=== PATIENT | male | born 1940 | race Caucasian/White ===

== ENCOUNTER → 2020-10-07 14:02 | Outpatient (BNVA) | payer MEDICARE, SELFPAY | PROVIDERS: PCP Internal Medicine Endocrinology, Diabetes & Metabolism; Visit Provider Hospitalist | DX: J44.9 Chronic obstructive pulmonary disease, unspecified (principal); G47.33 Obstructive sleep apnea (adult) (pediatric); R06.00 Dyspnea, unspecified; Z99.89 Dependence on other enabling machines and devices | CPT/HCPCS: 99212 ==

== ENCOUNTER 2021-04-07 12:25 | Outpatient (REF) | payer MEDICARE, SELFPAY ==
--- NOTE | ~2021-04-07 | XR_ITS ---
EXAMINATION: XR CHEST CLINICAL INFORMATION: Dyspnea unspecified. COMPARISON: Chest radiograph 02/19/2020, 09/29/2019. TECHNIQUE: 2 views of the chest were obtained. FINDINGS: Right supraclavicular and right cervical vascular clips are again noted and may correspond to cervical lymph node dissection. Cardiomediastinal silhouette is normal in appearance. No effusions or pneumothoraces are identified. Vague density suspicious for left base calcified pleural plaques is present and unchanged compared with 09/29/2019. A normal pattern of pulmonary vasculature is identified. No focal pulmonary consolidation is noted. Partial visualization is made of deformity of the left humeral head is not fully included within the image [id number]. XR/XR chest 2V IMPRESSION: 1. No acute cardiopulmonary abnormalities identified. No evidence of active pulmonary edema or pneumonia. 2. 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 3. Multiple vascular clips within the right supraclavicular and right cervical region. 4. Partially visualized deformity of the left humeral head which may represent a combination of arthropathic changes and posttraumatic deformity.
--- NOTE | 2021-04-07 17:47 | PFT_ITS ---
Forced vital capacity, FEV1, [id number] and MVV are all markedly decreased. FEV1/FVC ratio is normal. After bronchodilator therapy, there is a slight improvement in FEV1, [id number]. Total lung capacity moderately decreased. Residual volume normal. Diffusion capacity moderately decreased. CONCLUSION: Moderately severe restrictive pulmonary disorder. Also presence of mild obstructive airway disorder with good response to bronchodilator therapy. This indicates that the patient probably does have a component of bronchial asthma. Clinical correlation recommended. Xiomara Smith MD MSB/MODL / [id number]
== END 2021-04-07 12:26 | disposition home or self-care (01) ==
LOC: HO.RESP 12:25
PROVIDERS: Visit Provider Hospitalist
DX: R60.0 Localized edema (principal); J44.9 Chronic obstructive pulmonary disease, unspecified
CPT/HCPCS: 71046; 94060; 94727; 94729; 99212

== ENCOUNTER → 2021-10-13 13:09 | Outpatient (BNVA) | payer MEDICARE, SELFPAY | PROVIDERS: PCP Internal Medicine Endocrinology, Diabetes & Metabolism; Visit Provider Hospitalist | DX: J44.9 Chronic obstructive pulmonary disease, unspecified (principal); J61 Pneumoconiosis due to asbestos and other mineral fibers; R06.02 Shortness of breath; G47.33 Obstructive sleep apnea (adult) (pediatric); Z99.89 Dependence on other enabling machines and devices | CPT/HCPCS: 99212 ==

== ENCOUNTER 2021-10-19 14:19 | Outpatient (REF) | payer MEDICARE, SELFPAY ==
--- NOTE | ~2021-10-19 | CT_ITS ---
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 COMPARISON: Chest x-ray 04/07/2021 TECHNIQUE: Multidetector volumetric CT imaging of the chest was done. Axial MIP volume rendering provided. Sagittal and coronal reformatted images were obtained. This CT examination was performed using dose optimization techniques as appropriate, variously including the following: *Automated exposure control *Adjustment of mA and/or kV according to patient size (this includes techniques or standardized protocols for targeted exams where dose is matched to indication/reason for exam; i.e. extremities or head) *Use of iterative reconstruction technique DLP: 537 mGy-cm FINDINGS: ELECTRONIC GLUER: Well-inflated lungs LUNGS: The lungs are well-expanded without acute pneumonic process. There is an ill-defined 7 mm ground-glass opacity, right upper lobe axial image 80/4. There is plate-like atelectasis right lower lobe. No pulmonary nodule or mass seen. MEDIASTINUM: There are surgical magnus seen in the right neck from previous intervention. Central trachea and the bronchi widely patent. Heart size and the great vessels are normal caliber. There are no coronary artery calcification. No pericardial effusion. No abnormal size mediastinal or hilar lymph nodes seen. Thyroid lobes are not clearly visualized. PLEURA: There are punctate bilateral posterior pleural calcifications but no pleural thickening or effusion. AXILLA: There are no abnormal axillary lymph nodes. The chest wall is unremarkable. UPPER ABDOMEN: Visualized liver, spleen and pancreas appear unremarkable. OSSEOUS STRUCTURES: There is no lytic or sclerotic process seen. There is mild ventral spondylosis of dorsal spine. CT/CT chest wo con IMPRESSION: 1. Mild bilateral thin plaque-like pleural calcifications but no pleural effusion or thickening seen. 2. Nonspecific ground-glass opacity, right upper lobe. Plate-like atelectasis right lower lobe. No mass, consolidation or pulmonary nodules seen. 3. No abnormal mediastinal or axillary lymphadenopathy seen. Fleischner guidelines were followed.
== END 2021-10-19 14:20 | disposition home or self-care (01) ==
LOC: HO.CT 14:19
PROVIDERS: PCP Internal Medicine Endocrinology, Diabetes & Metabolism; Visit Provider Hospitalist
DX: J44.9 Chronic obstructive pulmonary disease, unspecified (principal); J61 Pneumoconiosis due to asbestos and other mineral fibers
CPT/HCPCS: 71250

== ENCOUNTER → 2021-12-09 13:48 | Outpatient (BNVA) | payer MEDICARE, SELFPAY | PROVIDERS: PCP Internal Medicine Endocrinology, Diabetes & Metabolism; Visit Provider Hospitalist | DX: J44.9 Chronic obstructive pulmonary disease, unspecified (principal); J61 Pneumoconiosis due to asbestos and other mineral fibers; J92.0 Pleural plaque with presence of asbestos; G47.33 Obstructive sleep apnea (adult) (pediatric); R91.8 Other nonspecific abnormal finding of lung field; Z79.899 Other long term (current) drug therapy; Z99.81 Dependence on supplemental oxygen; Z99.89 Dependence on other enabling machines and devices | CPT/HCPCS: 99212 ==

== ENCOUNTER → 2022-06-12 13:27 | Outpatient (BNVA) | payer OTHER, SELFPAY | PROVIDERS: PCP Internal Medicine Endocrinology, Diabetes & Metabolism; Visit Provider Hospitalist | DX: J44.9 Chronic obstructive pulmonary disease, unspecified (principal); G47.33 Obstructive sleep apnea (adult) (pediatric); R06.02 Shortness of breath; J61 Pneumoconiosis due to asbestos and other mineral fibers; J92.0 Pleural plaque with presence of asbestos; R91.8 Other nonspecific abnormal finding of lung field; Z99.89 Dependence on other enabling machines and devices | CPT/HCPCS: 99212 ==

== ENCOUNTER 2022-10-23 06:25 | Outpatient (REF) | payer MEDICARE, SELFPAY ==
--- NOTE | ~2022-10-23 | CT_ITS ---
EXAMINATION: CT CHEST WITHOUT CONTRAST CLINICAL INFORMATION: Solitary pulmonary nodule. COMPARISON: 10/19/2021 TECHNIQUE: Multidetector volumetric CT imaging of the chest was done. Axial MIP volume rendering provided. Sagittal and coronal reformatted images were obtained. This CT examination was performed using dose optimization techniques as appropriate, variously including the following: *Automated exposure control *Adjustment of mA and/or kV according to patient size (this includes techniques or standardized protocols for targeted exams where dose is matched to indication/reason for exam; i.e. extremities or head) *Use of iterative reconstruction technique DLP: 406 mGy-cm FINDINGS: LUNGS: The previously seen ill-defined ground-glass opacity in the right upper lobe is larger. By my measurements, this previously measured about 7-8 mm and, on the current study, this measures 13 mm. In addition, there appears to be more of a solid component associated with this than seen on the prior exam. The density now extends to the pleural surface and is associated with some mild pleural thickening. No other worrisome masses, infiltrates or nodules are seen. MEDIASTINUM: No mediastinal or hilar lymphadenopathy. Surgical clips are noted in the right neck. CORONARY ARTERY CALCIFICATION: Present. PLEURA: Again seen are bilateral calcified pleural plaques, left greater than right. No pleural effusions. AXILLA: There is a 3.1 x 2.6 x 3.2 cm soft tissue mass present in the left axilla, previously this was smaller and measured 2.4 x 1.9 x 2.8 cm. UPPER ABDOMEN: Unremarkable. OSSEOUS STRUCTURES: Degenerative changes are present in the spine. CT/CT chest wo IV con IMPRESSION: 1. Increasing size of the right upper lobe ground-glass opacity with increased solid component. 2. Enlarging left axillary mass. 3. PET/CT may be useful for further evaluation. Fleischner guidelines were followed.
== END 2022-10-23 06:26 | disposition home or self-care (01) ==
LOC: HO.CT 06:25
PROVIDERS: PCP Internal Medicine Endocrinology, Diabetes & Metabolism; Visit Provider Hospitalist
DX: R91.1 Solitary pulmonary nodule (principal)
CPT/HCPCS: 71250

== ENCOUNTER → 2022-12-05 12:34 | Outpatient (BNVA) | payer MEDICARE, SELFPAY | PROVIDERS: PCP Internal Medicine Endocrinology, Diabetes & Metabolism; Visit Provider Hospitalist | DX: J44.9 Chronic obstructive pulmonary disease, unspecified (principal); J92.0 Pleural plaque with presence of asbestos; J61 Pneumoconiosis due to asbestos and other mineral fibers; R91.8 Other nonspecific abnormal finding of lung field; R91.1 Solitary pulmonary nodule; G47.33 Obstructive sleep apnea (adult) (pediatric); R06.02 Shortness of breath; Z99.89 Dependence on other enabling machines and devices | CPT/HCPCS: 99212 ==

== ENCOUNTER 2022-12-07 08:23 | Outpatient (REF) | payer MEDICARE, SELFPAY ==
--- NOTE | 2022-12-07 10:14 | PFT_ITS ---
DIAGNOSIS: Dyspnea. SPIROMETRY: FEV1 to FVC of 72% with an FEV1 of 1.41 L, which is 53% predicted and FVC of 1.94 L, which is 51% predicted. No significant response to bronchodilator is noted. The FEF 25/75 has decreased down to 49% predicted and maximum voluntary ventilation 44% predicted. LUNG VOLUMES: Total lung capacity 72% predicted with an expiratory residual volume of 22% predicted. DIFFUSION CAPACITY: DLCO 50% predicted, but it does correct to 85% predicted when correcting for the alveolar volume. COMPARISON: PFTs from 2020. INTERPRETATION: No definitive obstructive ventilatory defect. The patient does have evidence of small airway disease, which could be secondary to his body habitus, although asthma also in the differential. There was also a significant decrease in the maximum voluntary ventilation secondary to likely deconditioning. Lung volumes do demonstrate a restricted ventilatory defect consistent with mild respiratory lung disease, partly due to his body habitus and his decrease in the expiratory residual volume. The patent also has a moderate diffusion impairment and does correct to normal and correcting for the alveolar volume. Clinical correlation warranted. MD NADJA Reardon/MODL / [id number]
== END 2022-12-07 08:24 | disposition home or self-care (01) ==
LOC: HO.RESP 08:23
PROVIDERS: PCP Internal Medicine Endocrinology, Diabetes & Metabolism; Visit Provider Hospitalist
DX: R91.1 Solitary pulmonary nodule (principal)
CPT/HCPCS: 94060; 94727; 94729

== ENCOUNTER → 2022-12-22 10:30 | Outpatient (BNVA) | payer MEDICARE, SELFPAY | PROVIDERS: PCP Internal Medicine Endocrinology, Diabetes & Metabolism; Visit Provider Surgery | DX: R91.1 Solitary pulmonary nodule (principal) | CPT/HCPCS: 99202 ==

== ENCOUNTER 2023-01-09 07:06 | Outpatient (REF) | payer MEDICARE, SELFPAY ==
--- NOTE | ~2023-01-09 | CT_ITS ---
EXAMINATION: CT CHEST WITHOUT CONTRAST CLINICAL INFORMATION: Pulmonary nodule COMPARISON: Previous chest CT most recent September 2022 TECHNIQUE: Multidetector volumetric CT imaging of the chest was done. Axial MIP volume rendering provided. Sagittal and coronal reformatted images were obtained. This CT examination was performed using dose optimization techniques as appropriate, variously including the following: *Automated exposure control *Adjustment of mA and/or kV according to patient size (this includes techniques or standardized protocols for targeted exams where dose is matched to indication/reason for exam; i.e. extremities or head) *Use of iterative reconstruction technique DLP: 426 mGy-cm FINDINGS: BUSINESS LEADER: LUNGS: Heterogeneous or semisolid right upper lobe nodule. This is not appreciably changed from most recent exam September 2022 and increased from older chest CT September 2021. This measures 1.3 x 0.9 cm in transverse and AP dimension axial image series 7. Denser solid component measures 0.6 x 0.3 cm in transverse and AP dimension axial image 2:15 series 7 and is unchanged from most recent exam. This extends to the pleural surface and there is mild adjacent pleural thickening. This is unchanged. There is faint increased groundglass attenuation in the right upper lobe measuring 1.8 cm axial image 147 series 9. There are small peribronchial nodules or increase in peribronchial attenuation. There is a 2 cm cyst in the left lower lobe. There is subsegmental atelectasis in the posterior medial left lower lobe adjacent to the spine and descending thoracic aorta. The lungs are otherwise clear. MEDIASTINUM: Surgical clips in the right lower neck. The mediastinum is normal. CORONARY ARTERY CALCIFICATION: Mild PLEURA: Scattered areas of bilateral mild pleural thickening and pleural calcification. No mass or pleural effusion. AXILLA: No lymphadenopathy. UPPER ABDOMEN: Unremarkable. OSSEOUS STRUCTURES: Degenerative changes of the spine. CT/CT chest wo IV con IMPRESSION: Stable heterogeneous right upper lobe nodule most recent exam September 2022. This is increased from older exam September [address] follow-up recommended. Fleischner guidelines were followed.
== END 2023-01-09 07:07 | disposition home or self-care (01) ==
LOC: HO.CT 07:06
PROVIDERS: PCP Internal Medicine Endocrinology, Diabetes & Metabolism; Visit Provider Surgery
DX: R91.1 Solitary pulmonary nodule (principal)
CPT/HCPCS: 71250

== ENCOUNTER → 2023-02-08 09:27 | Outpatient (BNV) | payer MEDICARE, SELFPAY | PROVIDERS: PCP Internal Medicine Endocrinology, Diabetes & Metabolism; Visit Provider Internal Medicine Medical Oncology | DX: C34.91 Malignant neoplasm of unspecified part of right bronchus or lung (principal) | CPT/HCPCS: 99204; 99213 ==

== ENCOUNTER 2023-02-13 12:20 | Outpatient (REF) | payer MEDICARE, SELFPAY ==
--- NOTE | ~2023-02-13 | US_ITS ---
EXAMINATION: Ultrasound extremity nonvascular CLINICAL INFORMATION: Patient presents for left axillary lymph node biopsy COMPARISON: Previous chest CT most recent 01/09/2023 TECHNIQUE: Ultrasound of the left axilla was performed. FINDINGS: No solid soft tissue mass or lymph node is appreciated. There is a cystic area in the left axilla adjacent to the bone. This measures 4 x 2 x 2.3 cm. When compared with previous chest CT scans, this likely represents a ganglion or cyst related to left shoulder arthritis. No ultrasound-guided biopsy was performed. US/US extremity nonvascular IMPRESSION: No lymphadenopathy or solid mass. 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
== END 2023-02-13 12:21 | disposition home or self-care (01) ==
LOC: HO.US 12:20
PROVIDERS: PCP Internal Medicine Endocrinology, Diabetes & Metabolism; Visit Provider Hospitalist
DX: R22.32 Localized swelling, mass and lump, left upper limb (principal)
CPT/HCPCS: 76882

== ENCOUNTER 2023-03-08 12:53 | Outpatient (REF) | payer MEDICARE, SELFPAY ==
--- NOTE | ~2023-03-08 | XR_ITS ---
EXAMINATION: XR CHEST CLINICAL INFORMATION: Bronchitis. COMPARISON: CT chest 01/09/2023 and chest radiograph 04/07/2021. TECHNIQUE: 2 views of the chest were obtained. FINDINGS: Compared to the prior chest radiograph as well as the prior CT scan, there is increased volume loss in the right lung with shift of the mediastinum to the right and increased opacity at the right lung apex. A right pleural effusion appears to be present as well. XR/XR chest 2V IMPRESSION: Increasing volume loss in the right lung with shift of the mediastinum to the right and increased opacity at the right lung apex. Findings could represent right upper lobe collapse. A contrast-enhanced CT scan could be performed for further evaluation.
== END 2023-03-08 12:54 | disposition home or self-care (01) ==
LOC: HO.XRAY 12:53
PROVIDERS: PCP Internal Medicine Endocrinology, Diabetes & Metabolism; Visit Provider Hospitalist
DX: R91.1 Solitary pulmonary nodule (principal); J44.9 Chronic obstructive pulmonary disease, unspecified; R06.02 Shortness of breath; G47.33 Obstructive sleep apnea (adult) (pediatric); Z99.89 Dependence on other enabling machines and devices
CPT/HCPCS: 71046; 99212

== ENCOUNTER 2023-03-08 12:53 | Outpatient (AMB) | payer MEDICARE, SELFPAY ==
--- NOTE | 2023-03-08 13:03 | MHC.OFFVIS ---
Intake Vital Signs 03/08/23 13:04 Height 5 ft 9 in Weight 283 lb 5 oz BMI 41.8 Pulse 82 Pulse Source Pulse Oximeter Pulse Oximetry (%) 96 Oxygen Delivery Method Room Air Comment 5 Liters Oxygen(Inogen) Intake Visit Reasons: copd [employer] Project [employer] Required: No Allergies acetaminophen [Percocet] Allergy (Severe, Verified 03/08/23 13:05) Difficulty Swallowing oxycodone [Percocet] Allergy (Severe, Verified 03/08/23 13:05) Difficulty Swallowing HPI HPI Comments History of Present Illness Details The patient is a 82-year-old gentleman known asthma COPD overlap syndrome in addition to chronic cough and DUANE on CPAP. Overall he is doing better on the budesonide and albuterol. He hasn't had to use yet Peter all on a regular basis. However, now that he has been using he started having significant shakes and tremors. There pretty moderate severity. Usually when they happen his knee down because he he is concerned is going to fall. His symptoms may last for several hours. He is wondering if he can do something about it. He has a lot of albuterol left over. We talked about switching over to Xopenex or given him a lower dose concentration albuterol. In the meantime he can try doing less time on the nebulizer with the albuterol to do a half a treatment and see if this is enough to be beneficial without as many side effects. He has been coughing. The cough is a lot better. Nonproductive in nature. We talked about doing an x-ray. He will do it during the next time. Otherwise he has had some lower extremity edema. 10/07/2020 the patient is here for pulmonary follow-up visit. The patient describes significant shortness of breath. He feels that he is getting more winded with any activity. He does continue taking his nebulized therapy with improvement of his symptoms. However, the Xopenex even makes him have tremors and therefore he does not use it as often as he should. He should be using the budesonide regularly. Patient continues using the CPAP therapy. The CPAP therapy continues to be affecting beneficial. He does use it for more than 4 hours a night. He states that he has not been getting supplies for some reason from his [employer] company. I will send a prescription over so he can continue getting supplies. He has had very good adherence to therapy. In addition to that he also needs to get supplies for his nebulizer equipment. At some point he declined to get any supplies and then he has not gotten any supplies since then. Will send another prescription for him to get supplies again from his DME company. During the visit the patient did go for 6 minutes walk test the patient unfortunately decreased down to 88% on room air. Patient qualify for oxygen. He was very short of breath with a Tasha score of 8/10. He was placed on 2 L in his respiratory status did improve. He was able to ambulate further in his maintain a pulse ox of 94% on 2 L with activity which is reassuring. Will set him up with oxygen through his current [employer] company [employer]. 04/07/2021 the patient is here for a pulmonary follow-up visit. Overall the patient is feeling better on the oxygen. The oxygen therapy has been affecting beneficial. He continues with his nebulized therapy. At times he has not had to use it as often. Specially since he is getting some much more relief from the oxygen. He did undergo pulmonary function studies which were personally by me which demonstrated a moderate restrictive ventilatory defect. No significant obstruction noted. Therefore, most of his respiratory issues are due to his restrictive lung disease. 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 Patient does have evidence of asbestos related lung disease. 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 I will have undergo a chest x-ray. The patient needs to continue using the oxygen with activity and also he can also use it at rest specially if his pulse ox is below 90%. He is also having issues with lower extremity edema. Recently his Lasix was increased in that did improve his respiratory status and his edema as well. Otherwise patient is without any other complaints. 10/13/2021 the patient is here for a pulmonary follow-up visit. He continues to have dyspnea on exertion. Moderate severity. The oxygen has been helpful. In addition to that he continues with respiratory therapy. We did review his last chest x-ray Was abnormal with pleural plaques. At this point the patient continues to be symptomatic and the best way to assess the abnormal chest x-ray will be biking a CT scan of the chest to better address the area. The patient does have a significant history of acid exposure. 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 He starts work at 19:59 and again he worked in the industry until he retired. In view of the patient's worsening respiratory it is very likely that he has asbestosis from his significant exposure while he was working for those many years. Will request a CT scan at this time to better address the symptoms and the abnormal chest x-ray. In the meantime the patient has been using his CPAP with the oxygen. The CPAP therapy has been affecting beneficial. He has had the CPAP machine for now about more than 10 years. CPAP is no longer working effectively in cannot be monitored regularly. Under request a replacement CPAP for the patient for him to continue using with the oxygen. 12/09/2021 the patient is here for a pulmonary follow-up visit. Overall the patient continues to have dyspnea on exertion [id number] severity. The oxygen continues to be very helpful. He is here with her son today. We did review his CT scan of the chest demonstrating the asbestos related changes. He does have pleural plaques bilaterally consistent with his exposure to work-related asbestos consistent with pneumoconiosis. In addition to that he does have a 7 mm ground-glass the nodular density in the right upper lobe area that will need follow-up. Regarding the CPAP therapy. This continues to be affecting beneficial. Although, his CPAP is no longer functional and he needs to get a replacement machine. We did request 1 during the last visit and hopefully this will be provided soon. 06/12/2022 the patient is here for a pulmonary follow-up visit. He continues to do well. He is responding well to his respiratory therapy. He was also using his oxygen continuously. He has a portable oxygen concentrator that he uses when he leaves the home. He does use the oxygen with his CPAP at nighttime. He did get the new CPAP in appears to be working well. The CPAP therapy has been affecting beneficial. He does use it for more than 4 hours a night. We did review his last CT scan of the chest that was done back in November 2021. He appears to have some nodular densities some of them appear to be subsolid in nature specially the 1 in the right upper lobe. therefore, this nodule appears to be more concerning and will need close follow-up. Therefore will plan to repeat the CT scan prior to his next appointment in the spring. If the patient has any worsening symptoms prior to that he is to call the office for an earlier evaluation. 12/05/2022 the patient is here for a pulmonary follow-up visit. Overall he is doing better from a respiratory status. He has had significant amount of weight loss that has been intentional. This has helped his breathing and also other comorbidities. He continues uses respiratory therapy as prescribed. He is also using the CPAP. The CPAP therapy continues to be affecting beneficial. He does use with oxygen. He does use it for more than 4 hours a night. He did undergo a recent CT scan of the chest and here for follow-up. We did review the findings. It appears that the right upper lobe pulmonary nodule which is subsolid in nature has become slightly larger. The fact that is becoming solidified is concerning for a malignant transformation. It is also mentioned about the axillary density which appears to be larger as well. Based on the findings I did talk to the patient about the different options. One option would be to refer him to thoracic surgery to see about potential resection of the pulmonary nodule. The patient already has evidence of chronic respiratory failure but if this is malignant surgery will have curative intent if there is no other disease elsewhere. Another option be to try to attempt a CT-guided biopsy. This will be helpful to get a better understanding of this changing nodular density specially in view of his respiratory failure and avoiding any unnecessary surgery. The trigger option would be to get a PET scan. PET scan unfortunately, may not be very effective with subsolid nodules but in view of having the other findings indeed would help assess the metabolic activity of these nodular densities. The 4th option would be to watch and wait. However based on the fact that this nodular densities change in both in size and also in solid component would advise and not to wait. 03/08/2023 the patient is here for a pulmonary follow-up visit. 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 He required a lobectomy. He also had question on involvement in the periphery and was recommended to undergo chemotherapy. PDL1 activity was negligible. The patient opted on no chemotherapy at this time. He has been noticing worsening respiratory symptoms and also worsening cough for the last several days. He has been using his oxygen at 5 L pulse and then continues at home. Denies any fevers or chills. Does feel some chest heaviness. Will go and request a chest x-ray and also start him on prednisone and antibiotics. if the patient is no better he needs to call the office or go to the ER for further care. The patient is also having dysphagia. Family for some reason are resistant to a barium swallow. I will refer to speech pathology for an evaluation. 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 Pulmonary nodule T2DM (type 2 diabetes mellitus) Surgical History Status post removal of lung Family History Mother Anemia Stroke Father Dementia Social History Patient Tobacco Use Status: Former Tobacco user Tobacco use type: Cigarette Years Smoked: 20 years service: No Review of Systems Const Denies night sweats and Reports weight loss ENT Denies change in voice, Denies lip swelling, Denies mouth pain, Reports nasal congestion, Reports nasal discharge and Denies tongue swelling Card Reports dyspnea and Reports dyspnea on exertion Resp Reports chest congestion, Reports cough, Reports dyspnea, Reports dyspnea on exertion and Reports wheezing GI Denies abdominal pain Musc Denies no additional complaints Neuro Denies Neuro-related abnormal movements Psych Denies no additional complaints Roel/Lymph Denies easy bleeding and Denies lymphadenopathy Aller/Immun Denies lip swelling, Denies tongue swelling and Reports wheezing Physical Exam Vital Signs: Last Vital Signs Pulse 82 03/08/23 13:04 Pulse Ox 96 03/08/23 13:04 Oxygen Delivery Method Room Air 03/08/23 13:04 BMI result Body Mass Index 41.8 Const General: alert HEENT General nose exam: Abnormal external nose present and Nasal discharge present Eyes Pupils: Equal, round and reactive pupils present Neck Neck: Yes normal visual inspection, Yes full ROM and Yes no lymphadenopathy Chest Chest palpation & inspection: normal inspection of the chest Resp Auscultation: no wheezes and diminished lung sounds Cardio Rate: regular rate Rhythm: regular rhythm Heart sounds: S1 normal heart sound present and S2 normal heart sound present GI Palpation (GI): Soft to palpation and nontender Auscultation: normal bowel sounds General: Yes no CVA tenderness Back/Spine/Pelvis Back: no CVA tenderness Skin General skin exam: rashes and/or lesions noted Neuro Cranial nerves: Yes Equal, round and reactive pupils present Assessment & Plan Assessment & Plan (1) Asthma-COPD overlap syndrome: Code(s): J44.9 - Chronic obstructive pulmonary disease, unspecified (2) DUANE on CPAP: Code(s): G47.33 - Obstructive sleep apnea (adult) (pediatric); Z99.89 - Dependence on other enabling machines and devices (3) Dyspnea: Code(s): R06.00 - Dyspnea, unspecified Qualifiers: Dyspnea type: shortness of breath Qualified Code(s): R06.02 - Shortness of breath (4) Pneumoconiosis due to asbestos and other mineral fibers: Code(s): J61 - Pneumoconiosis due to asbestos and other mineral fibers (5) 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: Code(s): J92.0 - Pleural plaque with presence of asbestos (6) Pulmonary nodule: Code(s): R91.1 - Solitary pulmonary nodule (7) Adenocarcinoma of lung, stage 1: Code(s): C34.90 - Malignant neoplasm of unspecified part of unspecified bronchus or lung Plan start Prednisone taper start Doxycycline CXR Continue oxygen with activity and sleep Continue respiratory therapy: Advair MARICEL as needed Continue CPAP therapy, recent replacement early 2021 Continue neb therapy speech pathology eval for dysphagia post op F/U 2-3 months Orders: Orders XR chest 2V Today J40 - Bronchitis, not specified as acute or chronic Referrals Speech and Hearing Referral R13.10 - Dysphagia, unspecified Medications: New levalbuterol HCl 1.25 mg (3 mL) inhalation BID 30 days 180 mL 0RF J44.9 - Chronic obstructive pulmonary disease, unspecified prednisone PO daily; Take 2 tabs daily x 5 days, then 1 tablet daily x 5 days 10 days 15 tabs 0RF doxycycline monohydrate 100 mg PO BID 14 days 28 tabs 0RF Coding Level of Care Code Est Pt Level 4 (02245) Diagnoses Asthma-COPD overlap syndrome J44.9 DUANE on CPAP G47.33; Z99.89 Dyspnea R06.02 Dyspnea type: shortness of breath Pneumoconiosis due to asbestos and other mineral fibers J61 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
[2023-03-08 13:04] VITALS: PULSE 82; O2SAT 96; BMI 41.8
== END 2023-03-08 13:25 | disposition home or self-care (01) ==
PROVIDERS: PCP Internal Medicine Endocrinology, Diabetes & Metabolism; Visit Provider Hospitalist
DX: J44.9 Chronic obstructive pulmonary disease, unspecified (principal); G47.33 Obstructive sleep apnea (adult) (pediatric); Z99.89 Dependence on other enabling machines and devices; R06.02 Shortness of breath; J61 Pneumoconiosis due to asbestos and other mineral fibers; J92.0 Pleural plaque with presence of asbestos; R91.1 Solitary pulmonary nodule; C34.90 Malignant neoplasm of unspecified part of unspecified bronchus or lung
CPT/HCPCS: 99214

== ENCOUNTER 2023-04-02 14:43 | Outpatient (REF) | payer MEDICARE, SELFPAY ==
--- NOTE | ~2023-04-02 | FL_ITS ---
EXAMINATION: XR BARIUM SWALLOW CLINICAL INFORMATION: Dysphagia. COMPARISON: None available. TECHNIQUE: Fluoroscopic guidance was provided for modified barium swallow performed by the speech and hearing department. The patient was administered liquid barium, thickened liquid barium and various food mixed with barium. FINDINGS: There is penetration seen with liquid barium. No penetration is seen with any other media. No aspiration is seen. There is some retention in the vallecula with honey thickness, thickened barium. FLUOROSCOPY TIME: 1.9 minutes DOSE AREA PRODUCT: 6.4 mcpherson per centimeter squared. 1 saved fluoroscopic image. FL/FL barium swallow modified IMPRESSION: Fluoroscopy guidance for modified barium swallow. Penetration with liquid barium. No aspiration.
--- NOTE | 2023-04-06 17:25 | MHC.SL.IMP ---
Date of Plan of Treatment: 04/02/23 Onset of Symptoms/Illness: 03/08/23 Date Treatment Started: 04/02/23 Admitting Diagnosis: History of stage I lung cancer, asthma, COPD overlap syndrome in addition to chronic cough and DUANE on CPAP Primary Speech & Language Diagnosis: R13.12 Oropharyngeal Phase Dysphagia Reason for Today's Visit: 25463 Modified Barium Swallow Study Pre-evaluation Dietary Consistencies: Regular Pre-evaluation Liquid Consistency: Thin Pre-evaluation Medication Administration: Whole with Liquid Medical History: Modified Barium Swallow Study Fluoroscopic Evaluation of Swallowing Function CPT Code 42339 Evaluation Year: 2022 Reason for Study: Pt reports globus sensation and belching. Referring Physician: Chloe Thomas MD Evaluating Clinician: Amanda Boyce MA, CCC-BASEBALL WINDER Study Number: 1 Patient Name: Andrés Pedraza Status: Outpatient Age: 82 Gender: Male Medical History History of stage I lung cancer, asthma, COPD overlap syndrome in addition to chronic cough and DUANE on CPAP Current (pre-evaluation) Intake/Diet: Route: PO Diet Grade: Regular Liquid Consistencies: Thin Pre-Study Functional Oral Intake Scale (FOIS): 7- Total oral intake with no restrictions Pain: None reported at time of study SUBJECTIVE: Pt is an 82 year old male w/ hx asthma, COPD overlap syndrome, in addition to chronic cough and DUANE on CPAP. Pt is s/p surgery for R-upper lobe cancer, required a lobectomy. Pt was referred for a modified barium swallow study (MBSS) due to his reports of having dysphagia. Pt reported he ?just can?t swallow? sometimes and ?needs to drink water to liquefy it.? Pt reports having difficulty with foods such as bread and toast. Pt described feeling globus sensation below the sternum and ?feeling it go back up into the throat.? Pt also reports burping a few hours after eating. Pt reports onset shortly after his lobectomy. Additionally, pt reports feeling a ?round lump,? and believes he has a hiatal hernia. Oral Motor Exam Mouth Occlusion: Normal Oral-Facial Teeth Characteristics: Dentures Oral-Facial Smile (Lips) Description: Normal Oral-Facial Puff Cheeks Description: Normal Tongue Size: Normal Tongue Excursion Description: Normal Tongue Range of Movement Description: Normal Tongue Speed of Movement Description: Normal Tongue Strength of Movement (against opposing pressure): Normal Tongue Movement Characteristics: Normal/Absent Is patient able to manage secretions?: Yes Food and Liquid Trials: Oral Impairment: Lip Closure: Did not test Oral Impairment: Tongue Control During Bolus Hold: 1=Escape to lateral buccal cavity/floor of mouth (FOM) Oral Impairment: Bolus Preparation/Mastication: 0=Timely and efficient chewing and mashing Oral Impairment: Bolus Transport/Lingual Motion: 2=Slowed tongue motion Oral Impairment: Oral Residue: 1=Trace residue lining oral structures Oral Impairment:Initiation of Pharyngeal Swallow: 1=Bolus head in valleculae Pharyngeal Impairment: Soft Palate Elevation: 0=No bolus between soft palate (SP)/pharyngeal wall (PW) Pharyngeal Impairment: Laryngeal Elevation: 1=Partial thyroid cartilage/arytenoids to epiglottic petiole movement Pharyngeal Impairment: Anterior Hyoid Excursion: 1=Partial anterior movement Pharyngeal Impairment: Epiglottic Movement: 1=Partial inversion Pharyngeal Impairment: Laryngeal Vestibular Closure:: 1=Incomplete: narrow column air/contrast in laryngeal vestibule Pharyngeal Impairment: Pharyngeal Stripping Wave: 0=Present: complete Pharyngeal Impairment: Pharyngeal Contraction: 2=Unilateral bulging Pharyngeal Impairment: Pharyngoesophageal Segment Openin=Partial distention/partial duration: partial obstruction of flow Pharyngeal Impairment: Tongue Base (TB) Retraction: 3=Wide column of contrast/air between TB and posterior PW Pharyngeal Impairment: Pharyngeal Residue: 1=Trace residue within or on pharyngeal structures Pharyngeal Impairment: Esophageal Clearance Upright Position: Did not test Impressions and Recommendations Clinical Observations: OBJECTIVE: Time-out: performed at 15:15 Evaluation Start: 15:00; Stop: 15:04 Patient Positioning: Standing Viewing Planes: [place]BL[place] & AP Contrast: MBSImP? Standardized Protocol using commercially prepared, standardized Barium viscosities, including: Varibar? THIN LIQUID (40% w/v, <15 cps) , Varibar? NECTAR (40% w/v, <150-450 cps) , Varibar? THIN HONEY (40% w/v, <800-1800 cps) , 1/2 Shortbread Cookie (1 x1 x.25 ) MBSImP ID: [id number] MBSImP Results: Lip closure for intraoral bolus containment could not be assessed due to logistical reasons not related to physiologic impairment. Tongue control during bolus hold allowed bolus escape to the lateral buccal cavity/floor of mouth. Bolus preparation and mastication resulted in timely and efficient chewing and mashing. Bolus transport/lingual motion was with slowed tongue motion. Oral residue was a trace, lining oral structures. Initiation of the pharyngeal swallow occurred when the bolus head was in the valleculae. Soft palate elevation resulted in no bolus between the soft palate and the pharyngeal wall. Laryngeal elevation was decreased, with partial superior movement of the thyroid cartilage/partial approximation of the arytenoids to the epiglottic petiole. Anterior hyoid excursion demonstrated partial anterior movement. Epiglottic movement resulted in partial inversion. Laryngeal vestibular closure was incomplete, with a narrow column of air/contrast noted within the laryngeal vestibule at the height of the swallow. Pharyngeal stripping wave was present and complete. Pharyngeal contraction resulted in unilateral bulging. Pharyngoesophageal segment opening demonstrated partial distension/partial duration, with partial obstruction of bolus flow. Tongue base retraction allowed a wide column of contrast or air between the retracted tongue base and the posterior pharyngeal wall. Pharyngeal residue was a trace within or on pharyngeal structures. Esophageal clearance in the upright position could not be assessed due to logistical reasons not related to physiologic impairment. Oral Impairment Score: 4 (absence of score, component 1) Pharyngeal Impairment Score: 10 Esophageal Impairment Score: --- (absence of score, component 17) Laryngeal Penetration and Aspiration: Neither penetration nor aspiration was observed in today's study with Honey-thick, [place]-thick. Penetration was observed in today's study. Thin Contrast entered the airway, remained above the vocal folds, and was ejected from the airway. ASSESSMENT: Clinician Assessment: This exam was conducted by a multidisciplinary team, which included a speech pathologist, radiologist, and waste transportation technician. Pt was standing for oblique and AP views. Pt trialed the following liquid and solid consistencies: thin liquid barium by cup, nectar thick liquid barium by cup, honey thick liquid barium by cup, pureed solid (applesauce mixed with barium paste), regular solid (Shari Doone cookie coated with barium paste). Unable to visualize labial seal. Posterior lingual motion was mildly slowed. Mastication was timely and efficient. There was trace residue on the tongue and in the floor of mouth, which was reduced with subsequent swallows. Pharyngeal swallow trigger initiated as the bolus head reached the valleculae. There was no nasopharyngeal reflux. Incomplete laryngeal elevation. Incomplete epiglottic inversion. Incomplete laryngeal vestibular closure. There was penetration with sips of thin liquid. No evidence of subsequent aspiration. Trace amount of contrast entered the airway above the vocal folds and spontaneously ejected during the swallow. No evidence of penetration or aspiration with trials of nectar thick liquids, honey thick liquids, and solid textures. With thicker textures (solids and honey thick liquids), there was trace retention on the tongue base, in the valleculae, and on the posterior pharyngeal wall. Pharyngeal residue was reduced with subsequent swallows. Liquid Intake Recommendation: Thin Liquid Intake Strategies: Small Sips, No Straws Dietary Recommendations: Regular Medication Administration: Whole with Puree Please contact the pharmacy regarding appropriate crushable or liquid drug formulations that are available whenever modified delivery is recommended. Compensatory Strategies Recommended: Sitting Upright (90 deg), Double Swallow, No Straw, Small Bites and Sips, Rate of Ingestion Change, Avoid Specific Foods Supervision during eating and or drinking: None Needed Recommendation for Speech Therapy: NA:Typical Evaluation Text Comment: PLAN: Intake Recommendations: Route: PO Diet Grade: Regular Liquid Consistencies: Thin Post-Study Functional Oral Intake Scale (FOIS): 7- Total oral intake with no restrictions This exam revealed penetration with thin liquid. No evidence of aspiration. Trace oral and pharyngeal residue cleared with subsequent swallows. Although pt did not evidence aspiration during this exam, presence of penetration does put pt at risk for subsequent aspiration. For that reason, pt is recommended the following aspiration precautions: -Take small bites of food -Moisten food with sauces/gravies as needed -Chew food well -Clear oral cavity before taking more bites -Follow each bite with dry swallow to promote pharyngeal clearance -Avoid mixed consistencies -Maintain upright 90 degree position while eating and drinking and for at least 30 minutes afterwards -Ensure daily oral care routine before first meal and after each subsequent meal -Liquid by teaspoon or cup -Avoid the use of straws -Take small, individual sips of liquid -Avoid taking consecutive sips Given pt?s underlying dx asthma, COPD, DUANE, and hx lung cancer, strongly recommend pt to continue monitoring his dysphagia. If there are any changes or worsening of symptoms, consult with MD, at which point a re-evaluation may be indicated. Pt?s reported symptoms (belching, burping, globus sensation localized below the level of the sternum) are more consistent with esophageal phase dysphagia. Recommend further workup w/ G.I. specialist to rule in/out esophageal pathology. Therapy Recommendations: Therapy will be discontinued Prognosis for Improvement: The prognosis for the patient to meet nutritional needs by mouth is good based on degree of impairment. Clinician - Supplemental, Miscellaneous Communication: It is important to note MBSS objective studies are snapshots in time and Patient function might vary with factors such as time of day or concomitant medical conditions. For this reason, the final treatment plan for this patient should rest with their medical care team. Additional recommendations should be considered with the totality of the Patient in mind. Thank for the opportunity to participate in the care of this patient. If you have any questions about the content of this report, please contact the [facility] at [facility]. Education: Education regarding findings from today's study and plans for therapy were provided to Patient and family/caregiver through Verbal Instruction. Understanding was expressed by the Patient and family/caregiver. Crisis Worker Clinician/Clinical Fellow: No Supervisory Statement: N/A Speech Language Pathologist: Amanda Boyce M.A., CCC-BASEBALL WINDER
== END 2023-04-02 14:44 | disposition home or self-care (01) ==
LOC: HO.XRAY 14:43
PROVIDERS: PCP Internal Medicine Endocrinology, Diabetes & Metabolism; Visit Provider Internal Medicine Medical Oncology
DX: R13.10 Dysphagia, unspecified (principal)
CPT/HCPCS: 74230; 92611

== ENCOUNTER → 2023-04-02 14:46 | Outpatient (BNV) | payer MEDICARE, SELFPAY | PROVIDERS: PCP Internal Medicine Endocrinology, Diabetes & Metabolism; Visit Provider Radiology Diagnostic Radiology | DX: R13.10 Dysphagia, unspecified (principal) | CPT/HCPCS: 74230 ==

== ENCOUNTER 2023-04-26 13:13 | Outpatient (AMB) | payer MEDICARE, SELFPAY ==
[2023-04-26 13:25] VITALS: PULSE 80; O2SAT 88; BMI 42.8
--- NOTE | 2023-04-26 13:25 | MHC.OFFVIS ---
Intake Vital Signs 04/26/23 13:25 Height 5 ft 9 in Weight 290 lb BMI 42.8 Pulse 80 Pulse Source Pulse Oximeter Pulse Oximetry (%) 88 L Intake Visit Reasons: copd Quantitative Associate Required: No Allergies acetaminophen [Percocet] Allergy (Severe, Verified 04/26/23 13:27) Difficulty Swallowing oxycodone [Percocet] Allergy (Severe, Verified 04/26/23 13:27) Difficulty Swallowing HPI HPI Comments History of Present Illness Details The patient is a 82-year-old gentleman known asthma COPD overlap syndrome in addition to chronic cough and DUANE on CPAP. Overall he is doing better on the budesonide and albuterol. He hasn't had to use yet Peter all on a regular basis. However, now that he has been using he started having significant shakes and tremors. There pretty moderate severity. Usually when they happen his knee down because he he is concerned is going to fall. His symptoms may last for several hours. He is wondering if he can do something about it. He has a lot of albuterol left over. We talked about switching over to Xopenex or given him a lower dose concentration albuterol. In the meantime he can try doing less time on the nebulizer with the albuterol to do a half a treatment and see if this is enough to be beneficial without as many side effects. He has been coughing. The cough is a lot better. Nonproductive in nature. We talked about doing an x-ray. He will do it during the next time. Otherwise he has had some lower extremity edema. 10/07/2020 the patient is here for pulmonary follow-up visit. The patient describes significant shortness of breath. He feels that he is getting more winded with any activity. He does continue taking his nebulized therapy with improvement of his symptoms. However, the Xopenex even makes him have tremors and therefore he does not use it as often as he should. He should be using the budesonide regularly. Patient continues using the CPAP therapy. The CPAP therapy continues to be affecting beneficial. He does use it for more than 4 hours a night. He states that he has not been getting supplies for some reason from his [employer]. I will send a prescription over so he can continue getting supplies. He has had very good adherence to therapy. In addition to that he also needs to get supplies for his nebulizer equipment. At some point he declined to get any supplies and then he has not gotten any supplies since then. Will send another prescription for him to get supplies again from his DME company. During the visit the patient did go for 6 minutes walk test the patient unfortunately decreased down to 88% on room air. Patient qualify for oxygen. He was very short of breath with a Tasha score of 8/10. He was placed on 2 L in his respiratory status did improve. He was able to ambulate further in his maintain a pulse ox of 94% on 2 L with activity which is reassuring. Will set him up with oxygen through his current DME company [employer]. 04/07/2021 the patient is here for a pulmonary follow-up visit. Overall the patient is feeling better on the oxygen. The oxygen therapy has been affecting beneficial. He continues with his nebulized therapy. At times he has not had to use it as often. Specially since he is getting some much more relief from the oxygen. He did undergo pulmonary function studies which were personally by me which demonstrated a moderate restrictive ventilatory defect. No significant obstruction noted. Therefore, most of his respiratory issues are due to his restrictive lung disease. 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 Patient does have evidence of asbestos related lung disease. 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 I will have undergo a chest x-ray. The patient needs to continue using the oxygen with activity and also he can also use it at rest specially if his pulse ox is below 90%. He is also having issues with lower extremity edema. Recently his Lasix was increased in that did improve his respiratory status and his edema as well. Otherwise patient is without any other complaints. 10/13/2021 the patient is here for a pulmonary follow-up visit. He continues to have dyspnea on exertion. Moderate severity. The oxygen has been helpful. In addition to that he continues with respiratory therapy. We did review his last chest x-ray Was abnormal with pleural plaques. At this point the patient continues to be symptomatic and the best way to assess the abnormal chest x-ray will be biking a CT scan of the chest to better address the area. The patient does have a significant history of acid exposure. 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 He starts work at 19:59 and again he worked in the industry until he retired. In view of the patient's worsening respiratory it is very likely that he has asbestosis from his significant exposure while he was working for those many years. Will request a CT scan at this time to better address the symptoms and the abnormal chest x-ray. In the meantime the patient has been using his CPAP with the oxygen. The CPAP therapy has been affecting beneficial. He has had the CPAP machine for now about more than 10 years. CPAP is no longer working effectively in cannot be monitored regularly. Under request a replacement CPAP for the patient for him to continue using with the oxygen. 12/09/2021 the patient is here for a pulmonary follow-up visit. Overall the patient continues to have dyspnea on exertion [id number] severity. The oxygen continues to be very helpful. He is here with her son today. We did review his CT scan of the chest demonstrating the asbestos related changes. He does have pleural plaques bilaterally consistent with his exposure to work-related asbestos consistent with pneumoconiosis. In addition to that he does have a 7 mm ground-glass the nodular density in the right upper lobe area that will need follow-up. Regarding the CPAP therapy. This continues to be affecting beneficial. Although, his CPAP is no longer functional and he needs to get a replacement machine. We did request 1 during the last visit and hopefully this will be provided soon. 06/12/2022 the patient is here for a pulmonary follow-up visit. He continues to do well. He is responding well to his respiratory therapy. He was also using his oxygen continuously. He has a portable oxygen concentrator that he uses when he leaves the home. He does use the oxygen with his CPAP at nighttime. He did get the new CPAP in appears to be working well. The CPAP therapy has been affecting beneficial. He does use it for more than 4 hours a night. We did review his last CT scan of the chest that was done back in November 2021. He appears to have some nodular densities some of them appear to be subsolid in nature specially the 1 in the right upper lobe. therefore, this nodule appears to be more concerning and will need close follow-up. Therefore will plan to repeat the CT scan prior to his next appointment in the spring. If the patient has any worsening symptoms prior to that he is to call the office for an earlier evaluation. 12/05/2022 the patient is here for a pulmonary follow-up visit. Overall he is doing better from a respiratory status. He has had significant amount of weight loss that has been intentional. This has helped his breathing and also other comorbidities. He continues uses respiratory therapy as prescribed. He is also using the CPAP. The CPAP therapy continues to be affecting beneficial. He does use with oxygen. He does use it for more than 4 hours a night. He did undergo a recent CT scan of the chest and here for follow-up. We did review the findings. It appears that the right upper lobe pulmonary nodule which is subsolid in nature has become slightly larger. The fact that is becoming solidified is concerning for a malignant transformation. It is also mentioned about the axillary density which appears to be larger as well. Based on the findings I did talk to the patient about the different options. One option would be to refer him to thoracic surgery to see about potential resection of the pulmonary nodule. The patient already has evidence of chronic respiratory failure but if this is malignant surgery will have curative intent if there is no other disease elsewhere. Another option be to try to attempt a CT-guided biopsy. This will be helpful to get a better understanding of this changing nodular density specially in view of his respiratory failure and avoiding any unnecessary surgery. The trigger option would be to get a PET scan. PET scan unfortunately, may not be very effective with subsolid nodules but in view of having the other findings indeed would help assess the metabolic activity of these nodular densities. The 4th option would be to watch and wait. However based on the fact that this nodular densities change in both in size and also in solid component would advise and not to wait. 03/08/2023 the patient is here for a pulmonary follow-up visit. 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 He required a lobectomy. He also had question on involvement in the periphery and was recommended to undergo chemotherapy. PDL1 activity was negligible. The patient opted on no chemotherapy at this time. He has been noticing worsening respiratory symptoms and also worsening cough for the last several days. He has been using his oxygen at 5 L pulse and then continues at home. Denies any fevers or chills. Does feel some chest heaviness. Will go and request a chest x-ray and also start him on prednisone and antibiotics. if the patient is no better he needs to call the office or go to the ER for further care. The patient is also having dysphagia. Family for some reason are resistant to a barium swallow. I will refer to speech pathology for an evaluation. 04/26/2023 the patient is here for pulmonary follow-up visit. He is feeling a little better. He is recovering slowly from his lobectomy but he is feeling better. His less short of breath. The patient has been using he oxygen intermittently. We did talk about the importance of exercise and pulmonary rehabilitation. I did encourage him to use the oxygen when he exercises in order to buildup exercise capacity and endurance. The patient did follow-up with Oncology. He is not interested in any chemotherapy at this time. Therefore will follow-up with him with a repeat CT scan. he continues having issues with swallow. At this point the patient is not interested in having any additional testing. 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 Pulmonary nodule T2DM (type 2 diabetes mellitus) Surgical History Status post removal of lung Family History Mother Anemia Stroke Father Dementia Social History Patient Tobacco Use Status: Former Tobacco user Tobacco use type: Cigarette Years Smoked: 20 years service: No Review of Systems Const Denies night sweats and Reports weight loss ENT Denies change in voice, Denies lip swelling, Denies mouth pain, Reports nasal congestion, Reports nasal discharge and Denies tongue swelling Card Reports dyspnea and Reports dyspnea on exertion Resp Denies chest congestion, Reports cough, Reports dyspnea, Reports dyspnea on exertion and Denies wheezing GI Denies abdominal pain Musc Denies no additional complaints Neuro Denies Neuro-related abnormal movements Psych Denies no additional complaints Roel/Lymph Denies easy bleeding and Denies lymphadenopathy Aller/Immun Denies lip swelling, Denies tongue swelling and Denies wheezing Physical Exam Vital Signs: Last Vital Signs Pulse 80 04/26/23 13:25 Pulse Ox 88 L 04/26/23 13:25 BMI result Body Mass Index 42.8 Const General: alert HEENT General nose exam: Abnormal external nose present and Nasal discharge present Eyes Pupils: Equal, round and reactive pupils present Neck Neck: Yes normal visual inspection, Yes full ROM and Yes no lymphadenopathy Chest Chest palpation & inspection: normal inspection of the chest Resp Auscultation: no wheezes and diminished lung sounds Cardio Rate: regular rate Rhythm: regular rhythm Heart sounds: S1 normal heart sound present and S2 normal heart sound present GI Palpation (GI): Soft to palpation and nontender Auscultation: normal bowel sounds General: Yes no CVA tenderness Back/Spine/Pelvis Back: no CVA tenderness Skin General skin exam: rashes and/or lesions noted Neuro Cranial nerves: Yes Equal, round and reactive pupils present Assessment & Plan Assessment & Plan (1) Asthma-COPD overlap syndrome: Code(s): J44.9 - Chronic obstructive pulmonary disease, unspecified (2) DUANE on CPAP: Code(s): G47.33 - Obstructive sleep apnea (adult) (pediatric); Z99.89 - Dependence on other enabling machines and devices (3) Dyspnea: Code(s): R06.00 - Dyspnea, unspecified Qualifiers: Dyspnea type: shortness of breath Qualified Code(s): R06.02 - Shortness of breath (4) Pneumoconiosis due to asbestos and other mineral fibers: Code(s): J61 - Pneumoconiosis due to asbestos and other mineral fibers (5) 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: Code(s): J92.0 - Pleural plaque with presence of asbestos (6) Pulmonary nodule: Code(s): R91.1 - Solitary pulmonary nodule (7) Adenocarcinoma of lung, stage 1: Code(s): C34.90 - Malignant neoplasm of unspecified part of unspecified bronchus or lung Plan Continue oxygen with activity and sleep Continue respiratory therapy: Advair MARICEL as needed Continue CPAP therapy, recent replacement early 2021 Continue neb therapy start on line pulmonary rehab start PPI CT chest 06/18 ( 6 months from his surgery) F/U 2-3 months Orders: Orders CT chest wo IV con 06/18/23 C34.90 - Malignant neoplasm of unspecified part of unspecified bronchus or lung Medications: New omeprazole 40 mg PO DAILY 30 caps 2RF Coding Level of Care Code Est Pt Level 4 (50573) Diagnoses Asthma-COPD overlap syndrome J44.9 DUANE on CPAP G47.33; Z99.89 Dyspnea R06.02 Dyspnea type: shortness of breath Pneumoconiosis due to asbestos and other mineral fibers J61 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
== END 2023-04-26 13:48 | disposition home or self-care (01) ==
PROVIDERS: PCP Internal Medicine Endocrinology, Diabetes & Metabolism; Visit Provider Hospitalist
DX: J44.9 Chronic obstructive pulmonary disease, unspecified (principal); G47.33 Obstructive sleep apnea (adult) (pediatric); Z99.89 Dependence on other enabling machines and devices; R06.02 Shortness of breath; J61 Pneumoconiosis due to asbestos and other mineral fibers; J92.0 Pleural plaque with presence of asbestos; R91.1 Solitary pulmonary nodule; C34.90 Malignant neoplasm of unspecified part of unspecified bronchus or lung
CPT/HCPCS: 99214

== ENCOUNTER → 2023-04-26 13:13 | Outpatient (BNVA) | payer MEDICARE, SELFPAY | PROVIDERS: PCP Internal Medicine Endocrinology, Diabetes & Metabolism; Visit Provider Hospitalist | DX: J44.9 Chronic obstructive pulmonary disease, unspecified (principal); G47.33 Obstructive sleep apnea (adult) (pediatric); R06.02 Shortness of breath; J61 Pneumoconiosis due to asbestos and other mineral fibers; C34.90 Malignant neoplasm of unspecified part of unspecified bronchus or lung; Z99.89 Dependence on other enabling machines and devices | CPT/HCPCS: 99212 ==

== ENCOUNTER 2023-06-01 12:59 | Outpatient (REF) | payer MEDICARE, SELFPAY ==
--- NOTE | ~2023-06-01 | CT_ITS ---
EXAMINATION: CT CHEST WITHOUT CONTRAST CLINICAL INFORMATION: History of lung cancer. COMPARISON: 01/09/2023 TECHNIQUE: Multidetector volumetric CT imaging of the chest was done. Axial MIP volume rendering provided. Sagittal and coronal reformatted images were obtained. This CT examination was performed using dose optimization techniques as appropriate, variously including the following: *Automated exposure control *Adjustment of mA and/or kV according to patient size (this includes techniques or standardized protocols for targeted exams where dose is matched to indication/reason for exam; i.e. extremities or head) *Use of iterative reconstruction technique DLP: 428 mGy-cm FINDINGS: LUNGS: Status post right upper lobectomy. No focal solid lesion. No suspicious pulmonary nodule. Central airways are patent. MEDIASTINUM: Surgical clips in the right neck soft tissues. No bulky axillary, hilar or mediastinal lymphadenopathy. There is shift of the mediastinal structures to the right. Great vessels are of normal caliber. Heart size is normal. No pericardial effusion. CORONARY ARTERY CALCIFICATION: Mild. PLEURA: Small right pleural effusion. Scattered pleural-based calcification. UPPER ABDOMEN: Small hiatal hernia. 1.4 cm left adrenal adenoma. OSSEOUS STRUCTURES: Sclerotic foci in the right sixth and seventh ribs. CT/CT chest wo IV con IMPRESSION: Status post right upper lobectomy. There are expected postsurgical changes with volume loss in the right hemithorax. No suspicious pulmonary nodule.
== END 2023-06-01 13:00 | disposition home or self-care (01) ==
LOC: HO.CT 12:59
PROVIDERS: PCP Internal Medicine Endocrinology, Diabetes & Metabolism; Visit Provider Hospitalist
DX: C34.90 Malignant neoplasm of unspecified part of unspecified bronchus or lung (principal)
CPT/HCPCS: 71250

== ENCOUNTER 2023-07-03 09:04 | Outpatient (REF) | payer MEDICARE, SELFPAY ==
[2023-07-03 10:21] LABS: MANUAL DIFF FLAG NO
[2023-07-03 10:24] LABS: Venous Blood Gas Refer to POC result
[2023-07-03 10:31] LABS: VBG Base Excess 4.7 mmol/L; VBG HCO3 30 mmol/L (22-26); VBG pCO2 46 mmHg; VBG pH 7.41 (7.32-7.43); VBG pO2 47 mmHg
[2023-07-03 11:34] LABS: Basophils Percent Auto 0.6 % (0-2); Eosinophils Absolute Auto 0.1 X10*3/uL (0.0-0.4); Eosinophils Percent Auto 0.9 % (0-4); Hematocrit 39.5 % (42.0-52.0); Hemoglobin 12.6 g/dl (14.0-18.0); Imm Gran Abs Auto 0.04 X10*3/uL (0.00-0.03); Imm Gran Pct Auto 0.6 % (0.0-0.4); Lymphocytes Absolute Auto 1.4 X10*3/uL (1.2-4.9); Mean Corpuscular HGB Conc 31.9 g/dl (31.0-36.0); Mean Corpuscular Hemoglobin 30.4 pg (27.0-33.0); Mean Corpuscular Volume 95.4 fL (80.0-98.0); Mean Platelet Volume 10.6 fL (9.4-12.4); Monocytes Absolute Auto 0.6 X10*3/uL (0.1-1.2); Monocytes Percent Auto 8.7 % (2-11); Neutrophils Absolute Auto 4.4 x10*3/uL (2.0-8.3); Neutrophils Percent Auto 68.2 % (45-73); Platelet Count 240 X10*3/uL (160-400); Red Blood Count 4.14 X10*6/uL (4.60-5.80); Red Cell Distribution Width 13.4 % (11.0-16.0); White Blood Count 6.5 X10*3/uL (4.8-10.8)
[2023-07-03 12:12] LABS: Anion Gap 13 (12-20); Blood Urea Nitrogen 43 mg/dL (9-16); Calcium 9.4 mg/dL (8.4-10.2); Carbon Dioxide 27 mmol/L (22-29); Chloride 106 mmol/L (96-108); Estimated Glomerular Filt Rate 39; Glucose Random 100 mg/dL (60-115); Potassium 4.6 mmol/L (3.3-5.1); Sodium 141 mmol/L (135-145)
[2023-07-03 12:18] LABS: Erythrocyte Sedimentation Rate 36 MM/HR (0-15)
== END 2023-07-03 09:05 | disposition home or self-care (01) ==
LOC: HO.LAB 09:04
PROVIDERS: PCP Internal Medicine Endocrinology, Diabetes & Metabolism; Visit Provider Hospitalist
DX: J44.9 Chronic obstructive pulmonary disease, unspecified (principal); J40 Bronchitis, not specified as acute or chronic; C34.90 Malignant neoplasm of unspecified part of unspecified bronchus or lung; G47.33 Obstructive sleep apnea (adult) (pediatric); R06.02 Shortness of breath; J92.0 Pleural plaque with presence of asbestos; Z99.89 Dependence on other enabling machines and devices; Z79.899 Other long term (current) drug therapy
CPT/HCPCS: 36415; 80048; 82803; 85025; 85652; 99212

== ENCOUNTER 2023-07-03 09:04 | Outpatient (AMB) | payer MEDICARE, SELFPAY ==
[2023-07-03 09:08] VITALS: BP 130/72; RESP 12; O2SAT 93; BMI 44.1
--- NOTE | 2023-07-03 09:08 | MHC.OFFVIS ---
Intake Vital Signs 07/03/23 09:08 Height 5 ft 9 in Weight 299 lb BMI 44.1 BP 130/72 Blood Pressure Location Rt brachial Position Sitting Respiration 12 Pulse Source Pulse Oximeter Pulse Oximetry (%) 93 Oxygen Delivery Method Room Air Intake Visit Reasons: copd Allergies oxycodone [Percocet] Allergy (Severe, Verified 07/03/23 09:08) Difficulty Swallowing Medication List - Last Reconciled 07/03/23 by Yvette Avalos LPN albuterol sulfate 0.63 mg inhalation Q4-6H PRN brimonidine 0.2% 0.2 drps ophthalmic (eye) DAILY CPAP (CPAP Machine/Device) As directed enalapril maleate 20 mg PO DAILY fenofibrate 160 mg PO DAILY finasteride 5 mg PO DAILY furosemide 40 mg PO DAILY gabapentin 600 mg PO DAILY glipizide-metformin 5-500 mg 1 tab PO DAILY hydrochlorothiazide 50 mg PO DAILY latanoprost 0.005% 0.005 drps ophthalmic (eye) DAILY levalbuterol HCl 1.25 mg (3 mL) inhalation BID 30 days levalbuterol tartrate 45 mcg/actuation (Xopenex HFA) 2 puffs inhalation Q6H PRN 30 days levothyroxine 200 mcg PO DAILY metoprolol succinate ER 50 mg PO DAILY montelukast 10 mg PO QPM nebulizers As directed omeprazole 40 mg PO DAILY Oxygen Home Use As directed pioglitazone 30 mg PO DAILY potassium chloride ER 20 mEq PO DAILY pravastatin 40 mg PO DAILY tamsulosin 0.4 mg PO DAILY tramadol 50 mg PO BID HPI HPI Comments History of Present Illness Details The patient is a 82-year-old gentleman known asthma COPD overlap syndrome in addition to chronic cough and DUANE on CPAP. Overall he is doing better on the budesonide and albuterol. He hasn't had to use yet Peter all on a regular basis. However, now that he has been using he started having significant shakes and tremors. There pretty moderate severity. Usually when they happen his knee down because he he is concerned is going to fall. His symptoms may last for several hours. He is wondering if he can do something about it. He has a lot of albuterol left over. We talked about switching over to Xopenex or given him a lower dose concentration albuterol. In the meantime he can try doing less time on the nebulizer with the albuterol to do a half a treatment and see if this is enough to be beneficial without as many side effects. He has been coughing. The cough is a lot better. Nonproductive in nature. We talked about doing an x-ray. He will do it during the next time. Otherwise he has had some lower extremity edema. 06/12/2022 the patient is here for a pulmonary follow-up visit. He continues to do well. He is responding well to his respiratory therapy. He was also using his oxygen continuously. He has a portable oxygen concentrator that he uses when he leaves the home. He does use the oxygen with his CPAP at nighttime. He did get the new CPAP in appears to be working well. The CPAP therapy has been affecting beneficial. He does use it for more than 4 hours a night. We did review his last CT scan of the chest that was done back in November 2021. He appears to have some nodular densities some of them appear to be subsolid in nature specially the 1 in the right upper lobe. therefore, this nodule appears to be more concerning and will need close follow-up. Therefore will plan to repeat the CT scan prior to his next appointment in the spring. If the patient has any worsening symptoms prior to that he is to call the office for an earlier evaluation. 12/05/2022 the patient is here for a pulmonary follow-up visit. Overall he is doing better from a respiratory status. He has had significant amount of weight loss that has been intentional. This has helped his breathing and also other comorbidities. He continues uses respiratory therapy as prescribed. He is also using the CPAP. The CPAP therapy continues to be affecting beneficial. He does use with oxygen. He does use it for more than 4 hours a night. He did undergo a recent CT scan of the chest and here for follow-up. We did review the findings. It appears that the right upper lobe pulmonary nodule which is subsolid in nature has become slightly larger. The fact that is becoming solidified is concerning for a malignant transformation. It is also mentioned about the axillary density which appears to be larger as well. Based on the findings I did talk to the patient about the different options. One option would be to refer him to thoracic surgery to see about potential resection of the pulmonary nodule. The patient already has evidence of chronic respiratory failure but if this is malignant surgery will have curative intent if there is no other disease elsewhere. Another option be to try to attempt a CT-guided biopsy. This will be helpful to get a better understanding of this changing nodular density specially in view of his respiratory failure and avoiding any unnecessary surgery. The trigger option would be to get a PET scan. PET scan unfortunately, may not be very effective with subsolid nodules but in view of having the other findings indeed would help assess the metabolic activity of these nodular densities. The 4th option would be to watch and wait. However based on the fact that this nodular densities change in both in size and also in solid component would advise and not to wait. 03/08/2023 the patient is here for a pulmonary follow-up visit. 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 He required a lobectomy. He also had question on involvement in the periphery and was recommended to undergo chemotherapy. PDL1 activity was negligible. The patient opted on no chemotherapy at this time. He has been noticing worsening respiratory symptoms and also worsening cough for the last several days. He has been using his oxygen at 5 L pulse and then continues at home. Denies any fevers or chills. Does feel some chest heaviness. Will go and request a chest x-ray and also start him on prednisone and antibiotics. if the patient is no better he needs to call the office or go to the ER for further care. The patient is also having dysphagia. Family for some reason are resistant to a barium swallow. I will refer to speech pathology for an evaluation. 04/26/2023 the patient is here for pulmonary follow-up visit. He is feeling a little better. He is recovering slowly from his lobectomy but he is feeling better. His less short of breath. The patient has been using he oxygen intermittently. We did talk about the importance of exercise and pulmonary rehabilitation. I did encourage him to use the oxygen when he exercises in order to buildup exercise capacity and endurance. The patient did follow-up with Oncology. He is not interested in any chemotherapy at this time. Therefore will follow-up with him with a repeat CT scan. he continues having issues with swallow. At this point the patient is not interested in having any additional testing. 07/03/2023 the patient is here for a pulmonary follow-up visit. The patient overall has been feeling well. He has recovered well from his surgery. Recently had a repeat CT scan of the chest that was personally by me demonstrating no evidence of any recurrence of the cancer no new nodules and normal postoperative changes. He continues on his respiratory therapy. He also has the oxygen with activity that has been affecting beneficial. Otherwise the patient is doing well will plan to follow-up in 6 months after his next CT scan. He does comment that sometimes when he is very tired he hyperventilates. His family is concerned. Will have him undergo blood work including a blood gas to make sure that there isn't any significant hypercarbia. I believe he probably has some degree of obesity hypoventilation syndrome. 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 DUANE on CPAP Asthma-COPD overlap syndrome Surgical History Status post removal of lung Family History Mother Anemia Stroke Father Dementia Social History Patient Tobacco Use Status: Former Tobacco user Tobacco use type: Cigarette Years Smoked: 20 years service: No Review of Systems Const Denies night sweats and Reports weight gain ENT Denies change in voice, Denies lip swelling, Denies mouth pain, Reports nasal congestion, Reports nasal discharge and Denies tongue swelling Card Reports dyspnea and Reports dyspnea on exertion Resp Denies chest congestion, Reports cough, Reports dyspnea, Reports dyspnea on exertion and Denies wheezing GI Denies abdominal pain Musc Denies no additional complaints Neuro Denies Neuro-related abnormal movements Psych Denies no additional complaints Roel/Lymph Denies easy bleeding and Denies lymphadenopathy Aller/Immun Denies lip swelling, Denies tongue swelling and Denies wheezing Physical Exam Vital Signs: Last Vital Signs Resp 12 07/03/23 09:08 BP 130/72 07/03/23 09:08 Pulse Ox 93 07/03/23 09:08 Oxygen Delivery Method Room Air 07/03/23 09:08 BMI result Body Mass Index 44.1 Const General: alert HEENT General nose exam: Abnormal external nose present and Nasal discharge present Eyes Pupils: Equal, round and reactive pupils present Neck Neck: Yes normal visual inspection, Yes full ROM and Yes no lymphadenopathy Chest Chest palpation & inspection: normal inspection of the chest Resp Auscultation: no wheezes and diminished lung sounds Cardio Rate: regular rate Rhythm: regular rhythm Heart sounds: S1 normal heart sound present and S2 normal heart sound present GI Palpation (GI): Soft to palpation and nontender Auscultation: normal bowel sounds General: Yes no CVA tenderness Back/Spine/Pelvis Back: no CVA tenderness Skin General skin exam: rashes and/or lesions noted Neuro Cranial nerves: Yes Equal, round and reactive pupils present Assessment & Plan Assessment & Plan (1) Asthma-COPD overlap syndrome: Code(s): J44.9 - Chronic obstructive pulmonary disease, unspecified (2) DUANE on CPAP: Code(s): G47.33 - Obstructive sleep apnea (adult) (pediatric); Z99.89 - Dependence on other enabling machines and devices (3) Dyspnea: Code(s): R06.00 - Dyspnea, unspecified Qualifiers: Dyspnea type: shortness of breath Qualified Code(s): R06.02 - Shortness of breath (4) Pneumoconiosis due to asbestos and other mineral fibers: Code(s): J61 - Pneumoconiosis due to asbestos and other mineral fibers (5) 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: Code(s): J92.0 - Pleural plaque with presence of asbestos (6) Adenocarcinoma of lung, stage 1: Comment: s/p resection Code(s): C34.90 - Malignant neoplasm of unspecified part of unspecified bronchus or lung Qualifiers: Laterality: unspecified laterality Qualified Code(s): C34.90 - Malignant neoplasm of unspecified part of unspecified bronchus or lung Plan Continue oxygen with activity and sleep Continue respiratory therapy: Advair MARICEL as needed Continue CPAP therapy, recent replacement early 2021 Continue neb therapy continue PPI Bloodwork/blood gas CT chest every 6 months F/U 6 months Orders: Orders Venous Blood Gas Today J44.9 - Chronic obstructive pulmonary disease, unspecified Complete Blood Count Auto Diff Today J44.9 - Chronic obstructive pulmonary disease, unspecified Basic Metabolic Panel Today J44.9 - Chronic obstructive pulmonary disease, unspecified Erythrocyte Sedimentation Rate Today J44.9 - Chronic obstructive pulmonary disease, unspecified Coding Level of Care Code Est Pt Level 4 (61770) Diagnoses Asthma-COPD overlap syndrome J44.9 DUANE on CPAP G47.33; Z99.89 Shortness of breath R06.02 Dyspnea type: shortness of breath Pneumoconiosis due to asbestos and other mineral fibers J61 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
== END 2023-07-03 09:35 | disposition home or self-care (01) ==
PROVIDERS: PCP Internal Medicine Endocrinology, Diabetes & Metabolism; Visit Provider Hospitalist
DX: J44.9 Chronic obstructive pulmonary disease, unspecified (principal); G47.33 Obstructive sleep apnea (adult) (pediatric); Z99.89 Dependence on other enabling machines and devices; R06.02 Shortness of breath; J61 Pneumoconiosis due to asbestos and other mineral fibers; J92.0 Pleural plaque with presence of asbestos; C34.90 Malignant neoplasm of unspecified part of unspecified bronchus or lung
CPT/HCPCS: 99214

== ENCOUNTER 2023-08-24 10:28 | Outpatient (AMB) | payer MEDICARE, SELFPAY ==
[2023-08-24 10:34] VITALS: PULSE 61; O2SAT 94; BMI 43.7
--- NOTE | 2023-08-24 10:34 | A.OFFVIS_ITS ---
Intake Vital Signs 08/24/23 10:34 Height 5 ft 9 in Weight 296 lb BMI 43.7 Pulse 61 Pulse Source Pulse Oximeter Pulse Oximetry (%) 94 Oxygen Delivery Method Room Air Intake Visit Reasons: COPD Diabetes Educator Required: No Allergies oxycodone [Percocet] Allergy (Severe, Verified 08/24/23 10:36) Difficulty Swallowing HPI HPI Comments History of Present Illness Details The patient is a 82-year-old gentleman known asthma COPD overlap syndrome in addition to chronic cough and DUANE on CPAP. Overall he is doing better on the budesonide and albuterol. He hasn't had to use yet Peter all on a regular basis. However, now that he has been using he started having significant shakes and tremors. There pretty moderate severity. Usually when they happen his knee down because he he is concerned is going to fall. His symptoms may last for several hours. He is wondering if he can do something about it. He has a lot of albuterol left over. We talked about switching over to Xopenex or given him a lower dose concentration albuterol. In the meantime he can try doing less time on the nebulizer with the albuterol to do a half a treatment and see if this is enough to be beneficial without as many side effects. He has been coughing. The cough is a lot better. Nonproductive in nature. We talked about doing an x-ray. He will do it during the next time. Otherwise he has had some lower extremity edema. 06/12/2022 the patient is here for a pulmonary follow-up visit. He continues to do well. He is responding well to his respiratory therapy. He was also using his oxygen continuously. He has a portable oxygen concentrator that he uses when he leaves the home. He does use the oxygen with his CPAP at nighttime. He did get the new CPAP in appears to be working well. The CPAP therapy has been affecting beneficial. He does use it for more than 4 hours a night. We did review his last CT scan of the chest that was done back in November 2021. He appears to have some nodular densities some of them appear to be subsolid in nature specially the 1 in the right upper lobe. therefore, this nodule appears to be more concerning and will need close follow-up. Therefore will plan to repeat the CT scan prior to his next appointment in the spring. If the patient has any worsening symptoms prior to that he is to call the office for an earlier evaluation. 12/05/2022 the patient is here for a pulm onary follow-up visit. Overall he is doing better from a respiratory status. He has had significant amount of weight loss that has been intentional. This has helped his breathing and also other comorbidities. He continues uses respiratory therapy as prescribed. He is also using the CPAP. The CPAP therapy continues to be affecting beneficial. He does use with oxygen. He does use it for more than 4 hours a night. He did undergo a recent CT scan of the chest and here for follow-up. We did review the findings. It appears that the right upper lobe pulmonary nodule which is subsolid in nature has become slightly larger. The fact that is becoming solidified is concerning for a malignant transformation. It is also mentioned about the axillary density which appears to be larger as well. Based on the findings I did talk to the patient about the different options. One option would be to refer him to thoracic surgery to see about potential resection of the pulmonary nodule. The patient already has evidence of chronic respiratory failure but if this is malignant surgery will have curative intent if there is no other disease elsewhere. Another option be to try to attempt a CT-guided biopsy. This will be helpful to get a better understanding of this changing nodular density specially in view of his respiratory failure and avoiding any unnecessary surgery. The trigger option would be to get a PET scan. PET scan unfortunately, may not be very effective with subsolid nodules but in view of having the other findings indeed would help assess the metabolic activity of these nodular densities. The 4th option would be to watch and wait. However based on the fact that this nodular densities change in both in size and also in solid component would advise and not to wait. 03/08/2023 the patient is here for a pulm onary follow-up visit. 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 He required a lobectomy. He also had question on involvement in the periphery and was recommended to undergo chemotherapy. PDL1 activity was negligible. The patient opted on no chemotherapy at this time. He has been noticing worsening respiratory symptoms and also worsening cough for the last several days. He has been using his oxygen at 5 L pulse and then continues at home. Denies any fevers or chills. Does feel some chest heaviness. Will go and request a chest x-ray and also start him on prednisone and antibiotics. if the patient is no better he needs to call the office or go to the ER for further care. The patient is also having dysphagia. Family for some reason are resistant to a barium swallow. I will refer to speech pathology for an evaluation. 04/26/2023 the patient is here for pulmon aubrey follow-up visit. He is feeling a little better. He is recovering slowly from his lobectomy but he is feeling better. His less short of breath. The patient has been using he oxygen intermittently. We did talk about the importance of exercise and pulmonary rehabilitation. I did encourage him to use the oxygen when he exercises in order to buildup exercise capacity and endurance. The patient did follow-up with Oncology. He is not interested in any chemotherapy at this time. Therefore will follow-up with him with a repeat CT scan. he continues having issues with swallow. At this point the patient is not interested in having any additional testing. 07/03/2023 the patient is here for a pul onary follow-up visit. The patient overall has been feeling well. He has recovered well from his surgery. Recently had a repeat CT scan of the chest that was personally by me martinez aguilar no evidence of any recurrence of the cancer no new nodules and normal postoperative changes. He continues on his respiratory therapy. He also has the oxygen with activity that has been affecting beneficial. Otherwise the patient is doing well will plan to follow-up in 6 months after his next [address] scan. He does comment that sometimes when he is very tired he hyperventilates. His family is concerned. Will have him undergo blood work including a blood gas to make sure that there isn't any significant hypercarbia. I believe he probably has some degree of obesity hypoventilation syndrome. 08/24/2023 [facility] Has been breathing better. Has not requiered the oxygen as often. Recently had an injury to his Leg lower extremity and went to the ER. In the ER he had an xray with lesions ?metastatic disease. His PCP did referred him to oncology. Based on his last CT chest 09/18, no evidence of reoccurance. His has been using his respiratory therapy. 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 DUANE on CPAP Asthma-COPD overlap syndrome Surgical History Status post removal of lung Family History Mother Anemia Stroke Father Dementia Social History Patient Tobacco Use Status: Former Tobacco user Tobacco use type: Cigarette Years Smoked: 20 years service: No Review of Systems Const Denies night sweats and Reports weight gain ENT Denies change in voice, Denies lip swelling, Denies mouth pain, Reports nasal congestion, Reports nasal discharge and Denies tongue swelling Card Reports dyspnea and Reports dyspnea on exertion Resp Denies chest congestion, Reports cough, Reports dyspnea, Reports dyspnea on exertion and Denies wheezing GI Denies abdominal pain Musc Denies no additional complaints Skin/Breast Reports wounds (LLE wound) Neuro Denies Neuro-related abnormal movements Psych Denies no additional complaints Roel/Lymph Denies easy bleeding and Denies lymphadenopathy Aller/Immun Denies lip swelling, Denies tongue swelling and Denies wheezing Physical Exam Vital Signs: Last Vital Signs Pulse 61 08/24/23 10:34 Pulse Ox 94 08/24/23 10:34 Oxygen Delivery Method Room Air 08/24/23 10:34 BMI result Body Mass Index 43.7 Const General: alert HEENT General nose exam: Abnormal external nose present and Nasal discharge present Eyes Pupils: Equal, round and reactive pupils present Neck Neck: Yes normal visual inspection, Yes full ROM and Yes no lymphadenopathy Chest Chest palpation & inspection: normal inspection of the chest Resp Auscultation: no wheezes and diminished lung sounds Cardio Rate: regular rate Rhythm: regular rhythm Heart sounds: S1 normal heart sound present and S2 normal heart sound present GI Palpation (GI): Soft to palpation and nontender Auscultation: normal bowel sounds General: Yes no CVA tenderness Back/Spine/Pelvis Back: no CVA tenderness Skin General skin exam: rashes and/or lesions noted Neuro Cranial nerves: Yes Equal, round and reactive pupils present Assessment & Plan Assessment & Plan (1) Asthma-COPD overlap syndrome: Code(s): J44.9 - Chronic obstructive pulmonary disease, unspecified (2) DUANE on CPAP: Code(s): G47.33 - Obstructive sleep apnea (adult) (pediatric); Z99.89 - Dependence on other enabling machines and devices (3) Dyspnea: Code(s): R06.00 - Dyspnea, unspecified Qualifiers: Dyspnea type: shortness of breath Qualified Code(s): R06.02 - Shortness of breath (4) Pneumoconiosis due to asbestos and other mineral fibers: Code(s): J61 - Pneumoconiosis due to asbestos and other mineral fibers (5) 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 ? metastatic disease referral to wound clinic Continue oxygen with activity and sleep Continue respiratory therapy: Advair MARICEL as needed Continue CPAP therapy, (Replacement early 2021) Continue neb therapy continue PPI CT chest every 6 months per protocol F/U 2 months Orders: Referrals Wound Care Referral [id number] - Laceration without foreign body, left lower leg, initial encounter Coding Level of Care Code New Pt Level 4 (57722) Diagnoses Asthma-COPD overlap syndrome J44.9 DUANE on CPAP G47.33; Z99.89 Shortness of breath R06.02 Dyspnea type: shortness of breath Pneumoconiosis due to asbestos and other mineral fibers J61 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
== END 2023-08-24 11:04 | disposition home or self-care (01) ==
PROVIDERS: PCP Internal Medicine Endocrinology, Diabetes & Metabolism; Visit Provider Hospitalist
DX: J44.9 Chronic obstructive pulmonary disease, unspecified (principal); G47.33 Obstructive sleep apnea (adult) (pediatric); Z99.89 Dependence on other enabling machines and devices; J61 Pneumoconiosis due to asbestos and other mineral fibers; J92.0 Pleural plaque with presence of asbestos; C34.11 Malignant neoplasm of upper lobe, right bronchus or lung
CPT/HCPCS: 99214

== ENCOUNTER → 2023-08-24 10:28 | Outpatient (BNVA) | payer MEDICARE, SELFPAY | PROVIDERS: PCP Internal Medicine Endocrinology, Diabetes & Metabolism; Visit Provider Hospitalist | DX: J44.9 Chronic obstructive pulmonary disease, unspecified (principal); J92.0 Pleural plaque with presence of asbestos; R06.02 Shortness of breath; C34.90 Malignant neoplasm of unspecified part of unspecified bronchus or lung; G47.33 Obstructive sleep apnea (adult) (pediatric); Z99.89 Dependence on other enabling machines and devices | CPT/HCPCS: 99212 ==

== ENCOUNTER 2023-10-24 09:34 | Outpatient (AMB) | payer MEDICARE, SELFPAY ==
[2023-10-24 09:55] VITALS: PULSE 65; O2SAT 94; BMI 44.3
--- NOTE | 2023-10-24 09:55 | MHC.OFFVIS ---
Intake Vital Signs 10/24/23 09:55 Height 5 ft 9 in Weight 300 lb BMI 44.3 Pulse 65 Pulse Source Pulse Oximeter Pulse Oximetry (%) 94 Oxygen Delivery Method Room Air Intake Visit Reasons: COPD Care Management Assistant Required: No Allergies oxycodone [Percocet] Allergy (Severe, Verified 10/24/23 09:58) Difficulty Swallowing HPI HPI Comments History of Present Illness Details The patient is a 82-year-old gentleman known asthma COPD overlap syndrome in addition to chronic cough and DUANE on CPAP. Overall he is doing better on the budesonide and albuterol. He hasn't had to use yet Peter all on a regular basis. However, now that he has been using he started having significant shakes and tremors. There pretty moderate severity. Usually when they happen his knee down because he he is concerned is going to fall. His symptoms may last for several hours. He is wondering if he can do something about it. He has a lot of albuterol left over. We talked about switching over to Xopenex or given him a lower dose concentration albuterol. In the meantime he can try doing less time on the nebulizer with the albuterol to do a half a treatment and see if this is enough to be beneficial without as many side effects. He has been coughing. The cough is a lot better. Nonproductive in nature. We talked about doing an x-ray. He will do it during the next time. Otherwise he has had some lower extremity edema. 06/12/2022 the patient is here for a pulmonary follow-up visit. He continues to do well. He is responding well to his respiratory therapy. He was also using his oxygen continuously. He has a portable oxygen concentrator that he uses when he leaves the home. He does use the oxygen with his CPAP at nighttime. He did get the new CPAP in appears to be working well. The CPAP therapy has been affecting beneficial. He does use it for more than 4 hours a night. We did review his last CT scan of the chest that was done back in November 2021. He appears to have some nodular densities some of them appear to be subsolid in nature specially the 1 in the right upper lobe. therefore, this nodule appears to be more concerning and will need close follow-up. Therefore will plan to repeat the CT scan prior to his next appointment in the spring. If the patient has any worsening symptoms prior to that he is to call the office for an earlier evaluation. 12/05/2022 the patient is here for a pulmonary follow-up visit. Overall he is doing better from a respiratory status. He has had significant amount of weight loss that has been intentional. This has helped his breathing and also other comorbidities. He continues uses respiratory therapy as prescribed. He is also using the CPAP. The CPAP therapy continues to be affecting beneficial. He does use with oxygen. He does use it for more than 4 hours a night. He did undergo a recent CT scan of the chest and here for follow-up. We did review the findings. It appears that the right upper lobe pulmonary nodule which is subsolid in nature has become slightly larger. The fact that is becoming solidified is concerning for a malignant transformation. It is also mentioned about the axillary density which appears to be larger as well. Based on the findings I did talk to the patient about the different options. One option would be to refer him to thoracic surgery to see about potential resection of the pulmonary nodule. The patient already has evidence of chronic respiratory failure but if this is malignant surgery will have curative intent if there is no other disease elsewhere. Another option be to try to attempt a CT-guided biopsy. This will be helpful to get a better understanding of this changing nodular density specially in view of his respiratory failure and avoiding any unnecessary surgery. The trigger option would be to get a PET scan. PET scan unfortunately, may not be very effective with subsolid nodules but in view of having the other findings indeed would help assess the metabolic activity of these nodular densities. The 4th option would be to watch and wait. However based on the fact that this nodular densities change in both in size and also in solid component would advise and not to wait. 03/08/2023 the patient is here for a pulmonary follow-up visit. 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 He required a lobectomy. He also had question on involvement in the periphery and was recommended to undergo chemotherapy. PDL1 activity was negligible. The patient opted on no chemotherapy at this time. He has been noticing worsening respiratory symptoms and also worsening cough for the last several days. He has been using his oxygen at 5 L pulse and then continues at home. Denies any fevers or chills. Does feel some chest heaviness. Will go and request a chest x-ray and also start him on prednisone and antibiotics. if the patient is no better he needs to call the office or go to the ER for further care. The patient is also having dysphagia. Family for some reason are resistant to a barium swallow. I will refer to speech pathology for an evaluation. 04/26/2023 the patient is here for pulmonary follow-up visit. He is feeling a little better. He is recovering slowly from his lobectomy but he is feeling better. His less short of breath. The patient has been using he oxygen intermittently. We did talk about the importance of exercise and pulmonary rehabilitation. I did encourage him to use the oxygen when he exercises in order to buildup exercise capacity and endurance. The patient did follow-up with Oncology. He is not interested in any chemotherapy at this time. Therefore will follow-up with him with a repeat CT scan. he continues having issues with swallow. At this point the patient is not interested in having any additional testing. 07/03/2023 the patient is here for a pulmonary follow-up visit. The patient overall has been feeling well. He has recovered well from his surgery. Recently had a repeat CT scan of the chest that was personally by me demonstrating no evidence of any recurrence of the cancer no new nodules and normal postoperative changes. He continues on his respiratory therapy. He also has the oxygen with activity that has been affecting beneficial. Otherwise the patient is doing well will plan to follow-up in 6 months after his next CT scan. He does comment that sometimes when he is very tired he hyperventilates. His family is concerned. Will have him undergo blood work including a blood gas to make sure that there isn't any significant hypercarbia. I believe he probably has some degree of obesity hypoventilation syndrome. 08/24/2023 The patient is here for a pulmonary follow up visit. Has been breathing better. Has not requiered the oxygen as often. Recently had an injury to his Leg lower extremity and went to the ER. In the ER he had an xray with lesions ?metastatic disease. His PCP did referred him to oncology. Based on his last CT chest 09/18, no evidence of reoccurance. His has been using his respiratory therapy. 10/24/2023 patient is here for pulmonary follow-up visit. The patient has for the most of her status is still dealing the issue the chest x-ray. He did follow-up with meals and the patient did have a bone scan done. No evidence of any uptake on the bone scan of the lower extremities which is reassuring. Although there was some nonspecific uptake around left-sided ribs. It is not clear if it is related to trauma from the chest tube for his symptoms other abnormality. Differential did include neoplastic disease. His last CT scan of the chest was back in May 2023 demonstrating no evidence of any recurrence. Going to go ahead and repeat the CT scan now. In the meantime has an appointment [facility] to further address the findings. Breathing sy patient is doing well. He continues to in his weight. He continues uses respiratory inhalers. Also uses a CPAP at nighttime. The CPAP therapy continues to be affecting beneficial. He does try to use it more than 4 hours a night. 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 DUANE on CPAP Asthma-COPD overlap syndrome Surgical History Status post removal of lung Family History Mother Anemia Stroke Father Dementia Social History Patient Tobacco Use Status: Former Tobacco user Tobacco use type: Cigarette Years Smoked: 20 years service: No Review of Systems Const Denies night sweats and Reports weight gain ENT Denies change in voice, Denies lip swelling, Denies mouth pain, Reports nasal congestion, Reports nasal discharge and Denies tongue swelling Card Reports dyspnea and Reports dyspnea on exertion Resp Denies chest congestion, Reports cough, Reports dyspnea, Reports dyspnea on exertion and Denies wheezing GI Denies abdominal pain Musc Denies no additional complaints Skin/Breast Reports wounds (LLE wound) Neuro Denies Neuro-related abnormal movements Psych Denies no additional complaints Roel/Lymph Denies easy bleeding and Denies lymphadenopathy Aller/Immun Denies lip swelling, Denies tongue swelling and Denies wheezing Physical Exam Vital Signs: Last Vital Signs Pulse 65 10/24/23 09:55 Pulse Ox 94 10/24/23 09:55 Oxygen Delivery Method Room Air 10/24/23 09:55 BMI result Body Mass Index 44.3 Const General: alert HEENT General nose exam: Abnormal external nose present and Nasal discharge present Eyes Pupils: Equal, round and reactive pupils present Neck Neck: Yes normal visual inspection, Yes full ROM and Yes no lymphadenopathy Chest Chest palpation & inspection: normal inspection of the chest Resp Auscultation: no wheezes and diminished lung sounds Cardio Rate: regular rate Rhythm: regular rhythm Heart sounds: S1 normal heart sound present and S2 normal heart sound present GI Palpation (GI): Soft to palpation and nontender Auscultation: normal bowel sounds General: Yes no CVA tenderness Back/Spine/Pelvis Back: no CVA tenderness Skin General skin exam: rashes and/or lesions noted Neuro Cranial nerves: Yes Equal, round and reactive pupils present Assessment & Plan Assessment & Plan (1) Asthma-COPD overlap syndrome: Code(s): J44.9 - Chronic obstructive pulmonary disease, unspecified (2) DUANE on CPAP: Code(s): G47.33 - Obstructive sleep apnea (adult) (pediatric); Z99.89 - Dependence on other enabling machines and devices (3) Dyspnea: Code(s): R06.00 - Dyspnea, unspecified Qualifiers: Dyspnea type: shortness of breath Qualified Code(s): R06.02 - Shortness of breath (4) Pneumoconiosis due to asbestos and other mineral fibers: Code(s): J61 - Pneumoconiosis due to asbestos and other mineral fibers (5) 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: Code(s): J92.0 - Pleural plaque with presence of asbestos (6) Adenocarcinoma of lung, stage 1: Comment: s/p resection Code(s): C34.90 - Malignant neoplasm of unspecified part of unspecified bronchus or lung Qualifiers: Laterality: unspecified laterality Qualified Code(s): C34.90 - Malignant neoplasm of unspecified part of unspecified bronchus or lung Plan Continue oxygen with activity and sleep Continue respiratory therapy: Advair MARICEL as needed Continue CPAP therapy, (Replacement early 2021) Continue neb therapy CT chest now to f/u abnormal bone scan with uptake around the left sided ribs F/U 2-3 months Orders: Orders CT chest wo IV con Today C34.90 - Malignant neoplasm of unspecified part of unspecified bronchus or lung Coding Level of Care Code Est Pt Level 4 (27784) Diagnoses Asthma-COPD overlap syndrome J44.9 DUANE on CPAP G47.33; Z99.89 Shortness of breath R06.02 Dyspnea type: shortness of breath Pneumoconiosis due to asbestos and other mineral fibers J61 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
== END 2023-10-24 10:23 | disposition home or self-care (01) ==
PROVIDERS: PCP Internal Medicine Endocrinology, Diabetes & Metabolism; Visit Provider Hospitalist
DX: J44.9 Chronic obstructive pulmonary disease, unspecified (principal); G47.33 Obstructive sleep apnea (adult) (pediatric); Z99.89 Dependence on other enabling machines and devices; J61 Pneumoconiosis due to asbestos and other mineral fibers; J92.0 Pleural plaque with presence of asbestos; C34.90 Malignant neoplasm of unspecified part of unspecified bronchus or lung
CPT/HCPCS: 99214

== ENCOUNTER → 2023-10-24 09:34 | Outpatient (BNVA) | payer MEDICARE, SELFPAY | PROVIDERS: PCP Internal Medicine Endocrinology, Diabetes & Metabolism; Visit Provider Hospitalist | DX: J44.9 Chronic obstructive pulmonary disease, unspecified (principal); J61 Pneumoconiosis due to asbestos and other mineral fibers; J92.0 Pleural plaque with presence of asbestos; C34.90 Malignant neoplasm of unspecified part of unspecified bronchus or lung; G47.33 Obstructive sleep apnea (adult) (pediatric); R06.02 Shortness of breath; Z99.89 Dependence on other enabling machines and devices | CPT/HCPCS: 99212 ==

== ENCOUNTER 2023-11-20 09:13 | Outpatient (REF) | payer MEDICARE, SELFPAY ==
--- NOTE | ~2023-11-20 | CT_ITS ---
EXAMINATION: CT CHEST WITHOUT CONTRAST CLINICAL INFORMATION: Malignant neoplasm of bronchus. COMPARISON: 06/01/2023 TECHNIQUE: Multidetector volumetric CT imaging of the chest was done. Axial MIP volume rendering provided. Sagittal and coronal reformatted images were obtained. This CT examination was performed using dose optimization techniques as appropriate, variously including the following: *Automated exposure control *Adjustment of mA and/or kV according to patient size (this includes techniques or standardized protocols for targeted exams where dose is matched to indication/reason for exam; i.e. extremities or head) *Use of iterative reconstruction technique DLP: 423.00 mGy-cm FINDINGS: LUNGS AND PLEURA: Again seen are changes of right upper lobectomy with a suture line present. Some mild emphysematous changes are seen with a 3.1 centimeter cyst in the left lower lobe. Right-sided pleural thickening/subpleural fat/fluid is unchanged and not a worrisome finding. Scattered areas of unchanged calcified pleural plaque present bilaterally. MEDIASTINUM: No mediastinal or hilar lymphadenopathy seen. Heart size is normal. CORONARY ARTERY CALCIFICATION: Mild AXILLA: No lymphadenopathy. UPPER ABDOMEN: Hepatic steatosis is noted. Small 1.3 cm left adrenal fat density adenoma is unchanged. OSSEOUS STRUCTURES: Mild degenerative changes in the spine without bony destructive lesions. CT/CT chest wo IV con IMPRESSION: 1. Status post right upper lobectomy with no evidence of recurrent or metastatic disease. 2. Incidental note made of hepatic steatosis and left adrenal adenoma. Fleischner guidelines were followed.
== END 2023-11-20 09:14 | disposition home or self-care (01) ==
LOC: HO.CT 09:13
PROVIDERS: PCP Internal Medicine Endocrinology, Diabetes & Metabolism; Visit Provider Hospitalist
DX: C34.90 Malignant neoplasm of unspecified part of unspecified bronchus or lung (principal)
CPT/HCPCS: 71250

== ENCOUNTER 2024-03-05 09:54 | Outpatient (AMB) | payer MEDICARE, SELFPAY ==
[2024-03-05 10:05] VITALS: PULSE 65; O2SAT 94; BMI 41.3
--- NOTE | 2024-03-05 10:05 | MHC.OFFVIS ---
Vital Signs 03/05/24 10:05 Height 5 ft 9 in Weight 280 lb BMI 41.3 Pulse 65 Pulse Source Pulse Oximeter Pulse Oximetry (%) 94 Oxygen Delivery Method Room Air Intake Visit Reasons: COPD [employer] Required: No Allergies oxycodone [Percocet] Allergy (Severe, Verified 03/05/24 10:07) Difficulty Swallowing HPI Comments Details: The patient is a 83-year-old gentleman known asthma COPD overlap syndrome in addition to chronic cough and DUANE on CPAP. Overall he is doing better on the budesonide and albuterol. He hasn't had to use yet Peter all on a regular basis. However, now that he has been using he started having significant shakes and tremors. There pretty moderate severity. Usually when they happen his knee down because he he is concerned is going to fall. His symptoms may last for several hours. He is wondering if he can do something about it. He has a lot of albuterol left over. We talked about switching over to Xopenex or given him a lower dose concentration albuterol. In the meantime he can try doing less time on the nebulizer with the albuterol to do a half a treatment and see if this is enough to be beneficial without as many side effects. He has been coughing. The cough is a lot better. Nonproductive in nature. We talked about doing an x-ray. He will do it during the next time. Otherwise he has had some lower extremity edema. 06/12/2022 the patient is here for a pulmonary follow-up visit. He continues to do well. He is responding well to his respiratory therapy. He was also using his oxygen continuously. He has a portable oxygen concentrator that he uses when he leaves the home. He does use the oxygen with his CPAP at nighttime. He did get the new CPAP in appears to be working well. The CPAP therapy has been affecting beneficial. He does use it for more than 4 hours a night. We did review his last CT scan of the chest that was done back in November 2021. He appears to have some nodular densities some of them appear to be subsolid in nature specially the 1 in the right upper lobe. therefore, this nodule appears to be more concerning and will need close follow-up. Therefore will plan to repeat the CT scan prior to his next appointment in the spring. If the patient has any worsening symptoms prior to that he is to call the office for an earlier evaluation. 12/05/2022 the patient is here for a pulmonary follow-up visit. Overall he is doing better from a respiratory status. He has had significant amount of weight loss that has been intentional. This has helped his breathing and also other comorbidities. He continues uses respiratory therapy as prescribed. He is also using the CPAP. The CPAP therapy continues to be affecting beneficial. He does use with oxygen. He does use it for more than 4 hours a night. He did undergo a recent CT scan of the chest and here for follow-up. We did review the findings. It appears that the right upper lobe pulmonary nodule which is subsolid in nature has become slightly larger. The fact that is becoming solidified is concerning for a malignant transformation. It is also mentioned about the axillary density which appears to be larger as well. Based on the findings I did talk to the patient about the different options. One option would be to refer him to thoracic surgery to see about potential resection of the pulmonary nodule. The patient already has evidence of chronic respiratory failure but if this is malignant surgery will have curative intent if there is no other disease elsewhere. Another option be to try to attempt a CT-guided biopsy. This will be helpful to get a better understanding of this changing nodular density specially in view of his respiratory failure and avoiding any unnecessary surgery. The trigger option would be to get a PET scan. PET scan unfortunately, may not be very effective with subsolid nodules but in view of having the other findings indeed would help assess the metabolic activity of these nodular densities. The 4th option would be to watch and wait. However based on the fact that this nodular densities change in both in size and also in solid component would advise and not to wait. 03/08/2023 the patient is here for a pulmonary follow-up visit. 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 He required a lobectomy. He also had question on involvement in the periphery and was recommended to undergo chemotherapy. PDL1 activity was negligible. The patient opted on no chemotherapy at this time. He has been noticing worsening respiratory symptoms and also worsening cough for the last several days. He has been using his oxygen at 5 L pulse and then continues at home. Denies any fevers or chills. Does feel some chest heaviness. Will go and request a chest x-ray and also start him on prednisone and antibiotics. if the patient is no better he needs to call the office or go to the ER for further care. The patient is also having dysphagia. Family for some reason are resistant to a barium swallow. I will refer to speech pathology for an evaluation. 04/26/2023 the patient is here for pulmonary follow-up visit. He is feeling a little better. He is recovering slowly from his lobectomy but he is feeling better. His less short of breath. The patient has been using he oxygen intermittently. We did talk about the importance of exercise and pulmonary rehabilitation. I did encourage him to use the oxygen when he exercises in order to buildup exercise capacity and endurance. The patient did follow-up with Oncology. He is not interested in any chemotherapy at this time. Therefore will follow-up with him with a repeat CT scan. he continues having issues with swallow. At this point the patient is not interested in having any additional testing. 07/03/2023 the patient is here for a pulmonary follow-up visit. The patient overall has been feeling well. He has recovered well from his surgery. Recently had a repeat CT scan of the chest that was personally by me demonstrating no evidence of any recurrence of the cancer no new nodules and normal postoperative changes. He continues on his respiratory therapy. He also has the oxygen with activity that has been affecting beneficial. Otherwise the patient is doing well will plan to follow-up in 6 months after his next CT scan. He does comment that sometimes when he is very tired he hyperventilates. His family is concerned. Will have him undergo blood work including a blood gas to make sure that there isn't any significant hypercarbia. I believe he probably has some degree of obesity hypoventilation syndrome. 08/24/2023 The patient is here for a pulmonary follow up visit. Has been breathing better. Has not requiered the oxygen as often. Recently had an injury to his Leg lower extremity and went to the ER. In the ER he had an xray with lesions ?metastatic disease. His PCP did referred him to oncology. Based on his last CT chest 09/18, no evidence of reoccurance. His has been using his respiratory therapy. 10/24/2023 patient is here for pulmonary follow-up visit. The patient has for the most of her status is still dealing the issue the chest x-ray. He did follow-up with meals and the patient did have a bone scan done. No evidence of any uptake on the bone scan of the lower extremities which is reassuring. Although there was some nonspecific uptake around left-sided ribs. It is not clear if it is related to trauma from the chest tube for his symptoms other abnormality. Differential did include neoplastic disease. His last CT scan of the chest was back in May 2023 demonstrating no evidence of any recurrence. Going to go ahead and repeat the CT scan now. In the meantime has an appointment [place] to further address the findings. Breathing sy patient is doing well. He continues to in his weight. He continues uses respiratory inhalers. Also uses a CPAP at nighttime. The CPAP therapy continues to be affecting beneficial. He does try to use it more than 4 hours a night. 03/05/2024 the patient is here for pulmonary follow-up visit. Recently was hospitalized at [facility]. The patient apparently was in care of his sick . She had a bad UTI use very stress concerned about her health. He started developing worsening lower extremity edema weight gain. He started developing worsening shortness of breath which point they called the ambulance and took him to the hospital. Initially he had a CTA to rule out PE. Although it did result in some kidney injury. The patient did not have any evidence of any pulmonary emboli report and there was no evidence of any airspace disease or recurrence of the lung cancer. The patient however was found to be in significant heart failure. He was placed on diuretics. He diuresed significantly and felt a lot better. His breathing is overall better. Although his kidney function initially started getting better now worse again. Therefore they backed off on the diuretics at this time. Will continue to follow closely with his doctors. In the meantime he continues uses CPAP at nighttime. The CPAP therapy has been affecting beneficial. Not that he had a recent CT scan he will not have to get a CT scan until 6 months from now to follow up with his typical lung cancer protocol. Otherwise patient is without any complaints. Will continue with the current respiratory therapy will continue with diuresis as tolerated. 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 DUANE on CPAP Asthma-COPD overlap syndrome Surgical History Status post removal of lung Family History Mother Anemia Stroke Father Dementia Social History Patient Tobacco Use Status: Former Tobacco user Tobacco use type: Cigarette Years Smoked: 20 years service: No Review of Systems Const Denies night sweats and Reports weight gain ENT Denies change in voice, Denies lip swelling, Denies mouth pain, Reports nasal congestion, Reports nasal discharge and Denies tongue swelling Card Reports leg edema, Reports dyspnea and Reports dyspnea on exertion Resp Denies chest congestion, Reports cough, Reports dyspnea, Reports dyspnea on exertion and Denies wheezing GI Denies abdominal pain Musc Denies no additional complaints Skin/Breast Reports wounds (LLE wound) Neuro Denies Neuro-related abnormal movements Psych Denies no additional complaints Roel/Lymph Denies easy bleeding and Denies lymphadenopathy Aller/Immun Denies lip swelling, Denies tongue swelling and Denies wheezing Physical Exam Vital Signs: Last Vital Signs Pulse 65 03/05/24 10:05 Pulse Ox 94 03/05/24 10:05 Oxygen Delivery Method Room Air 03/05/24 10:05 BMI result Body Mass Index 41.3 Const General: alert HEENT General nose exam: Abnormal external nose present and Nasal discharge present Eyes Pupils: Equal, round and reactive pupils present Neck Neck: Yes normal visual inspection, Yes full ROM and Yes no lymphadenopathy Chest Chest palpation & inspection: normal inspection of the chest Resp Auscultation: no wheezes and diminished lung sounds Cardio Rate: regular rate Rhythm: regular rhythm Heart sounds: S1 normal heart sound present and S2 normal heart sound present GI Palpation (GI): Soft to palpation and nontender Auscultation: normal bowel sounds General: Yes no CVA tenderness Back/Spine/Pelvis Back: no CVA tenderness Skin General skin exam: rashes and/or lesions noted Neuro Cranial nerves: Yes Equal, round and reactive pupils present Assessment & Plan Assessment & Plan (1) Asthma-COPD overlap syndrome: Code(s): J44.9 - Chronic obstructive pulmonary disease, unspecified Category: Medical (2) DUANE on CPAP: Code(s): G47.33 - Obstructive sleep apnea (adult) (pediatric); Z99.89 - Dependence on other enabling machines and devices Category: Medical (3) Dyspnea: Code(s): R06.00 - Dyspnea, unspecified Category: Medical Qualifiers: Dyspnea type: shortness of breath Qualified Code(s): R06.02 - Shortness of breath (4) Pneumoconiosis due to asbestos and other mineral fibers: Code(s): J61 - Pneumoconiosis due to asbestos and other mineral fibers Category: Medical (5) 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: Code(s): J92.0 - Pleural plaque with presence of asbestos Category: Medical (6) Adenocarcinoma of lung, stage 1: Comment: s/p resection Code(s): C34.90 - Malignant neoplasm of unspecified part of unspecified bronchus or lung Category: Medical Qualifiers: Laterality: unspecified laterality Qualified Code(s): C34.90 - Malignant neoplasm of unspecified part of unspecified bronchus or lung (7) CHF (congestive heart failure): Code(s): I50.9 - Heart failure, unspecified Category: Medical Qualifiers: Heart failure type: diastolic Heart failure chronicity: chronic Qualified Code(s): I50.32 - Chronic diastolic (congestive) heart failure Plan Continue oxygen with activity and sleep Continue respiratory therapy: Advair MARICEL as needed Continue CPAP therapy, (Replacement early 2021) Continue neb therapy CT chest 6 months diuresis as tolerated F/U 6 months Orders: Orders CT chest wo IV con 6 Months C34.90 - Malignant neoplasm of unspecified part of unspecified bronchus or lung Coding Level of Care Code Est Pt Level 4 (29206) Diagnoses Asthma-COPD overlap syndrome J44.9 DUANE on CPAP G47.33; Z99.89 Shortness of breath R06.02 Dyspnea type: shortness of breath Pneumoconiosis due to asbestos and other mineral fibers J61 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
== END 2024-03-05 10:25 | disposition home or self-care (01) ==
PROVIDERS: PCP Internal Medicine Endocrinology, Diabetes & Metabolism; Visit Provider Hospitalist
DX: J44.9 Chronic obstructive pulmonary disease, unspecified (principal); G47.33 Obstructive sleep apnea (adult) (pediatric); Z99.89 Dependence on other enabling machines and devices; J61 Pneumoconiosis due to asbestos and other mineral fibers; J92.0 Pleural plaque with presence of asbestos; I50.32 Chronic diastolic (congestive) heart failure
CPT/HCPCS: 99214

== ENCOUNTER → 2024-03-05 09:54 | Outpatient (BNVA) | payer MEDICARE, SELFPAY | PROVIDERS: PCP Internal Medicine Endocrinology, Diabetes & Metabolism; Visit Provider Hospitalist | DX: J44.9 Chronic obstructive pulmonary disease, unspecified (principal); C34.90 Malignant neoplasm of unspecified part of unspecified bronchus or lung; J92.0 Pleural plaque with presence of asbestos; I50.32 Chronic diastolic (congestive) heart failure; G47.33 Obstructive sleep apnea (adult) (pediatric); Z99.89 Dependence on other enabling machines and devices | CPT/HCPCS: 99212 ==

== ENCOUNTER 2024-08-08 10:14 | Outpatient (AMB) | payer MEDICARE, SELFPAY ==
--- OUTSIDE RECORDS SUMMARY | 2024-08-08 10:17 | XMS_ITS | Continuity of Care Document ---
Author Organization [facility] [address] [facility] [address] [place] [address] Phone [phone] Care Team Providers Care Editorial Assistant Name Role Phone Rodolfo Mathews M.D. Care Team Information Re ceiver [phone] Problems Active Problems Provider Date Type 2 diabetes mellitus Rodolfo Mathews M.D. Onset: 05/09/2022 Essential hypertension Rodolfo Mathews M.D. O nset: 05/09/2022 Obstructive sleep apnea syndrome Rodolfo mckeon M.D. Onset: 05/09/2022 History of malignant neoplasm of thyroid Rodolfo mccall M.D. Onset: 08/14/2022 Hyperlipidemia Rodolfo Mathews M.D. Onset: 0 10/02/2023 History of malignant neoplasm of lung Rodolfo Grubbs M.D. Onset: 12/17/2023 Social History Type Date Description Comments Sex Unknown Tobacco Use Start: Unknown End: Unknown Former Cigare tte Smoker Smoking Status Reviewed: 03/15/23 Former Cigarette Smo ker ETOH Use Occasionally consumes alcoho l Allergies and adverse reactions Description No Known Drug Allergies Medications Active Medications SIG Qnty Indications Order ing Provider Date Tamsulosin HCL0.4mg Capsules 2 tablets by mouth at bed time 180caps Rodolfo Mathews M.D. 06/27/2024 Ketoconazole2% Cream apply twice daily as needed 45gm Rodolfo Mathews M.D. 12/17/2023 Hydrocortisone2.5% Cream apply twice a day to affected area as needed 60gm Rodolfo Mathews M.D. 09/18/2023 Metoprolol Succinate ER50mg Tablets ER 24HR Take 1 Tablet By Mouth Once Daily 90tabs Rodolfo Mathews M.D. 03/26/2023 Accu-Chek SmartviewStrips use twice daily to test blood sugar as directed 200units E11.9 Rodolfo Mathews M.D. 02/12/2023 Pioglitazone AEC54uj Tablets Take 1 Tablet By Mouth Daily 90tabs Rodolfo Mathews M.D. 02/06/2023 1St Tier Unifine Pentips [id number] X 8 mm Misc use 4 times daily 400units Rodolfo Mathews M.D. 01/26/2023 Klor-Con B3958Lhn Tablets ER Take 1 Tablet Once Daily 90tabs Rodolfo Mathews M.D. 10/20/2022 Enalapril Tcxrdyi93pb Tablets Take 1 Tablet Once Daily 90tabs Rodolfo Mathews M.D. 10/20/2022 Aspirin Adult Low Kpsn05uu Tablets DR 1 by mouth every day Rodolfo Mathews M.D. 05/09/2022 Lyxdbiimr92qa Tablets 1 tab by mouth every day Rodolfo Mathews M.D. 05/09/2022 Tramadol CEY72oz Tablets Take 2 Tablets By Mouth Twice A Day 120tabs Rodolfo Mathews M.D. 05/05/2022 Levothyroxine Wjjwyz179thn Tablets Take 1 Tablet 5 Days Per Week 90tabs Rodolfo Mathews M.D. Wjsiotaggt11tn Tablets Take 1 Tablet By Mouth Every Day 90tabs Rodolfo Mathews M.D. Grrskvitrqv647gw Tablets Take 1 Tablet By Mouth Once Daily 90tabs Rodolfo Mathews M.D. Pravastatin Hesrgq87kc Tablets Take 1 Tablet By Mouth AT Supper 90tabs Rodolfo Mathews M.D. Limavninkh943iy Tablets take one tablet by mouth 2 times a day 360tabs Rosamaria Pretty M.D. Advair YOW408-12aax/Act Aerosol Inhale 2 Puffs By Mouth Every 12 Hours Jose Jacobo Svhcegwtjli3rp Tablets Take 1 Tablet By Mouth Every Day Unknown Glipizide/Metformin Hydrochloride5-500mg Tablets Take 2 Tablets By Mouth Twice A Day 360tabs Rodolfo Mathews M.D. Doxycycline Tmsrfbtdxkl317ul Tablets Take 1 Tablet By Mouth Twice A Day For 2 Weeks Jose Jacobo Qtzlvmnpcj70ul Capsules DR Take 1 Capsule By Mouth Daily Jose Jacobo Vital Signs Date Vital Result Comment 06/27/2024 1:26pm BP Systolic 130 mmHg BP Diastolic 72 mmHg Heart Rate 76 /min Height 61 inches 5'1 Weight 289.00 lb BMI (Body Mass Index) 54.6 kg/m2 Results Test Acquired Date Facility Test Result H/L Range Note Laboratory test finding 06/27/2024 Inhouse Glucose Fingerstick 188 Hemoglobin A1c 6.7 TSH+Free T4 06/27/2024 [facility] TSH 0.310 uIU/mL Low 0.450-4 .500 T4,Free(Direct) 2.22 ng/dL High 0.82- 1. 77 Basic Metabolic Panel (8) 03/19/2024 [facility] Glucose 120 mg/dL High 70-99 BUN 18 mg/dL 8-27 Creatinine 1.08 mg/dL 0.76-1. 27 eGFR 68 mL/min/1.7 3 >59 BUN/Creatinine Ratio 17 10-24 Sodium 142 mmol/L 134-144 Potassium 4.2 mmol/L 3.5-5.2 Chloride 103 mmol/L 96-106 Carbon Dioxide, Total 25 mmol/L 20-29 Calcium 9.2 mg/dL 8.6-10. 2 Laboratory test finding 03/19/2024 Inhouse Glucose Fingerstick 133 Hemoglobin A1c 7.2% Laboratory test finding 12/17/2023 Inhouse Glucose Fingerstick 192 Hemoglobin A1c 8.6% Comprehensive Metabolic Panl 09/03/2023 [facility] Glucose 98 mg/dL (70-99) BUN 72 mg/dL High (8-23) Creatinine 1.7 mg/dL High (0.7-1. 2) Sodium 143 mmol/L (133-14 5) Potassium 5.6 mmol/L High (3.6-5. 2) Chloride 104 mmol/L (98-107 ) Bicarbonate 26 mmol/L (22-29) Anion Gap 13 (4-17) Albumin 4.2 GM/DL (3.4-4. 8) Calcium 9.6 mg/dL (8.6-10 .5) Bilirubin,Total 0.3 mg/dL (0-1.2 ) Total Protein 6.3 GM/DL (6.2-8. 2) Ag Ratio 2.0 Ast 14 U/L (0-40) Alk Phos 60 U/L (40-129 ) Alt 10 U/L (0-41) Estimated GFR Creatinine 41 ML/MIN/1.7 3M2 1 Complete Abc With Diff 09/03/2023 [facility] WBC 7.9 K/MM3 (4.0-11 .0) RBC 4.22 M/MM3 Low (4.70-6 .10) HGB 12.7 GM/DL Low (13.7-1 7.1) HCT 40.7 % (40.5-5 0.0) MCV 96.4 FL High (80.0-9 4.0) MCH 30.1 pg (27.0-3 4.0) MCHC 31.2 g/dL Low (33.0-3 7.0) PLT 169 K/MM3 (150-46 0) RDW-SD 49.4 FL High (<47.0) MPV 11.5 FL (9.4-12 .4) Automated NRBC 0.0 #/100WBC'S Abs. NRBC 0.0 K/MM3 Neut # 6.0 K/MM3 (1.3-7. 0) Lymph # 1.2 K/MM3 (0.8-3. 1) Dawson# 0.6 K/MM3 (0.4-1. 3) Eo # 0.0 K/MM3 (0.0-0. 4) Baso # 0.0 K/MM3 (0.0-0. 1) Abs. Imm Gran 0.1 K/MM3 Neut 76.2 % High (44-76) Lymph 14.6 % Low (15-43) Monocyte 7.8 % (4.5-10 .5) Eo 0.5 % (0-6) Baso 0.3 % (0-2) Imm Gran 0.6 % Laboratory test finding 09/03/2023 Inhouse Glucose Fingerstick 109 Laboratory test finding 08/17/2023 Inhouse Glucose Fingerstick 118 Hemoglobin A1c 6.6% Laboratory test finding 05/09/2023 Inhouse Glucose Fingerstick 89 Laboratory test finding 03/15/2023 [facility] TSH With Reflex To FT4 1.62 uIU/mL (0.4-4. 2) Laboratory test finding 03/15/2023 Inhouse Glucose Fingerstick 263 Hemoglobin A1c 8.0% Order 12/26/2022 Inhouse EKG <pending> Laboratory test finding 12/26/2022 Inhouse Glucose Fingerstick 77 Laboratory test finding 12/26/2022 [facility] Vitamin B12 580 pg/mL (232-12 45) Ferritin 269 NG/ML (16-294 ) Iron & Tibc 12/26/2022 [facility] Iron 54 g /dL (45-160 ) Unsaturated Iron Binding [place] 263 g /dL (110-37 0) Est T. Iron Bind Capacity 317 g /dL (155-53 0) % Iron Saturation 17 % Low (20-55) Laboratory test finding 12/26/2022 [facility] TSH With Reflex To FT4 0.08 uIU/mL Low (0.4-4. 2) Free T4 1.89 ng/dL High (0.70-1 .80) Comprehensive Metabolic Panl 12/26/2022 [facility] Glucose 90 mg/dL (70-99) BUN 40 mg/dL High (8-23) Creatinine 1.6 mg/dL High (0.7-1. 2) Sodium 143 mmol/L (133-14 5) Potassium 5.1 mmol/L (3.6-5. 2) Chloride 105 mmol/L (98-107 ) Bicarbonate 27 mmol/L (22-29) Anion Gap 11 (4-17) Albumin 4.1 GM/DL (3.4-4. 8) Calcium 9.3 mg/dL (8.6-10 .5) Bilirubin,Total 0.2 mg/dL (0-1.2 ) Total Protein 5.9 GM/DL Low (6.2-8. 2) Ag Ratio 2.3 Ast 18 U/L (0-40) Alk Phos 40 U/L (40-129 ) Alt 10 U/L (0-41) Estimated GFR Creatinine 42 ML/MIN/1.7 3M2 2 Complete Abc With Diff 12/26/2022 [facility] WBC 7.5 K/MM3 (4.0-11 .0) RBC 3.94 M/MM3 Low (4.70-6 .10) HGB 12.3 GM/DL Low (13.7-1 7.1) HCT 39.9 % Low (40.5-5 0.0) MCV 101.3 FL High (80.0-9 4.0) MCH 31.2 pg (27.0-3 4.0) MCHC 30.8 g/dL Low (33.0-3 7.0) PLT 201 K/MM3 (150-46 0) RDW-SD 50.4 FL High (<47.0) MPV 10.9 FL (9.4-12 .4) Automated NRBC 0.0 #/100WBC'S Abs. NRBC 0.0 K/MM3 Neut # 5.1 K/MM3 (1.3-7. 0) Lymph # 1.5 K/MM3 (0.8-3. 1) Dawson# 0.7 K/MM3 (0.4-1. 3) Eo # 0.1 K/MM3 (0.0-0. 4) Baso # 0.0 K/MM3 (0.0-0. 1) Abs. Imm Gran 0.0 K/MM3 Neut 68.8 % (44-76) Lymph 20.4 % (15-43) Monocyte 9.0 % (4.5-10 .5) Eo 1.1 % (0-6) Baso 0.4 % (0-2) Imm Gran 0.3 % Laboratory test finding 12/13/2022 Inhouse Hemoglobin A1c 7.8% Glucose Fingerstick 152 Laboratory test finding 08/14/2022 Inhouse Glucose Fingerstick 139 Comprehensive Metabolic Panl 08/07/2022 [facility] Glucose 141 mg/dL High (70-99) 3 BUN 41 mg/dL High (8-23) Creatinine 1.4 mg/dL High (0.7-1. 2) Sodium 142 mmol/L (133-14 5) Potassium 4.8 mmol/L (3.6-5. 2) Chloride 107 mmol/L (98-107 ) Bicarbonate 27 mmol/L (22-29) Anion Gap 8 (4-17) Albumin 4.3 GM/DL (3.4-4. 8) Calcium 9.2 mg/dL (8.6-10 .5) Bilirubin,Total 0.2 mg/dL (0-1.2 ) Total Protein 5.9 GM/DL Low (6.2-8. 2) Ag Ratio 2.7 Ast 13 U/L (0-40) Alk Phos 51 U/L (40-129 ) Alt 11 U/L (0-41) Estimated GFR Creatinine 51 ML/MIN/1.7 3M2 4 Lipid Panel 08/07/2022 [facility] Cholesterol, Total 155 mg/dL (<200) Triglyceride 196 mg/dL High (<150) 5 HDL Chol 48 mg/dL (>39) LDL Cholesterol, Calculated 68 mg/dL (0-130) Non HDL Cholesterol (Calc) 107 mg/dL (<160) Urinalysis Complete 08/07/2022 [facility] Appear/Color LIGHT YELLOW 6 SP. [place] 1.015 (1.002- 1.030) Urine PH 6.0 (5.0-8. 0) Urine Albumin NEGATIVE (Neg) Urine Glucose 2+ Abnormal (Neg) Urine Ketones NEGATIVE (Neg) Urine Bilirubin NEGATIVE (Neg) Urine Hemoglobin NEGATIVE (Neg) Urine Nitrite NEGATIVE (Neg) Urine Leukocyte NEGATIVE (Neg) Urobilinogen NORMAL mg/dL (Norm) Urine WBCs <1 /HPF (0-5) Urine RBCs <1 /HPF (0-3) Squamous Epith <1 /HPF (0-8) Hyaline Cast 1 LPF (0-2) Laboratory test finding 08/07/2022 [facility] Hemoglobin A1c 6.5 % High (4.0-5. 6) 7 Complete Abc With Diff 08/07/2022 [facility] WBC 9.5 K/MM3 (4.0-11 .0) RBC 3.96 M/MM3 Low (4.70-6 .10) HGB 12.0 GM/DL Low (13.7-1 7.1) HCT 38.5 % Low (40.5-5 0.0) MCV 97.2 FL High (80.0-9 4.0) MCH 30.3 pg (27.0-3 4.0) MCHC 31.2 g/dL Low (33.0-3 7.0) PLT 194 K/MM3 (150-46 0) RDW-SD 48.4 FL High (<47.0) MPV 11.1 FL (9.4-12 .4) Automated NRBC 0.0 #/100WBC'S Abs. NRBC 0.0 K/MM3 Neut # 7.2 K/MM3 High (1.3-7. 0) Lymph # 1.4 K/MM3 (0.8-3. 1) Dawson# 0.7 K/MM3 (0.4-1. 3) Eo # 0.0 K/MM3 (0.0-0. 4) Baso # 0.0 K/MM3 (0.0-0. 1) Abs. Imm Gran 0.1 K/MM3 Neut 76.5 % High (44-76) Lymph 14.7 % Low (15-43) Monocyte 7.7 % (4.5-10 .5) Eo 0.3 % (0-6) Baso 0.2 % (0-2) Imm Gran 0.6 % Laboratory test finding 08/07/2022 [facility] TSH 0.48 uIU/mL (0.4-4. 2) Urinary Microalbumin 08/07/2022 [facility] Micro-Albumin 24.7 mg/L High (<20) 8 Malb/Creat Ratio 59.5 MG/GM High (0-20) Urine Creat For Micro Albumin 41.5 mg/dL Laboratory test finding 05/09/2022 Inhouse Hemoglobin A1c 7.2% Glucose Fingerstick 129 1 Creatinine based est imated glomerular filtration (eGFR) in adults is calculated using the National Kidney Foundation recommended 2021 CKD-EPI equation. Estimates GFR from serum creatinine, age and sex. 2 Creatinine based est imated glomerular filtration (eGFR) in adults is calculated using the National Kidney Foundation recommended 2021 CKD-EPI equation. Estimates GFR from serum creatinine, age and sex. 3 Patient not fasting 4 Creatinine based est imated glomerular filtration (eGFR) in adults is calculated using the National Kidney Foundation recommended 2021 CKD-EPI equation. Estimates GFR from serum creatinine, age and sex. 5 Patient not fasting 6 CLEAR 7 MONITORING: In known diabetic patients, hemoglobin A1c targets should be discussed with health care provider. DIAGNOSTIC USE: The [place] Diabetes Association (ADA) and the World Health Organization (WHO) recommend the use of HbA1c to diagnose diabetes using a threshold of 6.5%. Patients who have an HbA1c between 5.7% and 6.4% are considered at increased risk for developing diabetes in the future. CAUTION: Falsely low HbA1c results may be observed in patients with hemolytic anemia, homozygous forms of abnormal hemoglobin (e.g. SS, CC, SC), , recent blood loss or hemoglobin F greater than 7%. Fructosamine may be used as an alternate test in these cases. REFERENCE: ADA: Standards of Medical Care in Diabetes 2020, The Journal of Clinical and Applied Research and Education Volume 43, Supplement 1 8 The urine microalbum in test is designed to monitor renal function. When screening for Bence Carrillo proteinuria, urine electrophoresis is recommended. Procedures Date Code Description Status 06/20/2023 S9982 Medical Records Copying Fee, Per Page Completed 01/23/2023 G0180 Physician Certification Serv ices, Per Certification Period Completed 12/26/2022 98020 Electrocardiogram Complete C ompleted Medical Devices Description No Information Available Encounters Type Date Location Provider Dx Diagnosis Office Visit 07/30/2024 1:53p Main Office Rodolfo Mathews M.D. E11.9 Type 2 diabetes mellitus without complications E78.5 Hyperlipidemia, unsp ecified Assessments Date Code Description Provider 07/30/2024 E11.9 Type 2 diabetes mellitus without complications Rodolfo Mathews M.D. 07/30/2024 E78.5 Hyperlipidemia, unspecified Rodolfo Mathews M.D. Plan of Treatment Future Appointment(s):* 10/07/2024 1:15 pm - Rodolfo Mathews M.D. at Main Office 06/27/2024 - Rodolfo Mathews M.D.* E11.9 Type 2 diabetes mellitus without complications * Functional Status Description No Information Available Mental Status Description No Information Available Referrals Refer to Reason for Referral Status Appt Donnell e [facility] Cardiology (New Patients) Palpitations Created [address] [place] [address] [phone] [facility] ABNORMAL TIBIA/? METASTATIC DI SEASE Closed 10/01/2023 [address] [place] [address] [phone] [facility] Wound Care LEFT LEG WOUND Closed [address] [place] [address] [phone]
--- OUTSIDE RECORDS SUMMARY | 2024-08-08 10:17 | XMS_ITS | Continuity of Care Document ---
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 Start Date: 08/18/23 Status: Ordered Quantity: 60.0 Unit: tablet Repeat number: 1 Lasix 40 mg oral tablet 40 mg, 1, tablet, By Mouth, Daily, # 90 tablet, Refills 0, Maintenance, 08/18/23 6:01:00 PM EST, Partial fill upon patient request if the prescription is for a schedule II opioid drug. Start Date: 08/18/23 Status: Ordered Quantity: 90.0 Unit: tablet Repeat number: 1 pioglitazone 30 mg oral tablet 1 tablet = 30 mg, By Mouth, Daily, # 90 tablet, 0 Refills, Maintenance, 08/18/23 6:01:00 PM EST, Tablet, Partial fill upon patient request if the prescription is for a schedule II opioid drug. Start Date: 08/18/23 Status: Ordered Quantity: 90.0 Unit: tablet Repeat number: 1 Problem List Condition Confirmation Course Effective Dates Status Health St atus Informant Severe obesity Confirmed Active Results Radiology Reports * Exam Date Time Procedure Performing Provider Status 07/20/24 1:10 PM Ankle Min 3 Views Left Butler; Auth (Verified) Notes: (Ankle Min 3 Views Left) Reason For Exam: Pain RESULT: Ankle Min 3 Views Left Ankle Min 3 Views Left Hx of Present Illness: Ongoing L ankle pain. Injury last year and increased pain over the last week. Pt now unable to put weight on LLE.; Reason: Pain; Clinical Question(s): Fracture COMPARISON: 08/18/2023 FINDINGS: No evidence of acute or healing fracture or bone lesion. Bone mineralization is unchanged, with scattered subtle areas of relative hypodensity in the included portion of the tibia and fibula, similarto the July, study. There is slight spurring along the tip of the medial malleolus There is a slight tilt of the talus with narrowing of the lateral portion of the tibiotalar space relative to the medial portion, unchanged from the prior study. The talus is otherwise unremarkable. No other arthritic changes. Generalized swelling at the ankle. Vascular calcification. IMPRESSION: Generalized soft tissue swelling at the ankle . No fracture or dislocation. 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 Stable inhomogeneity of bone mineralization in the lower tibia and fibula. There is no corresponding abnormality in the radionuclide bone scan of 09/07/2023 and this finding is of doubtful clinical significance. WSN: [id number] Ordering Physician: Luca Dean Dictated By: Harshad Valera MD Dictated Date/Time: 07/20/24 1:25 pm Reviewed By: Harshad Valera MD Signed By: Harshad Valera MD Signed Date/Time: 07/20/24 1:25 pm Transcribed By: JESUS Transcribed Date/Time: 07/20/24 1:20 pm Vital Signs Most recent to oldest [Reference Range]: 1 2 Height 176 cm (07/20/24 12:44 PM) Weight 132.5 kg (07/20/24 12:44 PM) Oxygen Saturation [94-100 %] 93 % *L* (07/20/24 12:44 PM) 94 % (07/20/24 12:43 PM) Pulse Rate [55-90 bpm] 58 bpm (07/20/24 12:44 PM) 61 bpm (07/20/24 12:43 PM) Blood Pressure [90-138/55-84 mm Hg] 115/ 55mm Hg (07/20/24 12:44 PM) Respiratory Rate [16-30 br/min] 16 br/mi n (07/20/24 12:44 PM) Temperature [96.8-100.4 DegF] 97.3 DegF (07/20/24 12:44 PM) Mode of Delivery (Oxygen) Room air (07/20/24 12:44 PM) Room air (07/20/24 12:43 PM) Dry Weight 132.5 kg (07/20/24 12:44 PM) Dry Weight Obtained Via Standing scale (07/20/24 12:44 PM) Social History Social History Type Response Smoking Status Former smoker, quit more than 30 days ago entered on: 07/20/24 Sex Sex Representation Male (finding) Note * Nimisha Marsh: PERFORM Event Display: Patient Education Leaflets Authored Date: [id number] Osteoarthritis ?? [id number] Osteoarthritis Osteoarthritis happens??when the cartilage in a joint becomes damaged and worn. This may be from age, wear and tear, overuse of the joint, obesity, or other problems. Osteoarthritis??can affect any joint, but it's most common in??hands, knees, spine, hips, and feet. Symptoms include joint stiffness, and pain. It's also called degenerative joint disease. Home care ??? When a joint is more sore than usual, rest it for 1 or 2 days. ??? Heat can help relieve stiffness. Take a hot bath or apply a heating pad for up to 30 minutes at a time. If symptoms are worse in the morning, using heat just after awakening can help relax the muscle and soothe the joints.? Ice helps relieve pain. It's often used after activity. Use a cold pack wrapped in a thin cloth on the joint for 10 to 15 minutes at a time.? Alternating hot and cold can also help relieve pain. Try this for 20 minutes at a time, several times per day. ??? Exercise helps prevent the muscles and ligaments around the joint from becoming weak.??It also helps maintain function in the joint.??Be as active as you can. Talk to your healthcare provider about what activity program is bestfor you. ??? Excess weight puts a lot of extra strain on weight-bearing joints of the lower back, hips, knees, feet, and ankles. If you are overweight, talk to your provider about a safe and effective weight loss program. ??? Use anti-inflammatory medicines as prescribed for pain. This includes acetaminophen or NSAIDs (nonsteroidal anti-inflammatory drugs) such as ibuprofen or naproxen. Don't take NSAIDs if your provider has told you that you can't take NSAIDS because of other health problems. If needed, topical or injected medicines may be advised. Talk with your provider if these choices aren't enough to manage your pain. Follow the directions on all ilef-gti-rmedbvy medicines. If you're t aking NSAIDs routinely, talk to your provider. ??? Talk with your provider about devices that mighthelp improve your function and reduce pain. ??? Talk with your provider about physical therapy to help strengthen your joints and the nearby muscles. ?? Follow-up care Follow up with your healthcare provider, or as advised. ?? When to get medical advice Call your healthcare provider right away if any of the following occur: ??? Redness or swelling of a painful joint ??? Discharge or pus from a painful joint ??? Fever of??100.4??F (38??C)??or higher,or as directed by your healthcare provider ??? Joint pain that gets worse ??? Decreased ability to move the joint or bear weight on the joint ?? Last Reviewed Date: 2021 ?? 6814-2047 [employer]. All rights reserved. This information is not intended as a substitute for professional medical care. Always follow your healthcare professional's instructions. ?? Patient Care team information Care Team Personnel Name: Veronica Gore RN Position: [facility] RN Member Role: Primary Care Nurse Name: Pricila Marcano RN Position: S RN Member Role: Primary Care Nurse Name: Rodolfo Mathews MD Position: S Physician - Endocrinology Member Role: PCP Address: [address] [place] [address] [facility] [address] Telecom: Care Team Related Persons Name: MAULIK WITT Insurance Providers Guarantor name: MAO WITT Health Plan Information #: 2 Payer: [employer] Member Number: [id number] Policy Number: NA Group Number: [id number] Health Plan Information #: 1 Payer: MEDICARE PART B OUTPT Member Number: [id number] Policy Number: NA Group Number: NA
[2024-08-08 10:21] VITALS: BP 122/60; PULSE 61; O2SAT 97; BMI 42.8
--- NOTE | 2024-08-08 10:21 | MHC.OFFVIS ---
Vital Signs 08/08/24 10:21 Height 5 ft 9 in Weight 290 lb BMI 42.8 BP 122/60 Blood Pressure Location Lt brachial Position Sitting Pulse 61 Pulse Source Pulse Oximeter Pulse Oximetry (%) 97 Oxygen Delivery Method Room Air Intake Visit Reasons: COPD Supervisor Modern Languages Required: No Allergies oxycodone [Percocet] Allergy (Severe, Verified 08/08/24 10:24) Difficulty Swallowing HPI Comments Details: The patient is a 83-year-old gentleman known asthma COPD overlap syndrome in addition to chronic cough and DUANE on CPAP. Overall he is doing better on the budesonide and albuterol. He hasn't had to use yet Peter all on a regular basis. However, now that he has been using he started having significant shakes and tremors. There pretty moderate severity. Usually when they happen his knee down because he he is concerned is going to fall. His symptoms may last for several hours. He is wondering if he can do something about it. He has a lot of albuterol left over. We talked about switching over to Xopenex or given him a lower dose concentration albuterol. In the meantime he can try doing less time on the nebulizer with the albuterol to do a half a treatment and see if this is enough to be beneficial without as many side effects. He has been coughing. The cough is a lot better. Nonproductive in nature. We talked about doing an x-ray. He will do it during the next time. Otherwise he has had some lower extremity edema. 06/12/2022 the patient is here for a pulmonary follow-up visit. He continues to do well. He is responding well to his respiratory therapy. He was also using his oxygen continuously. He has a portable oxygen concentrator that he uses when he leaves the home. He does use the oxygen with his CPAP at nighttime. He did get the new CPAP in appears to be working well. The CPAP therapy has been affecting beneficial. He does use it for more than 4 hours a night. We did review his last CT scan of the chest that was done back in November 2021. He appears to have some nodular densities some of them appear to be subsolid in nature specially the 1 in the right upper lobe. therefore, this nodule appears to be more concerning and will need close follow-up. Therefore will plan to repeat the CT scan prior to his next appointment in the spring. If the patient has any worsening symptoms prior to that he is to call the office for an earlier evaluation. 12/05/2022 the patient is here for a pulmonary follow-up visit. Overall he is doing better from a respiratory status. He has had significant amount of weight loss that has been intentional. This has helped his breathing and also other comorbidities. He continues uses respiratory therapy as prescribed. He is also using the CPAP. The CPAP therapy continues to be affecting beneficial. He does use with oxygen. He does use it for more than 4 hours a night. He did undergo a recent CT scan of the chest and here for follow-up. We did review the findings. It appears that the right upper lobe pulmonary nodule which is subsolid in nature has become slightly larger. The fact that is becoming solidified is concerning for a malignant transformation. It is also mentioned about the axillary density which appears to be larger as well. Based on the findings I did talk to the patient about the different options. One option would be to refer him to thoracic surgery to see about potential resection of the pulmonary nodule. The patient already has evidence of chronic respiratory failure but if this is malignant surgery will have curative intent if there is no other disease elsewhere. Another option be to try to attempt a CT-guided biopsy. This will be helpful to get a better understanding of this changing nodular density specially in view of his respiratory failure and avoiding any unnecessary surgery. The trigger option would be to get a PET scan. PET scan unfortunately, may not be very effective with subsolid nodules but in view of having the other findings indeed would help assess the metabolic activity of these nodular densities. The 4th option would be to watch and wait. However based on the fact that this nodular densities change in both in size and also in solid component would advise and not to wait. 03/08/2023 the patient is here for a pulmonary follow-up visit. 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 He required a lobectomy. He also had question on involvement in the periphery and was recommended to undergo chemotherapy. PDL1 activity was negligible. The patient opted on no chemotherapy at this time. He has been noticing worsening respiratory symptoms and also worsening cough for the last several days. He has been using his oxygen at 5 L pulse and then continues at home. Denies any fevers or chills. Does feel some chest heaviness. Will go and request a chest x-ray and also start him on prednisone and antibiotics. if the patient is no better he needs to call the office or go to the ER for further care. The patient is also having dysphagia. Family for some reason are resistant to a barium swallow. I will refer to speech pathology for an evaluation. 04/26/2023 the patient is here for pulmonary follow-up visit. He is feeling a little better. He is recovering slowly from his lobectomy but he is feeling better. His less short of breath. The patient has been using he oxygen intermittently. We did talk about the importance of exercise and pulmonary rehabilitation. I did encourage him to use the oxygen when he exercises in order to buildup exercise capacity and endurance. The patient did follow-up with Oncology. He is not interested in any chemotherapy at this time. Therefore will follow-up with him with a repeat CT scan. he continues having issues with swallow. At this point the patient is not interested in having any additional testing. 07/03/2023 the patient is here for a pulmonary follow-up visit. The patient overall has been feeling well. He has recovered well from his surgery. Recently had a repeat CT scan of the chest that was personally by me demonstrating no evidence of any recurrence of the cancer no new nodules and normal postoperative changes. He continues on his respiratory therapy. He also has the oxygen with activity that has been affecting beneficial. Otherwise the patient is doing well will plan to follow-up in 6 months after his next CT scan. He does comment that sometimes when he is very tired he hyperventilates. His family is concerned. Will have him undergo blood work including a blood gas to make sure that there isn't any significant hypercarbia. I believe he probably has some degree of obesity hypoventilation syndrome. 08/24/2023 The patient is here for a pulmonary follow up visit. Has been breathing better. Has not requiered the oxygen as often. Recently had an injury to his Leg lower extremity and went to the ER. In the ER he had an xray with lesions ?metastatic disease. His PCP did referred him to oncology. Based on his last CT chest 09/18, no evidence of reoccurance. His has been using his respiratory therapy. 10/24/2023 patient is here for pulmonary follow-up visit. The patient has for the most of her status is still dealing the issue the chest x-ray. He did follow-up with meals and the patient did have a bone scan done. No evidence of any uptake on the bone scan of the lower extremities which is reassuring. Although there was some nonspecific uptake around left-sided ribs. It is not clear if it is related to trauma from the chest tube for his symptoms other abnormality. Differential did include neoplastic disease. His last CT scan of the chest was back in May 2023 demonstrating no evidence of any recurrence. Going to go ahead and repeat the CT scan now. In the meantime has an appointment Marydel to further address the findings. Breathing sy patient is doing well. He continues to in his weight. He continues uses respiratory inhalers. Also uses a CPAP at nighttime. The CPAP therapy continues to be affecting beneficial. He does try to use it more than 4 hours a night. 03/05/2024 the patient is here for pulmonary follow-up visit. Recently was hospitalized at [facility]. The patient apparently was in care of his sick . She had a bad UTI use very stress concerned about her health. He started developing worsening lower extremity edema weight gain. He started developing worsening shortness of breath which point they called the ambulance and took him to the hospital. Initially he had a CTA to rule out PE. Although it did result in some kidney injury. The patient did not have any evidence of any pulmonary emboli report and there was no evidence of any airspace disease or recurrence of the lung cancer. The patient however was found to be in significant heart failure. He was placed on diuretics. He diuresed significantly and felt a lot better. His breathing is overall better. Although his kidney function initially started getting better now worse again. Therefore they backed off on the diuretics at this time. Will continue to follow closely with his doctors. In the meantime he continues uses CPAP at nighttime. The CPAP therapy has been affecting beneficial. Not that he had a recent CT scan he will not have to get a CT scan until 6 months from now to follow up with his typical lung cancer protocol. Otherwise patient is without any complaints. Will continue with the current respiratory therapy will continue with diuresis as tolerated. 08/08/2024 the patient is here for a pulmonary follow-up visit. Overall he is doing well from respiratory status. He actually lost a lot of weight part is been being proactive the part is that he does not have much of an appetite. He was supposed to have a CT scan prior to this visit but he had to postpone it because of some snow where he lives. Therefore scheduled sometime in August. Once I get the report I will let him know how that comes out. In the meantime he continues uses respiratory medications as prescribed. He is also using the CPAP. He has used CPAP now for about 30 years. CPAP therapy continues to be affecting beneficial. Although he does not like his current nasal mask. I do believe that he will do better with pillows. I will request a P 30 I mask for him. He is currently working with the FRAN Phelps from [place]. The patient will follow-up in 4 to 6 months. If he develops any issues prior to that he will call for an earlier assessment. 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 DUANE on CPAP Asthma-COPD overlap syndrome Surgical History Status post removal of lung Family History Mother Anemia Stroke Father Dementia Social History Patient Tobacco Use Status: Former Tobacco user Tobacco use type: Cigarette Years Smoked: 20 years service: No Review of Systems Const Denies night sweats and Reports weight loss ENT Denies change in voice, Denies lip swelling, Denies mouth pain, Reports nasal congestion, Reports nasal discharge and Denies tongue swelling Card Reports leg edema, Reports dyspnea and Reports dyspnea on exertion Resp Denies chest congestion, Reports cough, Reports dyspnea, Reports dyspnea on exertion and Denies wheezing GI Denies abdominal pain Musc Denies no additional complaints Skin/Breast Reports wounds (LLE wound) Neuro Denies Neuro-related abnormal movements Psych Denies no additional complaints Roel/Lymph Denies easy bleeding and Denies lymphadenopathy Aller/Immun Denies lip swelling, Denies tongue swelling and Denies wheezing Physical Exam Vital Signs: Last Vital Signs Pulse 61 12/13/24 10:21 BP 122/60 12/13/24 10:21 Pulse Ox 97 08/08/24 10:21 Oxygen Delivery Method Room Air 08/08/24 10:21 BMI result Body Mass Index 42.8 Const General: alert HEENT General nose exam: Abnormal external nose present and Nasal discharge present Eyes Pupils: Equal, round and reactive pupils present Neck Neck: Yes normal visual inspection, Yes full ROM and Yes no lymphadenopathy Chest Chest palpation & inspection: normal inspection of the chest Resp Auscultation: no wheezes and diminished lung sounds Cardio Rate: regular rate Rhythm: regular rhythm Heart sounds: S1 normal heart sound present and S2 normal heart sound present GI Palpation (GI): Soft to palpation and nontender Auscultation: normal bowel sounds General: Yes no CVA tenderness Back/Spine/Pelvis Back: no CVA tenderness Skin General skin exam: rashes and/or lesions noted Neuro Cranial nerves: Yes Equal, round and reactive pupils present Assessment & Plan Assessment & Plan (1) Asthma-COPD overlap syndrome: Code(s): J44.9 - Chronic obstructive pulmonary disease, unspecified Category: Medical (2) DUANE on CPAP: Code(s): G47.33 - Obstructive sleep apnea (adult) (pediatric); Z99.89 - Dependence on other enabling machines and devices Category: Medical (3) Dyspnea: Code(s): R06.00 - Dyspnea, unspecified Category: Medical Qualifiers: Dyspnea type: shortness of breath Qualified Code(s): R06.02 - Shortness of breath (4) Pneumoconiosis due to asbestos and other mineral fibers: Code(s): J61 - Pneumoconiosis due to asbestos and other mineral fibers Category: Medical (5) 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: Code(s): J92.0 - Pleural plaque with presence of asbestos Category: Medical (6) Adenocarcinoma of lung, stage 1: Comment: s/p resection Code(s): C34.90 - Malignant neoplasm of unspecified part of unspecified bronchus or lung Category: Medical Qualifiers: Laterality: unspecified laterality Qualified Code(s): C34.90 - Malignant neoplasm of unspecified part of unspecified bronchus or lung (7) CHF (congestive heart failure): Code(s): I50.9 - Heart failure, unspecified Category: Medical Qualifiers: Heart failure chronicity: chronic Heart failure type: diastolic Qualified Code(s): I50.32 - Chronic diastolic (congestive) heart failure Plan Continue oxygen with activity and sleep Continue respiratory therapy: Advair MRAICEL as needed Continue CPAP therapy, (Replacement early 2021)trial p30i Continue neb therapy CT chest 1-2 months diuresis as tolerated F/U 6-8 months Coding Level of Care Code Est Pt Level 4 (72750) Complex EM visit Add On G2211 Diagnoses Asthma-COPD overlap syndrome J44.9 DUANE on CPAP G47.33; Z99.89 Shortness of breath R06.02 Dyspnea type: shortness of breath Pneumoconiosis due to asbestos and other mineral fibers J61 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
== END 2024-08-08 10:50 | disposition home or self-care (01) ==
PROVIDERS: PCP Internal Medicine Endocrinology, Diabetes & Metabolism; Visit Provider Hospitalist
DX: J44.9 Chronic obstructive pulmonary disease, unspecified (principal); G47.33 Obstructive sleep apnea (adult) (pediatric); Z99.89 Dependence on other enabling machines and devices; J61 Pneumoconiosis due to asbestos and other mineral fibers; J92.0 Pleural plaque with presence of asbestos; C34.90 Malignant neoplasm of unspecified part of unspecified bronchus or lung; I50.32 Chronic diastolic (congestive) heart failure
CPT/HCPCS: 99214; G2211

== ENCOUNTER → 2024-08-08 10:14 | Outpatient (BNVA) | payer MEDICARE, SELFPAY | PROVIDERS: PCP Internal Medicine Endocrinology, Diabetes & Metabolism; Visit Provider Hospitalist | DX: J44.89 Other specified chronic obstructive pulmonary disease (principal); J61 Pneumoconiosis due to asbestos and other mineral fibers; J92.0 Pleural plaque with presence of asbestos; G47.33 Obstructive sleep apnea (adult) (pediatric); R06.02 Shortness of breath; C34.90 Malignant neoplasm of unspecified part of unspecified bronchus or lung; I50.32 Chronic diastolic (congestive) heart failure; Z99.89 Dependence on other enabling machines and devices | CPT/HCPCS: 99212 ==

== ENCOUNTER 2024-09-01 06:51 | Outpatient (REF) | payer MEDICARE, SELFPAY ==
--- NOTE | ~2024-09-01 | CT_ITS ---
CLINICAL HISTORY: C34.90 - Malignant neoplasm of unspecified part of unspecified bronchus ... CT chest without contrast Comparison: 11/20/2023 Findings: The heart is normal size. The visualized thyroid and mediastinum are unremarkable. Scarring with volume loss again noted in the right hemithorax, unchanged. No new solid or semi solid mass and no new areas of airspace or interstitial consolidation. No pleural effusion with calcified pleural plaque unchanged. The upper abdomen is unremarkable. No acute fractures. IMPRESSION: 1. No acute findings or evidence of recurrent neoplastic disease This document has been electronically signed by: Venkata Tse MD on 09/01/2024 08:39:55
== END 2024-09-01 06:52 | disposition home or self-care (01) ==
LOC: HO.CT 06:51
PROVIDERS: PCP Internal Medicine Endocrinology, Diabetes & Metabolism; Visit Provider Hospitalist
DX: C34.90 Malignant neoplasm of unspecified part of unspecified bronchus or lung (principal)
CPT/HCPCS: 71250

== ENCOUNTER → 2024-09-01 06:55 | Outpatient (BNV) | payer MEDICARE, SELFPAY | PROVIDERS: PCP Internal Medicine Endocrinology, Diabetes & Metabolism; Visit Provider Specialist | DX: C34.90 Malignant neoplasm of unspecified part of unspecified bronchus or lung (principal) | CPT/HCPCS: 71250 ==

== ENCOUNTER 2025-02-18 12:18 | Outpatient (REF) | payer MEDICARE, SELFPAY ==
--- NOTE | ~2025-02-18 | CT_ITS ---
EXAMINATION: CT CHEST WITHOUT IV CONTRAST INDICATION: C34.90 - Malignant neoplasm of unspecified part of unspecified bronchus ... COMPARISON: Comparison is made with prior examinations dated 09/01/2024 at 11/20/2023. TECHNIQUE: Helical CT scan of the chest was performed without intravenous contrast. Coronal and sagittal reformatted images were generated and reviewed. This CT exam was performed with one or more of the following dose reduction techniques: automated exposure control, adjustment of the mA and/or kV according to patient size, use of iterative reconstruction technique. DLP: 398 mGy-cm CHEST: THYROID: The thyroid is unremarkable. LUNGS: The patient is again noted to be status post right upper lobectomy. There is a 2 mm nodule in the left upper lobe (series 4, image 30) without change. No new pulmonary nodules or masses are identified. MEDIASTINUM: There is a 1.5 cm superior mediastinal node without change. No new lymphadenopathy is identified. ALESSANDRA: Evaluation of the hilar regions is limited by lack of intravenous contrast material. CARDIOVASCULATURE: The heart is normal in size. There is no pericardial effusion. The thoracic aorta is normal in caliber. DEGREE OF CORONARY CALCIFICATION: mild PLEURA: There are calcified pleural plaques, consistent with prior asbestos exposure. There is no pleural effusion. No pneumothorax. MAIN AIRWAYS: The mainstem bronchi and proximal branches are patent. AXILLA: There is a 2.3 cm left axillary lymph node without change. BONES AND SOFT TISSUES: There is degenerative disc disease of the spine. UPPER ABDOMEN: The visualized portions of the liver, spleen, and right adrenal gland have an unremarkable unenhanced appearance. Again seen is a 1.5 cm low-density left adrenal nodule, compatible with an adenoma. CT/CT chest wo IV con IMPRESSION: 1. Status post right upper lobectomy. Calcified pleural plaques consistent with prior asbestos exposure. 2. Stable 1.5 cm superior mediastinal node. Stable 2.3 cm left axillary lymph node. 3. Stable 1.5 cm left adrenal adenoma. Electronically signed by: Sheldon Allen MD 02/18/2025 01:11 PM EDT
--- OUTSIDE RECORDS SUMMARY | 2025-02-18 14:21 | XMS_ITS | Encounter Summary ---
Author Organization [facility] Address [address] [place] [address] Care Team Providers Care Tin Flipper Name Role Phone oRdolfo Mathews MD Primary Care Provider Unav ailRodolfo Nails MD Primary Care Provider Unav ailable Molly Bro PA-C Unavailable [phone] Gordon Navas MD Unavailable Encounter Details Date Type Department Care Team Description 12/17/2018 Entry Level Marketing Assistant Report Medical Records [address] [place] [id number] Rodolfo Mathews MD Social History Tobacco Use Types Packs/Day Years Used Date Smoking Tobacco: Never Assessed Sex Assigned at Date Recorded Not on file documented as of this encounter Plan of Treatment Not on file documented as of this encounter Visit Diagnoses Not on filedocumented in this encounter Care Teams Tin Flipper Relationship Specialty Start Date End Date Rodolfo Mathews MD PCP - General Endocrinology 01/01/19 01/15/23 Rodolfo Mathews MD PCP - General Endocrinology 01/16/23 Molly Bro, PA-C [address] [id number] Thoracic Surgery 01/30/23 Gordon Navas MD [address] [id number] Lung Cancer Bulking Machine Operator 01/30/23 documented as of this encounter
== END 2025-02-18 12:19 | disposition home or self-care (01) ==
LOC: HO.CT 12:18
PROVIDERS: PCP Internal Medicine Endocrinology, Diabetes & Metabolism; Visit Provider Hospitalist
DX: C34.90 Malignant neoplasm of unspecified part of unspecified bronchus or lung (principal)
CPT/HCPCS: 71250

== ENCOUNTER → 2025-02-18 12:21 | Outpatient (BNV) | payer MEDICARE, SELFPAY | PROVIDERS: PCP Internal Medicine Endocrinology, Diabetes & Metabolism; Visit Provider Radiology Diagnostic Radiology | DX: J92.9 Pleural plaque without asbestos (principal); D35.02 Benign neoplasm of left adrenal gland; R59.0 Localized enlarged lymph nodes | CPT/HCPCS: 71250 ==

== ENCOUNTER 2025-03-11 09:14 | Outpatient (AMB) | payer MEDICARE, SELFPAY ==
--- NOTE | 2025-03-11 09:26 | MHC.OFFVIS ---
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 Overall he is doing better on the budesonide and albuterol. He hasn't had to use yet Peter all on a regular basis. However, now that he has been using he started having significant shakes and tremors. There pretty moderate severity. Usually when they happen his knee down because he he is concerned is going to fall. His symptoms may last for several hours. He is wondering if he can do something about it. He has a lot of albuterol left over. We talked about switching over to Xopenex or given him a lower dose concentration albuterol. In the meantime he can try doing less time on the nebulizer with the albuterol to do a half a treatment and see if this is enough to be beneficial without as many side effects. He has been coughing. The cough is a lot better. Nonproductive in nature. We talked about doing an x-ray. He will do it during the next time. Otherwise he has had some lower extremity edema. 06/12/2022 the patient is here for a pulmonary follow-up visit. He continues to do well. He is responding well to his respiratory therapy. He was also using his oxygen continuously. He has a portable oxygen concentrator that he uses when he leaves the home. He does use the oxygen with his CPAP at nighttime. He did get the new CPAP in appears to be working well. The CPAP therapy has been affecting beneficial. He does use it for more than 4 hours a night. We did review his last CT scan of the chest that was done back in November 2021. He appears to have some nodular densities some of them appear to be subsolid in nature specially the 1 in the right upper lobe. therefore, this nodule appears to be more concerning and will need close follow-up. Therefore will plan to repeat the CT scan prior to his next appointment in the spring. If the patient has any worsening symptoms prior to that he is to call the office for an earlier evaluation. 12/05/2022 the patient is here for a pulmonary follow-up visit. Overall he is doing better from a respiratory status. He has had significant amount of weight loss that has been intentional. This has helped his breathing and also other comorbidities. He continues uses respiratory therapy as prescribed. He is also using the CPAP. The CPAP therapy continues to be affecting beneficial. He does use with oxygen. He does use it for more than 4 hours a night. He did undergo a recent CT scan of the chest and here for follow-up. We did review the findings. It appears that the right upper lobe pulmonary nodule which is subsolid in nature has become slightly larger. The fact that is becoming solidified is concerning for a malignant transformation. It is also mentioned about the axillary density which appears to be larger as well. Based on the findings I did talk to the patient about the different options. One option would be to refer him to thoracic surgery to see about potential resection of the pulmonary nodule. The patient already has evidence of chronic respiratory failure but if this is malignant surgery will have curative intent if there is no other disease elsewhere. Another option be to try to attempt a CT-guided biopsy. This will be helpful to get a better understanding of this changing nodular density specially in view of his respiratory failure and avoiding any unnecessary surgery. The trigger option would be to get a PET scan. PET scan unfortunately, may not be very effective with subsolid nodules but in view of having the other findings indeed would help assess the metabolic activity of these nodular densities. The 4th option would be to watch and wait. However based on the fact that this nodular densities change in both in size and also in solid component would advise and not to wait. 03/08/2023 the patient is here for a pulmonary follow-up visit. 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 He required a lobectomy. He also had question on involvement in the periphery and was recommended to undergo chemotherapy. PDL1 activity was negligible. The patient opted on no chemotherapy at this time. He has been noticing worsening respiratory symptoms and also worsening cough for the last several days. He has been using his oxygen at 5 L pulse and then continues at home. Denies any fevers or chills. Does feel some chest heaviness. Will go and request a chest x-ray and also start him on prednisone and antibiotics. if the patient is no better he needs to call the office or go to the ER for further care. The patient is also having dysphagia. Family for some reason are resistant to a barium swallow. I will refer to speech pathology for an evaluation. 04/26/2023 the patient is here for pulmonary follow-up visit. He is feeling a little better. He is recovering slowly from his lobectomy but he is feeling better. His less short of breath. The patient has been using he oxygen intermittently. We did talk about the importance of exercise and pulmonary rehabilitation. I did encourage him to use the oxygen when he exercises in order to buildup exercise capacity and endurance. The patient did follow-up with Oncology. He is not interested in any chemotherapy at this time. Therefore will follow-up with him with a repeat CT scan. he continues having issues with swallow. At this point the patient is not interested in having any additional testing. 07/03/2023 the patient is here for a pulmonary follow-up visit. The patient overall has been feeling well. He has recovered well from his surgery. Recently had a repeat CT scan of the chest that was personally by me demonstrating no evidence of any recurrence of the cancer no new nodules and normal postoperative changes. He continues on his respiratory therapy. He also has the oxygen with activity that has been affecting beneficial. Otherwise the patient is doing well will plan to follow-up in 6 months after his next CT scan. He does comment that sometimes when he is very tired he hyperventilates. His family is concerned. Will have him undergo blood work including a blood gas to make sure that there isn't any significant hypercarbia. I believe he probably has some degree of obesity hypoventilation syndrome. 08/24/2023 The patient is here for a pulmonary follow up visit. Has been breathing better. Has not requiered the oxygen as often. Recently had an injury to his Leg lower extremity and went to the ER. In the ER he had an xray with lesions ?metastatic disease. His PCP did referred him to oncology. Based on his last CT chest 09/18, no evidence of reoccurance. His has been using his respiratory therapy. 10/24/2023 patient is here for pulmonary follow-up visit. The patient has for the most of her status is still dealing the issue the chest x-ray. He did follow-up with meals and the patient did have a bone scan done. No evidence of any uptake on the bone scan of the lower extremities which is reassuring. Although there was some nonspecific uptake around left-sided ribs. It is not clear if it is related to trauma from the chest tube for his symptoms other abnormality. Differential did include neoplastic disease. His last CT scan of the chest was back in May 2023 demonstrating no evidence of any recurrence. Going to go ahead and repeat the CT scan now. In the meantime has an appointment [facility] to further address the findings. Breathing sy patient is doing well. He continues to in his weight. He continues uses respiratory inhalers. Also uses a CPAP at nighttime. The CPAP therapy continues to be affecting beneficial. He does try to use it more than 4 hours a night. 03/05/2024 the patient is here for pulmonary follow-up visit. Recently was hospitalized at [facility]. The patient apparently was in care of his sick . She had a bad UTI use very stress concerned about her health. He started developing worsening lower extremity edema weight gain. He started developing worsening shortness of breath which point they called the ambulance and took him to the hospital. Initially he had a CTA to rule out PE. Although it did result in some kidney injury. The patient did not have any evidence of any pulmonary emboli report and there was no evidence of any airspace disease or recurrence of the lung cancer. The patient however was found to be in significant heart failure. He was placed on diuretics. He diuresed significantly and felt a lot better. His breathing is overall better. Although his kidney function initially started getting better now worse again. Therefore they backed off on the diuretics at this time. Will continue to follow closely with his doctors. In the meantime he continues uses CPAP at nighttime. The CPAP therapy has been affecting beneficial. Not that he had a recent CT scan he will not have to get a CT scan until 6 months from now to follow up with his typical lung cancer protocol. Otherwise patient is without any complaints. Will continue with the current respiratory therapy will continue with diuresis as tolerated. 08/08/2024 the patient is here for a pulmonary follow-up visit. Overall he is doing well from respiratory status. He actually lost a lot of weight part is been being proactive the part is that he does not have much of an appetite. He was supposed to have a CT scan prior to this visit but he had to postpone it because of some snow where he lives. Therefore scheduled sometime in August. Once I get the report I will let him know how that comes out. In the meantime he continues uses respiratory medications as prescribed. He is also using the CPAP. He has used CPAP now for about 30 years. CPAP therapy continues to be affecting beneficial. Although he does not like his current nasal mask. I do believe that he will do better with pillows. I will request a P 30 I mask for him. He is currently working with the FRAN Phelps from [place]. The patient will follow-up in 4 to 6 months. If he develops any issues prior to that he will call for an earlier assessment. 03/11/2025 the patient is here for pulmonary follow-up visit. Overall he is doing okay. The patient did have a recent CT scan of the chest and I did personally reviewed with him. No evidence of any recurrent cancer which is reassuring. He does have a left-sided adrenal adenoma. Measuring about 1.5 cm. I did compare to his previous CAT scans from 2022 and also 2021 demonstrating the same adrenal adenoma. Does not appear to be any significant changes in the last several years likely benign. He will follow-up with his primary care doctor and registry nurse for further testing. For now though will do another CAT scan in 6 months and after that will graduate him to a CAT scan every year since he has been cancer free now for at least a couple years. He continues his respiratory therapy as prescribed. The patient also has been using the CPAP at nighttime. The CPAP therapy continues to be affecting beneficial. He does use it for more than 4 hours a night. The patient is also losing weight as he is on a GLP 1 inhibitor. Seems to be tolerating it well. Will follow-up in 6-8 months if he has any issues prior to that he will call for an earlier assessment. 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 DUANE on CPAP Asthma-COPD overlap syndrome Surgical History Status post removal of lung Family History Mother Anemia Stroke Father Dementia Social History Patient Tobacco Use Status: Former Tobacco user Tobacco use type: Cigarette Years Smoked: 20 years service: No Review of Systems Const Denies night sweats and Reports weight loss ENT Denies change in voice, Denies lip swelling, Denies mouth pain, Reports nasal congestion, Reports nasal discharge and Denies tongue swelling Card Reports leg edema, Reports dyspnea and Reports dyspnea on exertion Resp Denies chest congestion, Reports cough, Reports dyspnea, Reports dyspnea on exertion and Denies wheezing GI Denies abdominal pain Musc Denies no additional complaints Skin/Breast Reports wounds (LLE wound) Neuro Denies Neuro-related abnormal movements Psych Denies no additional complaints Roel/Lymph Denies easy bleeding and Denies lymphadenopathy Aller/Immun Denies lip swelling, Denies tongue swelling and Denies wheezing Physical Exam Vital Signs: Last Vital Signs Pulse 76 03/11/25 09:57 BP 118/64 03/11/25 09:57 Pulse Ox 96 03/11/25 09:57 Oxygen Delivery Method Room Air 03/11/25 09:57 BMI result Body Mass Index 42.5 Const General: alert HEENT General nose exam: Abnormal external nose present and Nasal discharge present Eyes Pupils: Equal, round and reactive pupils present Neck Neck: Yes normal visual inspection, Yes full ROM and Yes no lymphadenopathy Chest Chest palpation & inspection: normal inspection of the chest Resp Auscultation: no wheezes and diminished lung sounds Cardio Rate: regular rate Rhythm: regular rhythm Heart sounds: S1 normal heart sound present and S2 normal heart sound present GI Palpation (GI): Soft to palpation and nontender Auscultation: normal bowel sounds General: Yes no CVA tenderness Back/Spine/Pelvis Back: no CVA tenderness Skin General skin exam: rashes and/or lesions noted Neuro Cranial nerves: Yes Equal, round and reactive pupils present Assessment & Plan Assessment & Plan (1) Asthma-COPD overlap syndrome: Code(s): J44.9 - Chronic obstructive pulmonary disease, unspecified Category: Medical (2) DUANE on CPAP: Code(s): G47.33 - Obstructive sleep apnea (adult) (pediatric); Z99.89 - Dependence on other enabling machines and devices Category: Medical (3) Dyspnea: Code(s): R06.00 - Dyspnea, unspecified Category: Medical Qualifiers: Dyspnea type: shortness of breath Qualified Code(s): R06.02 - Shortness of breath (4) Pneumoconiosis due to asbestos and other mineral fibers: Code(s): J61 - Pneumoconiosis due to asbestos and other mineral fibers Category: Medical (5) 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: Code(s): J92.0 - Pleural plaque with presence of asbestos Category: Medical (6) Adenocarcinoma of lung, stage 1: Comment: s/p resection Code(s): C34.90 - Malignant neoplasm of unspecified part of unspecified bronchus or lung Category: Medical Qualifiers: Laterality: unspecified laterality Qualified Code(s): C34.90 - Malignant neoplasm of unspecified part of unspecified bronchus or lung (7) CHF (congestive heart failure): Code(s): I50.9 - Heart failure, unspecified Category: Medical Qualifiers: Heart failure chronicity: chronic Heart failure type: diastolic Qualified Code(s): I50.32 - Chronic diastolic (congestive) heart failure Plan Continue oxygen with activity and sleep Continue respiratory therapy: Advair MARICEL as needed Continue CPAP therapy, (Replacement early 2021)trial p30i Continue neb therapy CT chest 6 months diuresis as tolerated F/U 6-8 months Orders: Orders CT chest wo IV con 08/27/25 C34.90 - Malignant neoplasm of unspecified part of unspecified bronchus or lung, R91.1 - Solitary pulmonary nodule Coding Level of Care Code Est Pt Level 4 (09618) Complex EM visit Add On G2211 Diagnoses Asthma-COPD overlap syndrome J44.9 DUAEN on CPAP G47.33; Z99.89 Shortness of breath R06.02 Dyspnea type: shortness of breath Pneumoconiosis due to asbestos and other mineral fibers J61 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
--- OUTSIDE RECORDS SUMMARY | 2025-03-11 09:33 | XMS_ITS | Continuity of Care Document ---
Author Organization [facility] [address] [facility] [address] [place] [address] Phone [phone] Care Team Providers Care Applications Analyst Name Role Phone Rodolfo Mathews M.D. Care Team Information Re ceiver [phone] Problems Active Problems Provider Date Type 2 diabetes mellitus Rodolfo Mathews M.D. Onset: 05/09/2022 Essential hypertension Rodolfo Mathews M.D. O nset: 05/09/2022 Obstructive sleep apnea syndrome Rodolfo mckeon M.D. Onset: 05/09/2022 History of malignant neoplasm of thyroid Rodolfo mccall M.D. Onset: 08/14/2022 Hyperlipidemia Rodolfo Mathews M.D. Onset: 0 10/02/2023 History of malignant neoplasm of lung Rodolfo Grubbs M.D. Onset: 12/17/2023 Prostate specific antigen ab ove reference range Rodolfo Mathews M.D. Onset: 10/07/2024 Social History Type Date Description Comments Sex Male Sex Unknown Tobacco Use Start: Unknown End: Unknown Former Cigare tte Smoker Smoking Status Reviewed: 10/07/24 Former Cigarette Smo ker ETOH Use Occasionally consumes alcoho l Allergies and adverse reactions Description No Known Drug Allergies Medications Active Medications SIG Qnty Indications Order ing Provider Date Mounjaro7.5mg/0.5ML Solution Auto-Inject inject 0.5 milliliters weekly 6ml E11.9 Rodolfo Mathews M.D. 02/25/2025 Tamsulosin HCL0.4mg Capsules 2 tablets by mouth [...] 200units E11.9 Rodolfo Mathews M.D. 02/12/2023 Pioglitazone GSU59fm Tablets Take 1 Tablet By Mouth Daily 90tabs Rodolfo Mathews M.D. 02/06/2023 1St Tier Unifine Pentips [id number] X 8 mm Misc use 4 times daily 400units Rodolfo Mathews M.D. 01/26/2023 Klor-Con R4415Mvc Tablets ER Take 1 Tablet By Mouth Once Daily 90tabs Rodolfo Mathews M.D. 10/20/2022 Enalapril Bktybco52wf Tablets Take 1 Tablet By Mouth Every Day 90tabs Rodolfo Mathews M.D. 10/20/2022 Aspirin Adult Low Pchg73cf Tablets DR 1 by mouth every day Rodolfo Mathews M.D. 05/09/2022 Ourcodief73tl Tablets 1 tab by mouth every day Rodolfo Mathews M.D. 05/09/2022 Tramadol CVS68jm Tablets Take 2 Tablets By Mouth Four Times Per Day as Needed For Pain 240tabs Rodolfo Mathews M.D. 05/05/2022 Levothyroxine Oopkcn870cqs Tablets Take 1 Tablet Daily 90tabs Rodolfo Mathews M.D. Rlxgsdhdij74ff Tablets Take 1 Tablet By Mouth Every Day 90tabs Rodolfo Mathews M.D. Xhdtflopbtp005re Tablets Take 1 Tablet By Mouth Every Day 90tabs Rodolfo Mathews M.D. Pravastatin Ykbsbl05yb Tablets Take 1 Tablet By Mouth AT Supper 90tabs Rodolfo Mathews M.D. Advair [id number]/Act Aerosol Inhale 2 Puffs By Mouth Every 12 Hours Jose Jacobo Zkhvnprqkkb5uc Tablets Take 1 Tablet By Mouth Every Day Unknown Glipizide/Metformin Hydrochloride5-500mg Tablets Take 1 Tablet By Mouth In Am 360tabs Rodolfo Mathews M.D. Doxycycline Auyqagaiwig287me Tablets Take 1 Tablet By Mouth Twice A Day For 2 Weeks Jose Jacobo Mtlrrvhqnq62ni Capsules DR Take 1 Capsule By Mouth Daily Jose Jacobo History Medications Nyinhwxl7ge/0.5ML Solution Auto-Inject inject 0.5 milliliters weekly 6ml E11.9 Rodolfo Mathews M.D. 10/27/2024 - 02/25/2025 Mounjaro2.5mg/0.5ML Solution Auto-Inject inject 0.5 milliliters weekly 2ml Rodolfo Mathews M.D. 10/07/2024 - 10/27/2024 Vital Signs Date Vital Result Comment 02/25/2025 1:05pm BP Systolic 118 mmHg BP Diastolic 66 mmHg Heart Rate 72 /min Height 61 inches 5'1 Weight 291.25 lb BMI (Body Mass Index) 55.0 kg/m2 Results Test Acquired Date Facility Test Result H/L Range Note Lipid Panel 03/06/2025 [facility] Cholesterol, Total 178 mg/dL 100-199 Triglycerides 157 mg/dL High 0-149 HDL Cholesterol 45 mg/dL >39 VLDL Cholesterol Enio 28 mg/dL 5-40 LDL Chol Calc (Nih) 105 mg/dL High 0-99 LDL Calc Comment: TNP Comp. Metabolic Panel (14) 03/06/2025 [facility] Glucose 165 mg/dL High 70-99 BUN 29 mg/dL High 8-27 Creatinine 1.27 mg/dL 0.76-1.27 eGFR 56 mL/min/1.7 3 Low >59 BUN/Creatinine Ratio 23 10-24 Sodium 143 mmol/L 134-144 Potassium 4.7 mmol/L 3.5-5.2 Chloride 103 mmol/L 96-106 Carbon Dioxide, Total 25 mmol/L 20-29 Calcium 9.0 mg/dL 8.6-10.2 Protein, Total 5.8 g/dL Low 6.0-8.5 Albumin 3.8 g/dL 3.7-4.7 Globulin, Total 2.0 g/dL 1.5-4.5 Bilirubin, Total 0.4 mg/dL 0.0-1.2 Alkaline Phosphatase 69 IU/L 44-121 Ast (Sgot) 14 IU/L 0-40 Alt (SGPT) 8 IU/L 0-44 Albumin/Creatin ine Ratio, Random Urine 03/06/2025 [facility] Creatinine, Urine 69.2 mg/dL Not Estab. Albumin, Urine 32.1 ug/mL Not Es tab. Alb/Creat Ratio 46 mg/gcreat High 0-29 1 TSH Rfx on Abnormal to Free T4 03/06/2025 [facility] TSH RFX On Abnormal To Free T4 12.600 uIU/mL High 0.450-4.50 0 T4,Free (Direct) 1.45 ng/dL 0.82-1.77 Urinalysis, Complete 03/06/2025 [facility] Specific [place] 1.018 1.005-1.03 0 pH 7.5 5.0-7.5 Urine-Color Yellow Yellow Appearance Clear Clear WBC Esterase Negative Negative Protein Trace Negative/T race Glucose Negative Negative Ketones Negative Negative Occult Blood Negative Negative Bilirubin Negative Negative Urobilinogen,Se mi-Qn 1.0 mg/dL 0.2-1.0 Nitrite, Urine Negative Negative Microscopic Examination See Comment: 2 Microscopic Examination See below: 3 WBC None seen /hpf 0 - 5 RBC None seen /hpf 0 - 2 Epithelial Cells (non renal) None seen /hpf 0 - 10 Epithelial Cells (renal) TNP Casts None seen /lpf None seen Cast Type TNP Crystals TNP Crystal Type TNP Mucus Threads TNP Bacteria None seen None seen/Few Yeast TNP Trichomonas TNP Comment TNP CBC With Differential/Pl atelet 03/06/2025 [facility] WBC 7.2 x10E3/uL 3.4-10.8 RBC 4.13 x10E6/uL Low 4.14-5.80 Hemoglobin 13.0 g/dL 13.0-17.7 Hematocrit 40.7 % 37.5-51.0 MCV 99 fL High 79-97 MCH 31.5 pg 26.6-33.0 MCHC 31.9 g/dL 31.5-35.7 RDW 12.2 % 11.6-15.4 Platelets 174 x10E3/uL 150-450 Neutrophils 74 % Not Estab. Lymphs 18 % Not Estab. Monocytes 6 % Not Estab. Eos 1 % Not Estab. Basos 0 % Not Estab. Immature Cells TNP Neutrophils (Absolute) 5.3 x10E3/uL 1.4-7.0 Lymphs (Absolute) 1.3 x10E3/uL 0.7-3.1 Monocytes(Absol tribe) 0.5 x10E3/uL 0.1-0.9 Eos (Absolute) 0.1 x10E3/uL 0.0-0.4 Baso (Absolute) 0.0 x10E3/uL 0.0-0.2 Immature Granulocytes 1 % Not Estab. Immature Grans (Abs) 0.0 x10E3/uL 0.0-0.1 NRBC TNP Hematology Comments: TNP Glucose Fingerstick 02/25/2025 Inhouse Glucose Fingerstick 283 Hemoglobin A1c 02/25/2025 Inhouse Hemoglobin A1c 9.0% TSH Rfx on Abnormal to Free T4 10/07/2024 [facility] TSH RFX On Abnormal To Free T4 9.860 uIU/mL High 0.450-4.50 0 T4,Free (Direct) 1.27 ng/dL 0.82-1.77 Glucose Fingerstick 10/07/2024 Inhouse Glucose Fingerstick 112 Hemoglobin A1c 10/07/2024 Inhouse Hemoglobin A1c 6.4% TSH+Free T4 06/27/2024 [facility] TSH 0.310 uIU/mL Low 0.450-4.50 0 T4,Free(Direct) 2.22 ng/dL High 0.82- 1.77 Glucose Fingerstick 06/27/2024 Inhouse Glucose Fingerstick 188 Hemoglobin A1c 06/27/2024 Inhouse Hemoglobin A1c 6.7 Basic Metabolic Panel (8) 03/19/2024 [facility] Glucose 120 mg/dL High 70-99 BUN 18 mg/dL 8-27 Creatinine 1.08 mg/dL 0.76-1.27 eGFR 68 mL/min/1.7 3 >59 BUN/Creatinine Ratio 17 10-24 Sodium 142 mmol/L 134-144 Potassium 4.2 mmol/L 3.5-5.2 Chloride 103 mmol/L 96-106 Carbon Dioxide, Total 25 mmol/L 20-29 Calcium 9.2 mg/dL 8.6-10.2 Hemoglobin A1c 03/19/2024 Inhouse Hemoglobin A1c 7.2% Glucose Fingerstick 03/19/2024 Inhouse Glucose Fingerstick 133 Glucose Fingerstick 12/17/2023 Inhouse Glucose Fingerstick 192 Hemoglobin A1c 12/17/2023 Inhouse Hemoglobin A1c 8.6% Comprehensive Metabolic Panl 09/03/2023 [facility] Glucose 98 mg/dL (70-99) BUN 72 mg/dL High (8-23) Creatinine 1.7 mg/dL High (0.7-1.2) Sodium 143 mmol/L (133-145) Potassium 5.6 mmol/L High (3.6-5.2) Chloride 104 mmol/L (98-107) Bicarbonate 26 mmol/L (22-29) Anion Gap 13 (4-17) Albumin 4.2 GM/DL (3.4-4.8) Calcium 9.6 mg/dL (8.6-10.5) Bilirubin,Total 0.3 mg/dL (0-1.2 ) Total Protein 6.3 GM/DL (6.2-8.2 ) Ag Ratio 2.0 Ast 14 U/L (0-40) Alk Phos 60 U/L (40-129) Alt 10 U/L (0-41) Estimated GFR Creatinine 41 ML/MIN/1.7 3M2 4 Complete Abc With Diff 09/03/2023 [facility] WBC 7.9 K/MM3 (4.0-11.0) RBC 4.22 M/MM3 Low (4.70-6.10 ) HGB 12.7 GM/DL Low (13.7-17.1 ) HCT 40.7 % (40.5-50.0 ) MCV 96.4 FL High (80.0-94.0 ) MCH 30.1 pg (27.0-34.0 ) MCHC 31.2 g/dL Low (33.0-37.0 ) PLT 169 K/MM3 (150-460) RDW-SD 49.4 FL High (<47.0) MPV 11.5 FL (9.4-12.4) Automated NRBC 0.0 #/100WBC'S Abs. NRBC 0.0 K/MM3 Neut # 6.0 K/MM3 (1.3-7.0) Lymph # 1.2 K/MM3 (0.8-3.1) [place]# 0.6 K/MM3 (0.4-1.3) Eo # 0.0 K/MM3 (0.0-0.4) Baso # 0.0 K/MM3 (0.0-0.1) Abs. Imm Gran 0.1 K/MM3 Neut 76.2 % High (44-76) Lymph 14.6 % Low (15-43) Monocyte 7.8 % (4.5-10.5) Eo 0.5 % (0-6) Baso 0.3 % (0-2) Imm Gran 0.6 % Glucose Fingerstick 09/03/2023 Inhouse Glucose Fingerstick 109 Glucose Fingerstick 08/17/2023 Inhouse Glucose Fingerstick 118 Hemoglobin A1c 08/17/2023 Inhouse Hemoglobin A1c 6.6% Glucose Fingerstick 05/09/2023 Inhouse Glucose Fingerstick 89 Glucose Fingerstick 03/15/2023 Inhouse Glucose Fingerstick 263 Hemoglobin A1c 03/15/2023 Inhouse Hemoglobin A1c 8.0% TSH With Reflex To FT4 03/15/2023 [facility] TSH With Reflex To FT4 1.62 uIU/mL (0.4-4.2) Order 12/26/2022 Inhouse EKG <pending> Glucose Fingerstick 12/26/2022 Inhouse Glucose Fingerstick 77 Ferritin 12/26/2022 [facility] Ferritin 269 NG/ML (16-294) Vitamin B12 12/26/2022 [facility] Vitamin B12 580 pg/mL (232-1245) Free T4 12/26/2022 [facility] Free T4 1.89 ng/dL High (0.70-1.80 ) Complete Abc With Diff 12/26/2022 [facility] WBC 7.5 K/MM3 (4.0-11.0) RBC 3.94 M/MM3 Low (4.70-6.10 ) HGB 12.3 GM/DL Low (13.7-17.1 ) HCT 39.9 % Low (40.5-50.0 ) MCV 101.3 FL High (80.0-94.0 ) MCH 31.2 pg (27.0-34.0 ) MCHC 30.8 g/dL Low (33.0-37.0 ) PLT 201 K/MM3 (150-460) RDW-SD 50.4 FL High (<47.0) MPV 10.9 FL (9.4-12.4) Automated NRBC 0.0 #/100WBC'S Abs. NRBC 0.0 K/MM3 Neut # 5.1 K/MM3 (1.3-7.0) Lymph # 1.5 K/MM3 (0.8-3.1) [place]# 0.7 K/MM3 (0.4-1.3) Eo # 0.1 K/MM3 (0.0-0.4) Baso # 0.0 K/MM3 (0.0-0.1) Abs. Imm Gran 0.0 K/MM3 Neut 68.8 % (44-76) Lymph 20.4 % (15-43) Monocyte 9.0 % (4.5-10.5) Eo 1.1 % (0-6) Baso 0.4 % (0-2) Imm Gran 0.3 % Comprehensive Metabolic Panl 12/26/2022 [facility] Glucose 90 mg/dL (70-99) BUN 40 mg/dL High (8-23) Creatinine 1.6 mg/dL High (0.7-1.2) Sodium 143 mmol/L (133-145) Potassium 5.1 mmol/L (3.6-5.2) Chloride 105 mmol/L (98-107) Bicarbonate 27 mmol/L (22-29) Anion Gap 11 (4-17) Albumin 4.1 GM/DL (3.4-4.8) Calcium 9.3 mg/dL (8.6-10.5) Bilirubin,Total 0.2 mg/dL (0-1.2 ) Total Protein 5.9 GM/DL Low (6.2-8.2 ) Ag Ratio 2.3 Ast 18 U/L (0-40) Alk Phos 40 U/L (40-129) Alt 10 U/L (0-41) Estimated GFR Creatinine 42 ML/MIN/1.7 3M2 5 TSH With Reflex To FT4 12/26/2022 [facility] TSH With Reflex To FT4 0.08 uIU/mL Low (0.4-4.2) Iron & Tibc 12/26/2022 [facility] Iron 54 g/dL (45-160) Unsaturated Iron Binding [place] 263 g/dL (110-370) Est T. Iron Bind Capacity 317 g/dL (155-530) % Iron Saturation 17 % Low (20-55) Hemoglobin A1c 12/13/2022 Inhouse Hemoglobin A1c 7.8% Glucose Fingerstick 12/13/2022 Inhouse Glucose Fingerstick 152 Glucose Fingerstick 08/14/2022 Inhouse Glucose Fingerstick 139 Comprehensive Metabolic Panl 08/07/2022 [facility] Glucose 141 mg/dL High (70-99) 6 BUN 41 mg/dL High (8-23) Creatinine 1.4 mg/dL High (0.7-1.2) Sodium 142 mmol/L (133-145) Potassium 4.8 mmol/L (3.6-5.2) Chloride 107 mmol/L (98-107) Bicarbonate 27 mmol/L (22-29) Anion Gap 8 (4-17) Albumin 4.3 GM/DL (3.4-4.8) Calcium 9.2 mg/dL (8.6-10.5) Bilirubin,Total 0.2 mg/dL (0-1.2 ) Total Protein 5.9 GM/DL Low (6.2-8.2 ) Ag Ratio 2.7 Ast 13 U/L (0-40) Alk Phos 51 U/L (40-129) Alt 11 U/L (0-41) Estimated GFR Creatinine 51 ML/MIN/1.7 3M2 7 Lipid Panel 08/07/2022 [facility] Cholesterol, Total 155 mg/dL (<200) Triglyceride 196 mg/dL High (<150) 8 HDL Chol 48 mg/dL (>39) LDL Cholesterol, Calculated 68 mg/dL (0-130) Non HDL Cholesterol (Calc) 107 mg/dL (<160) Urinalysis Complete 08/07/2022 [facility] Appear/Color LIGHT YELLOW 9 SP. [place] 1.015 (1.002-1.0 30) Urine PH 6.0 (5.0-8.0) Urine Albumin NEGATIVE (Neg) Urine Glucose 2+ Abnormal (Neg) Urine Ketones NEGATIVE (Neg) Urine Bilirubin NEGATIVE (Neg) Urine Hemoglobin NEGATIVE (Neg) Urine Nitrite NEGATIVE (Neg) Urine Leukocyte NEGATIVE (Neg) Urobilinogen NORMAL mg/dL (Norm) Urine WBCs <1 /HPF (0-5) Urine RBCs <1 /HPF (0-3) Squamous Epith <1 /HPF (0-8) Hyaline Cast 1 LPF (0-2) Hemoglobin A1c 08/07/2022 [facility] Hemoglobin A1c 6.5 % High (4.0-5.6) 10 Complete Abc With Diff 08/07/2022 [facility] WBC 9.5 K/MM3 (4.0-11.0) RBC 3.96 M/MM3 Low (4.70-6.10 ) HGB 12.0 GM/DL Low (13.7-17.1 ) HCT 38.5 % Low (40.5-50.0 ) MCV 97.2 FL High (80.0-94.0 ) MCH 30.3 pg (27.0-34.0 ) MCHC 31.2 g/dL Low (33.0-37.0 ) PLT 194 K/MM3 (150-460) RDW-SD 48.4 FL High (<47.0) MPV 11.1 FL (9.4-12.4) Automated NRBC 0.0 #/100WBC'S Abs. NRBC 0.0 K/MM3 Neut # 7.2 K/MM3 High (1.3-7.0) Lymph # 1.4 K/MM3 (0.8-3.1) [place]# 0.7 K/MM3 (0.4-1.3) Eo # 0.0 K/MM3 (0.0-0.4) Baso # 0.0 K/MM3 (0.0-0.1) Abs. Imm Gran 0.1 K/MM3 Neut 76.5 % High (44-76) Lymph 14.7 % Low (15-43) Monocyte 7.7 % (4.5-10.5) Eo 0.3 % (0-6) Baso 0.2 % (0-2) Imm Gran 0.6 % TSH 08/07/2022 [facility] TSH 0.48 uIU/mL (0.4-4.2) Urinary Microalbumin 08/07/2022 [facility] Micro-Albumin 24.7 mg/L High (<20) 11 Malb/Creat Ratio 59.5 MG/GM High (0-20) Urine Creat For Micro Albumin 41.5 mg/dL Hemoglobin A1c 05/09/2022 Inhouse Hemoglobin A1c 7.2% Glucose Fingerstick 05/09/2022 Inhouse Glucose Fingerstick 129 1 Normal: 0 - 29 Moderately increased: 30 - 300 Severely increased: >300 2 Microscopic follows if indicated. 3 Microscopic was monie cated and was performed. 4 Creatinine based est imated glomerular filtration (eGFR) in adults is calculated using the National Kidney Foundation recommended 202 CKD-EPI equation. Estimates GFR from serum creatinine, age and sex. 5 Creatinine based est imated glomerular filtration (eGFR) in adults is calculated using the National Kidney Foundation recommended 202 CKD-EPI equation. Estimates GFR from serum creatinine, age and sex. 6 Patient not fasting 7 Creatinine based est imated glomerular filtration (eGFR) in adults is calculated using the National Kidney Foundation recommended 202 CKD-EPI equation. Estimates GFR from serum creatinine, age and sex. 8 Patient not fasting 9 CLEAR 10 MONITORING: In known diabetic patients, hemoglobin A1c targets should be discussed with health care provider. DIAGNOSTIC USE: The [place] [employer] (ADA) and the World Health [...] Research and Education Volume 43, Supplement 1 11 The urine microalbum in test is designed to monitor renal function. When screening for Bence Carrillo proteinuria, urine electrophoresis is recommended. Procedures Date Code Description Status 06/20/2023 S9982 Medical Records Copying Fee, Per Page Completed 01/23/2023 G0180 Physician Certification Serv ices, Per Certification Period Completed 12/26/2022 51253 Electrocardiogram Complete C ompleted Medical Devices Description No Information Available Encounters Type Date Location Provider Dx Diagnosis Office Visit 03/03/2025 12:48p Main Office Rodolfo Mathews M.D. I10 Essential (primary) hypertension E11.9 Type 2 diabetes ora itus without complications Assessments Date Code Description Provider 03/03/2025 I10 Essential (primary) hyperten rosa Rodlofo Mathews M.D. 03/03/2025 E11.9 Type 2 diabetes mellitus without complications Rodolfo Mathews M.D. Plan of Treatment Future Appointment(s):* 07/14/2025 1:45 pm - Rodolfo Mathews M.D. at Main Office 02/25/2025 - Rodolfo Mathews M.D.* E11.9 Type 2 diabetes mellitus without complications* New Medication:* Mounjaro 7.5 mg/0.5ML Functional Status Description No Information Available Mental Status Description No Information Available Referrals Refer to Reason for Referral Status Appt Donnell e [facility] (N ew Patients) Palpitations Patient Declined [address] [place] [address] [phone] [facility] ABNORMAL TIBIA/? METASTATIC DI SEASE Closed 10/01/2023 [address] [place] [address] [phone] [facility] LEFT LEG WOUND Closed [address] [place] [address] [phone]
--- OUTSIDE RECORDS SUMMARY | 2025-03-11 09:33 | XMS_ITS | Clinical Summary ---
Author Organization [facility] Address [address] [place] [address] Phone Care Team Providers Care Bisque Ware Dipper Name Role Phone Rodolfo Mathews MD Primary Care Provider [phone] Allergies Active Allergy Reactions Criticality Noted Date Comments Oxycodone-Acetaminophen Numbness 01/31/2019 Trouble breathing Medications gabapentin (NEURONTIN) 300 mg capsule Take 1 capsule (300 mg total) by mouth 2 (two) times a day. Active furosemide (LASIX) 40 mg tablet Bid@06,15 3 Active albuterol 2.5 mg /3 mL (0.083 %) nebulizer solution Take 3 mL (2.5 mg total) by nebulization every 4 (four) hours if needed for wheezing (for up to 30 days). 9 Active amLODIPine (NORVASC) 10 mg tablet Take 1 tablet (10 mg total) by mouth 1 (one) time each day. Active pioglitazone (ACTOS) 30 mg tablet Take 1 tablet (30 mg total) by mouth 1 (one) time each day. Active glyBURIDE-metFO RMIN (GLUCOVANCE) 5-500 mg per tablet Take 1 tablet by mouth 2 (two) times a day. Active pravastatin (PRAVACHOL) 40 mg tablet Take 1 tablet (40 mg total) by mouth 1 (one) time each day. Active enalapril (VASOTEC) 20 mg tablet Take 1 tablet (20 mg total) by mouth 1 (one) time each day. Active fenofibrate (LOFIBRA) 160 mg tablet Take 1 tablet (160 mg total) by mouth 1 (one) time each day. Active hydroCHLOROthia zide (HYDRODIURIL) 50 mg tablet Take 1 tablet (50 mg total) by mouth 1 (one) time each day. Active tamsulosin (FLOMAX) 0.4 mg 24 hr capsule Take 1 capsule (0.4 mg total) by mouth 1 (one) time each day. TAKE 2 TAB PO QHS Active aspirin 81 mg EC tablet Take 1 tablet (81 mg total) by mouth 1 (one) time each day. Active potassium chloride (KLOR-CON M20 ORAL) Take by mouth daily. Active albuterol sulfate (PROAIR HFA INHL) Inhale into the lungs 4 times daily. 2 PUFF 4 TIMES DAILY Active levothyroxine (SYNTHROID, LEVOTHROID) 200 mcg tablet Take 1 tablet (200 mcg total) by mouth 1 (one) time each day. Active levothyroxine (SYNTHROID, LEVOTHROID) 25 mcg tablet Take 1 tablet (25 mcg total) by mouth 1 (one) time each day. TAKE 1 A DAY WITH THE 200MCG Active traMADoL (ULTRAM) 50 mg tablet Take 1 tablet (50 mg total) by mouth 1 (one) time each day if needed. Max Daily Amount: 50 mg Active flaxseed oiL 1,000 mg capsule Take by mouth daily. Active budesonide (PULMICORT) 0.5 mg/2 mL nebulizer solution Take 2 mL (0.5 mg total) by nebulization 2 (two) times a day. For 30 days 9 Active montelukast (SINGULAIR) 10 mg tablet Take 1 tablet (10 mg total) by mouth at bedtime. 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 ([facility] V24, [facility] V28) 01/31/2019 Social History Tobacco Use Types Packs/Day Years Used Date Smoking Tobacco: Former Smokeless Tobacco: Never Sex and Gender Information Value Date Recorded Sex Assigned at Not on file Legal Sex Male 9:38 AM EST Gender Identity Not on file Sexual Orientation Not on file Obstetrics History Last Filed Vital Signs Vital Sign Reading Time Taken Comments Blood Pressure 154/74 01/30/2023 3:12 PM EDT Sit ting R Arm Pulse 80 01/30/2023 3:12 PM EDT Temperature - - Respiratory Rate - - Oxygen Saturation - - Inhaled Oxygen Concentration - - Weight 128 kg (282 lb) 01/30/2023 3:12 PM EDT Height 175.3 cm (5' 9 ) 01/30/2023 3:12 PM EDT Body Mass Index 41.64 01/30/2023 3:12 PM EDT Plan of Treatment Health Maintenance Due Date Last Done Comments Diabetes: Annual Foot Exam 1950 Diabetes: Annual Retina Eye Exam 1950 Pneumococcal Vaccine: 50+ Years (1 of 2 - PCV) 12/23/1959 Zoster Vaccines (1 of 2) 12/23/1959 RSV Immunization Adult Patients (1 - 1-dose 75+ series) 12/23/2015 Cholesterol Screening (Lipid Panel) 07/30/2022 Depression Screening 07/30/2022 Falls Risk Assessment 07/30/2022 Medicare Annual Wellness Visit 07/30/2022 Social Influencers of Health Screening 07/30/2022 COVID-19 Vaccine (4 - 2023-2 5 season) 2024 05/22/2022, 11/16/2021, 05/25/2021 Diabetes: Annual Urine Albumin-Creatinine Ratio (uACR) 08/07/2024 Diabetes: Blood Sugar Contro l Test (HGBA1C) 08/25/2024 02/24/2024 Diabetes: Annual GFR (Glomerular Filtration Rate) 02/26/2025 02/27/2024 Hypertension/CHF/CAD Annual BMP Blood Test 02/26/2025 02/27/2024 Influenza Vaccine (#1) 2025 05/25/2021 DTaP,Tdap,and Td Vaccines (2 - Td or Tdap) 11/12/2032 11/12/2022 HIB Vaccines Aged Out No longer eligi ble based on patient's age to complete this topic HPV Vaccines Aged Out No longer eligi ble based on patient's age to complete this topic Hepatitis A Vaccines Aged Out No long er eligible based on patient's age to complete this topic Hepatitis B Vaccines Aged Out No long er eligible based on patient's age to complete this topic IPV Vaccines Aged Out No longer eligi ble based on patient's age to complete this topic MMR Vaccines Aged Out No longer eligi ble based on patient's age to complete this topic Meningococcal ACWY Vaccine Aged Out N o longer eligible based on patient's age to complete this topic Meningococcal B Vaccine Aged Out No l onger eligible based on patient's age to complete this topic RSV Immunization Patients Under 20 months Aged Out No longer eligible b ased on patient's age to complete this topic Varicella Vaccines Aged Out No longer eligible based on patient's age to complete this topic Insurance MEDICARE [facility] Advance Directives Documents on File Type Date 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
--- OUTSIDE RECORDS SUMMARY | 2025-03-11 09:33 | XMS_ITS | Clinical Summary ---
Author Organization [facility] Address [address] [place] [address] Care Team Providers Care Harp Action Assembler Name Role Phone UrbanoRodolfo mckeon Primary Care Provider [phone] Allergies Active Allergy Reactions Criticality Noted Date Comments Oxycodone-Acetaminophen Anaphylaxis High 02/23/2024 Medications aspirin 81 mg EC tablet Take 81 mg by mouth once a day. Active diltiazem CD (CARDIZEM CD) 360 mg 24 hr capsule Take 360 mg by mouth once a day. 02/23/2014 Active fenofibrate (LOFIBRA) tablet 160 mg Take 160 mg by mouth once a day. Active finasteride (PROSCAR) 5 mg tablet Take 5 mg by mouth once a day. Active flaxseed oiL 1,000 mg capsule Take 1,000 mg by mouth daily. Active glyburide-metfo rmin (GLUCOVANCE) 5-500 mg per tablet Take 1 tablet by mouth 2 times daily. 02/23/2014 Active metoprolol succinate XL (TOPROL XL) 50 mg tablet Take 50 mg by mouth once a day. 08/02/2023 Active montelukast (SINGULAIR) 10 mg tablet Take 10 mg by mouth nightly. 02/04/2024 Active omeprazole (PriLOSEC) 40 mg capsule Take 40 mg by mouth once a day. 01/14/2024 Active pioglitazone (ACTOS) 30 mg tablet Take 30 mg by mouth daily. Active Klor-Con M20 20 mEq tablet Take 20 mEq by mouth once a day. Active pravastatin (PRAVACHOL) 40 mg tablet Take 40 mg by mouth once a day. Active traMADoL (ULTRAM) 50 mg tablet Take 100 mg by mouth 2 times a day as needed for pain. Active tamsulosin (FLOMAX) 0.4 mg capsule Take 0.8 mg by mouth every night. Active levothyroxine (SYNTHROID, LEVOTHROID) 200 mcg tablet Take 200 mcg by mouth once a day. Active levalbuterol (XOPENEX HFA) 45 mcg/actuation inhaler Inhale 2 puffs by mouth every 6 hours as needed. 12/24/2023 Active latanoprost (XALATAN) 0.005% ophthalmic solution Instill 1 drop into the left eye nightly. 12/24/2023 Active potassium chloride ER (KLOR-CON) 20 mEq tablet Take 20 mEq by mouth once a day. Active brimonidine (ALPHAGAN) 0.2% ophthalmic solution Instill 1 drop into both eyes every 12 hours. Active Active Problems Problem Noted Date Diagnosed Date CORDELIA (acute kidney injury) 02/26/2024 Assessment & Plan (02/26/2024 12:58 PM EDT): Likely due to IV contrast done in the ED. Was on IV Lasix and Enalapril (now on hold). Bladder scan of PVD showed 23 and 65 mL. UA negative on 02/22 Renal ultrasound pending Seen by nephrology--> IV LR x 1 L, hopefully creatinine will plateau or improve in 24 to 48 hours. Repeat BMP Elevated serum creatinine 02/25/2024 Assessment & Plan (02/25/2024 3:10 PM EDT): Creatinine 1.04 yesterday Today rise to 1.18. Hold enalapril IV Lasix twice daily was stopped today. Hold home dose of Lasix today, and tomorrow morning. Repeat BMP Pneumonia of right lung due to infectious organism, unspecified part of lung 02/23/2024 Assessment & Plan (02/26/2024 12:54 PM EDT): Pneumonia is ruled out. No pneumonia seen on chest CT DC IV Rocephin Assessment & Plan (02/25/2024 3:06 PM EDT): Pneumonia is ruled out. No pneumonia seen on chest CT DC IV Rocephin Assessment & Plan (02/24/2024 11:58 AM EDT): RLL CAP: Initially presented w/ 4 weeks cough and shortness of breath. CXR reveals: Bilateral pleural effusions right greater the left. Superimposed right-sided consolidation would be difficult to exclude. No pneumothorax. There is cardiomegaly. No acute osseous abnormality identified. Multiple surgical clips project over the right side of the neck. Continue Ceftriaxone 1G IV daily and Azithromycin 500mg IV daily (day #2). Continue O2 supplementation to keep SpO2 > 93%. Continue supportive care w/ nebulized bronchodilator, Singulair and antitussives. BC x 2 pending. Sputum C&S pending. CTA chest in progress to assess for recurrence of cancer. Echocardiogram ordered in setting of worsening pulmonary hypertension and/or new onset heart failure. Continue CPAP overnight. D/W patient and family condition, findings and plan of care. Morbid obesity 02/23/2024 Assessment & Plan (02/26/2024 12:54 PM EDT): Assessment & Plan (02/24/2024 11:58 AM EDT): Acute and chronic respiratory failure with hypox ia 02/23/2024 Assessment & Plan (02/26/2024 12:51 PM EDT): CT PE of chest does not show any pulmonary embolism, no pneumonia, and no recurrence of cancer. It did show mucous plugging and emphysema. Patient ambulated yesterday in the hallway without oxygen and O2 remained greater then 92%. Continue witht Mucinex 600 mg twice daily Incentive spirometry Remains on RA ECHO Suboptimal visualization of left ventricle. verall left ventricular ejection fraction appears in the normal range but image quality is inadequate to estimate LVEF.. Diastolic dysfunction. Enlarged ascending aorta Suboptimal visualization of valvular structures. Assessment & Plan (02/25/2024 3:12 PM EDT): CT PE of chest does not show any pulmonary embolism, no pneumonia, and no recurrence of cancer. It did show mucous plugging and emphysema. Patient ambulated today in the hallway without oxygen and O2 remained greater then 92%. Will start Mucinex 600 mg twice daily Add incentive spirometry ECHO Suboptimal visualization of left ventricle. verall left ventricular ejection fraction appears in the normal range but image quality is inadequate to estimate LVEF.. Diastolic dysfunction. Enlarged ascending aorta Suboptimal visualization of valvular structures. Assessment & Plan (02/24/2024 12:05 PM EDT): Acute on Chronic Resp Failure w/ Hypoxia: Currently on home O2 at 2L for underlying COPD, but indicates he uses it infrequently. Presently being treated for possible right-sided consolidation. CTA in progress to rule out recurrence of cancer. PMH significant for lung cancer status post right lobectomy and VATS procedure. Echocardiogram ordered to rule out systolic or diastolic HF. PMH significant for pHTN. Diabetes mellitus 04/17/2014 Assessment & Plan (02/26/2024 12:51 PM EDT): DM: hgb a1c 7.6 indicating good glycemic control. He does indicate he maintains a diabetic diet and monitors his BS. Hold oral agents Continue with sliding scale insulin (will increase to medium SSI) as his glucose has been elevated here. Assessment & Plan (02/25/2024 3:05 PM EDT): DM: hgb a1c 7.6 indicating good glycemic control. He does indicate he maintains a diabetic diet and monitors his BS. Hold oral agents Continue with sliding scale insulin Assessment & Plan (02/24/2024 12:07 PM EDT): DM: hgb a1c 7.6 indicating good glycemic control. He does indicate he maintains a diabetic diet and monitors his BS. Oral agents held in setting of CT contrast. BS controlled w/ ISS. 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 Continue to monitor Assessment & Plan (02/25/2024 3:06 PM EDT): HTN: BP within guidelines for age. Continue to monitor Assessment & Plan (02/24/2024 12:11 PM EDT): HTN: BP within guidelines for age. Controlled w/ CCB and ACEI in setting of DM. Renal function at baseline. Family History Medical History Relation Name Comments Other Father Family history of Prostate cancer Relation Name Status Comments Father Social History Tobacco Use Types Packs/Day Years Used Date Smoking Tobacco: Former Comments:: Sex and Gender Information Value Date Recorded Sex Assigned at Male 02/23/2024 9:12 PM EDT Legal Sex Male 1:11 AM EDT Gender Identity Not on file Sexual Orientation Not on file Last Filed Vital Signs Vital Sign Reading Time Taken Comments Blood Pressure 108/64 02/27/2024 11:00 AM EDT Pulse 59 02/27/2024 11:00 AM EDT Temperature 36.6 C (97.9 F) 02/27/2024 11:00 AM EDT Respiratory Rate 20 02/27/2024 11:0 0 AM EDT Oxygen Saturation 95% 02/27/2024 11: 00 AM EDT Inhaled Oxygen Concentration - - Weight 128.2 kg (282 lb 9.6 oz) 02/27/2024 6:00 AM EDT Height 175.3 cm (5' 9 ) 02/25/2024 7:00 AM EDT Body Mass Index 41.73 02/25/2024 7:00 AM EDT Plan of Treatment Health Maintenance Due Date Last Done Comments Medicare AWV 1941 Ophthalmology Exam 1950 Urine Microalbumin 1950 Pneumococcal Vaccine: 50+ Years (1 of 2 - PCV) 12/23/1959 Zoster Vaccines (1 of 2) 1990 RSV Vaccine (60+ years old and patients) (1 - 1-dose 75+ series) 12/23/2015 COVID-19 Vaccine ( season) 2024 05/22/2022, 11/16/2021, 05/25/2021, Additional history exists Hemoglobin A1C 08/25/2024 02/24/2024 Alcohol/Substance Use Screening 08/27/2024 Depression Screening and Follow-Up 08/27/2024 Health Care Proxy Review 08/27/2024 MIGSIF Drivers of Health Annual Screening 08/27/2024 Basic Metabolic Panel 02/26/2025 02/27/2024 , 02/26/2024, 02/25/2024, Additional history exists Influenza Vaccine (#1) 2025 05/25/2021 DTaP,Tdap,and Td Vaccines (2 - Td or Tdap) 11/12/2032 11/12/2022 Hepatitis B Vaccines Aged Out No long er eligible based on patient's age to complete this topic Procedures * Due to [place] [employer] law, this organization might not be sharing negative HIV tests. Procedure Name Priority Date/Time Associated Diagnosis Comments BASIC METABOLIC PANEL Routine 02/27/2024 6:00 AM EDT HEMOGLOBIN A1C Routine 02/24/2024 5:53 AM EDT from Last 3 Months or Most Recently Relevant to Health Maintenance Results * Due to [facility] law, this organization might not be sharing negative HIV tests. * (ABNORMAL) Basic metabolic panel (02/27/2024 6:00 AM EDT) NA 137 136 - 145 mmol/L 02/27/2024 7:40 AM EDT [facility] K 4.8 3.5 - 5.1 mmol/L 02/27/2024 7:40 AM EDT [facility] Cl 99 98 - 109 mmol/L 02/27/2024 7:40 AM EDT [facility] CO2 28 23 - 32 mmol/L 02/27/2024 7:40 AM EDT [facility] BUN 51(H) 8 - 23 mg/dL 02/27/2024 7:40 AM EDT [facility] Creatinine 1.32(H) 0.50 - 1.12 mg/dL 02/27/2024 7:40 AM EDT [facility] Glucose 210(H) 60 - 99 mg/dL 02/27/2024 7:40 AM EDT [facility] Calcium 9.2 8.4 - 10.4 mg/dL 02/27/2024 7:40 AM EDT [facility] Anion Gap 15 >=0 02/27/2024 7:40 AM EDT [facility] eGFR 54(L) >=60 mL/min/1. 73m2 02/27/2024 7:40 AM EDT [facility] Comment:The estimated glomer ular filtration rate (eGFR) is calculated using a new formula developed by the NKF-ASN task force to eliminate race-based correction factors. The new formula uses serum/plasma creatinine, age, and gender to determine eGFR. A value below 60mls/min might indicate kidney disease and will be flagged. For additional information, see Mark et al, Am J Kidney Dis. 2021;79(2):268- 288, A Unifying Approach for GFR estimation: Recommendations of the NKF-ASN Task Force on Reassessing the Inclusion of Race in Diagnosing Kidney Disease . Blood Structure of peripheral vein / Unknown Venipuncture / Unknown 02/27/2024 6:00 AM EDT 02/27/2024 7:12 AM EDT us Tia Oh BI LEAD LAB BLOOD ORDERABLES Final Resul t [facility] [address] [facility] [address] [place] [address], * Hemoglobin A1c (02/24/2024 5:53 AM EDT) Hemoglobin A1c 7.6 % 02/24/2024 7:57 AM EDT [facility] Estimated Average Glucose 171 mg/dL 02/24/2024 7:57 AM EDT [facility] Blood Structure of peripheral vein / Unknown Venipuncture / Unknown 02/24/2024 5:53 AM EDT 02/24/2024 7:18 AM EDT Israel Sutton MD LAB BLOOD ORDERABLES Final Result [facility] [address] [address] [place] [address], [place] [phone] from Last 3 Months or Most Recently Relevant to Health Maintenance Insurance [facility] MEDICARE MEDICARE [facility] SUPP Advance Directives * Full Code (Latest Code Status on File) Date Activated Date Inactivated Comments 02/23/2024 10:40 PM 02/27/2024 4:59 PM Care Teams Harp Action Assembler Relationship Specialty Start Date End Date Rodolfo Mathews [address] [place] [address] [address] [place] [phone] (Work) PCP - General Endocrinology 02/23/24
[2025-03-11 09:57] VITALS: BP 118/64; PULSE 76; O2SAT 96; BMI 42.5
== END 2025-03-11 10:23 | disposition home or self-care (01) ==
LOC: HO.HPS 09:14
PROVIDERS: PCP Internal Medicine Endocrinology, Diabetes & Metabolism; Visit Provider Hospitalist
DX: J44.9 Chronic obstructive pulmonary disease, unspecified (principal); G47.33 Obstructive sleep apnea (adult) (pediatric); Z99.89 Dependence on other enabling machines and devices; R06.02 Shortness of breath; J61 Pneumoconiosis due to asbestos and other mineral fibers; J92.0 Pleural plaque with presence of asbestos; C34.90 Malignant neoplasm of unspecified part of unspecified bronchus or lung; I50.32 Chronic diastolic (congestive) heart failure
CPT/HCPCS: 99214; G2211

== ENCOUNTER → 2025-03-11 09:14 | Outpatient (BNVA) | payer MEDICARE, SELFPAY | PROVIDERS: PCP Internal Medicine Endocrinology, Diabetes & Metabolism; Visit Provider Hospitalist | DX: J44.89 Other specified chronic obstructive pulmonary disease (principal); G47.33 Obstructive sleep apnea (adult) (pediatric); R06.02 Shortness of breath; J61 Pneumoconiosis due to asbestos and other mineral fibers; J92.0 Pleural plaque with presence of asbestos; R91.1 Solitary pulmonary nodule; C34.90 Malignant neoplasm of unspecified part of unspecified bronchus or lung; I50.32 Chronic diastolic (congestive) heart failure; Z99.81 Dependence on supplemental oxygen; Z99.89 Dependence on other enabling machines and devices | CPT/HCPCS: 99212 ==

== ENCOUNTER 2025-08-24 12:22 | Outpatient (REF) | payer MEDICARE, SELFPAY ==
--- NOTE | ~2025-08-24 | CT_ITS ---
EXAMINATION: CT CHEST WITHOUT IV CONTRAST INDICATION: C34.90 - Malignant neoplasm of unspecified part of unspecified bronchus ... COMPARISON: Comparison is made with the prior examination dated 02/18/2025. TECHNIQUE: Helical CT scan of the chest was performed without intravenous contrast. Coronal and sagittal reformatted images were generated and reviewed. This CT exam was performed with one or more of the following dose reduction techniques: automated exposure control, adjustment of the mA and/or kV according to patient size, use of iterative reconstruction technique. DLP: 358 mGy-cm CHEST: THYROID: The thyroid is unremarkable. LUNGS: The patient is again noted to be status post right upper lobectomy. A suture line is seen in the mediastinum. Again seen is a 2 mm nodule in the left upper lobe (series 5, image 21 mL and a faint 3 mm nodular density more inferiorly in the left upper lobe (series 5, image 56). No new pulmonary nodules are identified. MEDIASTINUM: Again seen is a 1.3 cm superior mediastinal lymph node. ALESSANDRA: Evaluation of the hilar regions is limited by lack of intravenous contrast material. CARDIOVASCULATURE: The heart is normal in size. There is no pericardial effusion. The thoracic aorta is normal in caliber. DEGREE OF CORONARY CALCIFICATION: mild PLEURA: There are bilateral pleural calcifications. There is a trace right pleural effusion. No pneumothorax. MAIN AIRWAYS: The mainstem bronchi and proximal branches are patent. AXILLA: There is a 2.2 cm left axillary lymph node without change. BONES AND SOFT TISSUES: Unremarkable UPPER ABDOMEN: The visualized portions of the liver and spleen have an unremarkable unenhanced appearance. Again seen is a 1.1 cm low-density left adrenal adenoma. CT/CT chest wo IV con IMPRESSION: 1. Stable postsurgical changes in the right hemithorax. Stable subcentimeter left upper lobe nodules. 2. Stable mildly prominent superior mediastinal and left axillary lymph nodes. 3. Stable 1.1 cm left adrenal adenoma. Electronically signed by: Sheldon Allen MD 08/24/2025 01:26 PM [facility]
--- OUTSIDE RECORDS SUMMARY | 2025-08-24 14:20 | XMS_ITS | Clinical Summary ---
Author Organization [facility] Address [address] [place] [address] Care Team Providers Care Dispatcher Motor Vehicle Name Role Phone UrbanoRodolfo mckeon Primary Care Provider [phone] Allergies Active Allergy Reactions Criticality Noted Date [...] patients) (1 - 1-dose 75+ series) 12/23/2015 Hemoglobin A1C 08/25/2024 02/24/2024 Alcohol/Substance Use Screening 08/27/2024 Depression Screening and Follow-Up 08/27/2024 Fall Risk Screening 08/27/2024 Health Care Proxy Review 08/27/2024 Social Drivers of Health Annual Screening 08/27/2024 Basic Metabolic Panel 02/26/2025 02/27/2024 , 02/26/2024, 02/25/2024, Additional history exists Influenza Vaccine (#1) 2025 05/25/2021 COVID-19 Vaccine ( season) 2025 05/22/2022, 11/16/2021, 05/25/2021, Additional history exists DTaP,Tdap,and Td Vaccines (2 - Td or Tdap) 11/12/2032 11/12/2022 Hepatitis B Vaccines Aged Out No long er eligible based on patient's age to complete this topic Procedures * Due to [employer] law, this organization might not be sharing negative HIV tests. Procedure Name Priority Date/Time Associated Diagnosis Comments BASIC METABOLIC PANEL Routine 02/27/2024 6:00 AM EDT HEMOGLOBIN A1C Routine 02/24/2024 5:53 AM EDT from Last 3 Months or Most Recently Relevant to Health Maintenance Results * Due to [place] [employer] law, this organization might not be sharing negative HIV tests. * (ABNORMAL) Basic metabolic panel (02/27/2024 6:00 AM EDT) NA 137 136 - 145 mmol/L 02/27/2024 7:40 AM EDT [facility] K 4.8 3.5 - 5.1 mmol/L 02/27/2024 7:40 AM EDT [facility] Cl 99 98 - 109 mmol/L 02/27/2024 7:40 AM EDT [facility] CO2 28 23 - 32 mmol/L 02/27/2024 7:40 AM EDT [facility] BUN 51(H) 8 - 23 mg/dL 02/27/2024 7:40 AM EDT [facility] Creatinine 1.32(H) 0.50 - 1.12 mg/dL 02/27/2024 7:40 AM EDT [facility] Glucose 210(H) 60 - 99 mg/dL 02/27/2024 7:40 AM EDT [facility] Calcium 9.2 8.4 - 10.4 mg/dL 02/27/2024 7:40 AM EDT [facility] Anion Gap 15 >=0 02/27/2024 7:40 AM EDT [facility] eGFR 54(L) >=60 mL/min/1. 73m2 02/27/2024 7:40 AM EDT [facility] Comment:The estimated glomer ular filtration [...] 02/27/2024 7:12 AM EDT us Tia Oh SKIN CARE THERAPIST LAB BLOOD ORDERABLES Final Resul t [facility] [address] [place] [address], * Hemoglobin A1c (02/24/2024 5:53 AM EDT) Hemoglobin A1c 7.6 % 02/24/2024 7:57 AM EDT [facility] Estimated Average Glucose 171 mg/dL 02/24/2024 7:57 AM EDT [facility] Blood Structure of peripheral vein / Unknown Venipuncture / Unknown 02/24/2024 5:53 AM EDT 02/24/2024 7:18 AM EDT Israel Sutton MD LAB BLOOD ORDERABLES Final Result [facility] [address] [facility] [address] [place] [address], from Last 3 Months or Most Recently Relevant to Health Maintenance Insurance [facility] MEDICARE MEDICARE [employer] SUPP Advance Directives * Full Code (Latest Code Status on File) Date Activated Date Inactivated Comments 02/23/2024 10:40 PM 02/27/2024 4:59 PM Care Teams Dispatcher Motor Vehicle Relationship Specialty Start Date End Date Rodolfo Mathews [address] [place] [address] [address] [place] [phone] (Work) PCP - General Endocrinology 02/23/24
--- OUTSIDE RECORDS SUMMARY | 2025-08-24 14:20 | XMS_ITS | Continuity of Care Document ---
Author Organization [facility] [address] [facility] [address] [place] [address] Phone [phone] Care Team Providers Care Inside Sales Coordinator Name Role Phone Rodolfo Mathews M.D. Care Team Information Re ceiver [phone] Problems Active Problems Provider Date Type 2 [...] reference range Rodolfo Mathews M.D. 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 Social History Type Date Description Comments Sex Male Sex Unknown Tobacco Use Start: Unknown End: Unknown Former Cig[employer] tte Smoker Smoking Status Reviewed: 10/07/24 Former Cigarette Smo ker ETOH Use Occasionally consumes alcoho l Allergies and adverse reactions Active Allergies Criticality Reaction Severity Comments Date Percocet Unable to assess criticality 07/14/2025 Inactive Allergies No Known Drug Allergies 0 05/09/2022 Medications Active Medications SIG Qnty Indications Order ing Provider Date Potassium Chloride Princess [id number] Tablets ER Take 1 Tablet By Mouth Every Day 90tabs Rodolfo Mathews M.D. 08/10/2025 Mounjaro7.5mg/0.5ML Solution Auto-Inject inject 0.5 milliliters weekly 6ml E11.9 Rodolfo Mathews M.D. 02/25/2025 Tamsulosin HCL0.4mg Capsules 2 tablets by mouth at bed time 180caps Rodolfo Mathews M.D. 06/27/2024 Metoprolol Succinate ER50mg Tablets ER 24HR Take 1 Tablet By Mouth Once Daily 90tabs Rodolfo Mathews M.D. 03/26/2023 Accu-Chek SmartviewStrips use twice daily to test blood sugar as directed 200units E11.9 Rodolfo Mathews M.D. 02/12/2023 Pioglitazone CAM24rc Tablets Take 1 Tablet By Mouth Daily 90tabs Rodolfo Mathews M.D. 02/06/2023 1St Tier Unifine Pentips [id number] X 8 mm Misc use 4 times daily 400units Rodolfo Mathews M.D. 01/26/2023 Klor-Con E9610Ttx Tablets ER Take 1 Tablet By Mouth Once Daily 90tabs Rodolfo Mathews M.D. 10/20/2022 Enalapril Vxdrafd08yw Tablets Take 1 Tablet By Mouth Every Day 90tabs Rodolfo Mathews M.D. 10/20/2022 Aspirin Adult Low Gfpx92qe Tablets DR 1 by mouth every day Rodolfo Mathews M.D. 05/09/2022 Tramadol EPA11mc Tablets Take 2 Tablets By Mouth Four Times Per Day as Needed For Pain 240tabs Rodolfo Mathews M.D. 05/05/2022 Levothyroxine Xjlxkg260yup Tablets Take 1 Tablet 6 Days Per Week 90tabs Rodolfo Mathews M.D. Giztahodjp54yc Tablets Take 1 Tablet By Mouth Every Day 90tabs Rodolfo Mathews M.D. Vifbiipyfil788om Tablets Take 1 Tablet By Mouth Every Day 90tabs Rodolfo Mathews M.D. Pravastatin Qhzvsv34cn Tablets Take 1 Tablet By Mouth AT Supper 90tabs Rodolfo Mathews M.D. Svzhbinsbte6jy Tablets Take 1 Tablet By Mouth Every Day Unknown Xzblilfkqw68fe Capsules DR Take 1 Capsule By Mouth Daily Jose Jacobo History Medications Ciinnrkmtguwj1ss Tablets 1 tabs by mouth at 11pm 1tabs Rodolfo Mathews M.D. 03/18/2025 - 07/14/2025 Ybitvhdw9wd/0.5ML Solution Auto-Inject inject 0.5 milliliters weekly 6ml E11.9 Rodolfo Mathews M.D. 10/27/2024 - 02/25/2025 Mounjaro2.5mg/0.5ML Solution Auto-Inject inject 0.5 milliliters weekly 2ml Rodolfo Mathews M.D. 10/07/2024 - 10/27/2024 Vital Signs Date Vital Result Comment 07/14/2025 2:01pm BP Systolic 120 mmHg BP Diastolic 80 mmHg Heart Rate 68 /min Height 61 inches 5'1 Weight 281.00 lb BMI (Body Mass Index) 53.1 kg/m2 Results Test Acquired Date Facility Test Result H/L Range Note Glucose Fingerstick 07/14/2025 Inhouse Glucose Fingerstick 139 TSH Rfx on Abnormal to Free T4 07/14/2025 [facility] TSH Rfx on Abnormal to Free T4 0.923 uIU/mL 0.450-4.50 0 Hemoglobin A1c 07/14/2025 Inhouse Hemoglobin A1c 8.0% Cortisol 03/25/2025 [facility] Cortisol 1.1 g/dL Low 6.2-19.4 1 Cortisol 03/18/2025 [facility] Cortisol <pending> Comp. Metabolic Panel (14) 03/06/2025 [facility] Glucose 165 mg/dL High 70-99 2 BUN 29 mg/dL High 8-27 Creatinine 1.27 [...] IU/L 0-40 Alt (SGPT) 8 IU/L 0-44 Lipid Panel 03/06/2025 [facility] Cholesterol, Total 178 mg/dL 100-199 Triglycerides 157 mg/dL High 0-149 HDL Cholesterol 45 mg/dL >39 VLDL Cholesterol Enio 28 mg/dL 5-40 LDL Chol Calc (Nih) 105 mg/dL High 0-99 LDL Calc Comment: TNP Urinalysis, Complete 03/06/2025 [facility] Specific [place] 1.018 1.005-1.03 0 pH 7.5 5.0-7.5 Urine-Color Yellow Yellow Appearance Clear Clear WBC Esterase Negative Negative Protein Trace Negative/T race Glucose Negative Negative Ketones Negative Negative Occult Blood Negative Negative Bilirubin Negative Negative Urobilinogen,Se mi-Qn 1.0 mg/dL 0.2-1.0 Nitrite, Urine Negative Negative Microscopic Examination See Comment: 3 Microscopic Examination See below: 4 WBC None seen /hpf 0 - 5 [...] 1.4-7.0 Lymphs (Absolute) 1.3 x10E3/uL 0.7-3.1 Monocytes(Absol [place]) 0.5 x10E3/uL 0.1-0.9 Eos (Absolute) 0.1 x10E3/uL 0.0-0.4 Baso (Absolute) 0.0 x10E3/uL 0.0-0.2 Immature Granulocytes 1 % Not Estab. Immature Grans (Abs) 0.0 x10E3/uL 0.0-0.1 NRBC TNP Hematology Comments: TNP TSH Rfx on Abnormal to Free T4 03/06/2025 [facility] TSH RFX On Abnormal To Free T4 12.600 uIU/mL High 0.450-4.50 0 T4,Free (Direct) 1.45 ng/dL 0.82-1.77 Albumin/Creatin ine Ratio, Random Urine 03/06/2025 [facility] Creatinine, Urine 69.2 mg/dL Not Estab. Albumin, Urine 32.1 ug/mL Not Es tab. Alb/Creat Ratio 46 mg/gcreat High 0-29 5 Renin Activity, Plasma 03/06/2025 [facility] Renin Activity, Plasma 7.214 ng/mL/hr High 0.167-5.38 [address]., [address], Free 03/06/2025 [facility] Normetanephrine , Pl 65.9 pg/mL 0.0-297.2 Metanephrine, Pl <25.0 pg/mL 0.0-88.0 Aldosterone LCMS, Serum 03/06/2025 [facility] Aldosterone LCMS, Serum 3.0 ng/dL 0.0-30.0 Hemoglobin A1c 02/25/2025 Inhouse Hemoglobin A1c 9.0% Glucose Fingerstick 02/25/2025 Inhouse Glucose Fingerstick 283 TSH Rfx on Abnormal to Free T4 [...] 25 mmol/L 20-29 Calcium 9.2 mg/dL 8.6-10.2 Glucose Fingerstick 03/19/2024 Inhouse Glucose Fingerstick 133 Hemoglobin A1c 03/19/2024 Inhouse Hemoglobin A1c 7.2% Glucose Fingerstick 12/17/2023 Inhouse Glucose Fingerstick 192 Hemoglobin A1c 12/17/2023 Inhouse Hemoglobin A1c 8.6% Glucose Fingerstick 09/03/2023 Inhouse Glucose Fingerstick 109 Complete Abc With Diff 09/03/2023 [facility] WBC 7.9 K/MM3 (4.0-11.0) [...] K/MM3 (1.3-7.0) Lymph # 1.2 K/MM3 (0.8-3.1) [place]# 0.6 K/MM3 (0.4-1.3) Eo # 0.0 K/MM3 (0.0-0.4) Baso # 0.0 K/MM3 (0.0-0.1) Abs. Imm Gran 0.1 K/MM3 Neut 76.2 % High (44-76) Lymph 14.6 % Low (15-43) Monocyte 7.8 % (4.5-10.5) Eo 0.5 % (0-6) Baso 0.3 % (0-2) Imm Gran 0.6 % Comprehensive Metabolic Panl 09/03/2023 [facility] Glucose 98 mg/dL (70-99) [...] (0-41) Estimated GFR Creatinine 41 ML/MIN/1.7 3M2 6 Glucose Fingerstick 08/17/2023 Inhouse Glucose Fingerstick 118 Hemoglobin A1c 08/17/2023 Inhouse Hemoglobin A1c 6.6% Glucose Fingerstick 05/09/2023 Inhouse Glucose Fingerstick 89 TSH With Reflex To FT4 03/15/2023 [facility] TSH With Reflex To FT4 1.62 uIU/mL (0.4-4.2) Glucose Fingerstick 03/15/2023 Inhouse Glucose Fingerstick 263 Hemoglobin A1c 03/15/2023 Inhouse Hemoglobin A1c 8.0% Order 12/26/2022 Inhouse EKG <pending> Glucose Fingerstick 12/26/2022 Inhouse Glucose Fingerstick 77 Ferritin 12/26/2022 [facility] Ferritin 269 NG/ML (16-294) Vitamin B12 12/26/2022 [facility] Vitamin B12 580 pg/mL (232-1245) Free T4 12/26/2022 [facility] Free T4 1.89 ng/dL High (0.70-1.80 ) Complete Abc With Diff 12/26/2022 [facility] WBC 7.5 K/MM3 (4.0-11.0) [...] K/MM3 (1.3-7.0) Lymph # 1.5 K/MM3 (0.8-3.1) [place]# 0.7 K/MM3 (0.4-1.3) Eo # 0.1 K/MM3 (0.0-0.4) Baso # 0.0 K/MM3 (0.0-0.1) Abs. Imm Gran 0.0 K/MM3 Neut 68.8 % (44-76) Lymph 20.4 % (15-43) Monocyte 9.0 % (4.5-10.5) Eo 1.1 % (0-6) Baso 0.4 % (0-2) Imm Gran 0.3 % Comprehensive Metabolic Panl 12/26/2022 [facility] Glucose 90 mg/dL (70-99) [...] (0-41) Estimated GFR Creatinine 42 ML/MIN/1.7 3M2 7 TSH With Reflex To FT4 12/26/2022 [facility] TSH With Reflex To FT4 0.08 uIU/mL Low (0.4-4.2) Iron & Tibc 12/26/2022 [facility] Iron 54 g/dL (45-160) Unsaturated Iron Binding Robert Lee 263 g/dL (110-370) Est T. Iron Bind Capacity 317 g/dL (155-530) % Iron Saturation 17 % Low (20-55) Hemoglobin A1c 12/13/2022 Inhouse Hemoglobin A1c 7.8% Glucose Fingerstick 12/13/2022 Inhouse Glucose Fingerstick 152 Glucose Fingerstick 08/14/2022 Inhouse Glucose Fingerstick 139 Comprehensive Metabolic Panl 08/07/2022 [facility] Glucose 141 mg/dL High (70-99) 8 BUN 41 mg/dL High (8-23) Creatinine 1.4 [...] (0-41) Estimated GFR Creatinine 51 ML/MIN/1.7 3M2 9 Lipid Panel 08/07/2022 [facility] Cholesterol, Total 155 mg/dL (<200) Triglyceride 196 mg/dL High (<150) 1 0 HDL Chol 48 mg/dL (>39) LDL Cholesterol, Calculated 68 mg/dL (0-130) Non HDL Cholesterol (Calc) 107 mg/dL (<160) Urinalysis Complete 08/07/2022 [facility] Appear/Color LIGHT YELLOW 11 SP. [place] 1.015 (1.002-1.0 30) Urine PH 6.0 (5.0-8.0) Urine Albumin NEGATIVE (Neg) Urine Glucose 2+ Abnormal (Neg) Urine Ketones NEGATIVE (Neg) Urine Bilirubin NEGATIVE (Neg) Urine Hemoglobin NEGATIVE (Neg) Urine Nitrite NEGATIVE (Neg) Urine Leukocyte NEGATIVE (Neg) Urobilinogen NORMAL mg/dL (Norm) Urine WBCs <1 /HPF (0-5) Urine RBCs <1 /HPF (0-3) Squamous Epith <1 /HPF (0-8) Hyaline Cast 1 LPF (0-2) Hemoglobin A1c 08/07/2022 [facility] Hemoglobin A1c 6.5 % High (4.0-5.6) 12 Complete Abc With Diff 08/07/2022 [facility] WBC 9.5 K/MM3 (4.0-11.0) [...] High (1.3-7.0) Lymph # 1.4 K/MM3 (0.8-3.1) [place]# 0.7 K/MM3 (0.4-1.3) Eo # 0.0 K/MM3 (0.0-0.4) Baso # 0.0 K/MM3 (0.0-0.1) Abs. Imm Gran 0.1 K/MM3 Neut 76.5 % High (44-76) Lymph 14.7 % Low (15-43) Monocyte 7.7 % (4.5-10.5) Eo 0.3 % (0-6) Baso 0.2 % (0-2) Imm Gran 0.6 % TSH 08/07/2022 [facility] TSH 0.48 uIU/mL (0.4-4.2) Urinary Microalbumin 08/07/2022 [facility] Micro-Albumin 24.7 mg/L High (<20) 13 Malb/Creat Ratio 59.5 MG/GM High (0-20) Urine Creat For Micro Albumin 41.5 mg/dL Hemoglobin A1c 05/09/2022 [facility]house Hemoglobin A1c 7.2% Glucose Fingerstick 05/09/2022 Inhouse Glucose Fingerstick 129 1 Please Note: The ref erence interval and flagging for this test is for an AM collection. If this is a PM collection please use: Cortisol PM: 2.3-11.9 2 Test(s) 230897-Leehj terone was developed and its performance characteristics determined by [facility]. It has not been cleared or approved by the Food and Drug Administration. Test(s) 269055-Ofzbe Activity, Plasma was developed and its performance characteristics determined by [facility]. It has not been cleared or approved by the Food and Drug Administration. Test(s) 417209-Qkdimamnqqtycbs, Pl; 440286-Kvpbqvoxjmhy, Pl was developed and its performance characteristics determined by [facility]. It has not been cleared or approved by the Food and Drug Administration. 3 Microscopic follows if indicated. 4 Microscopic was monie cated and was performed. 5 Normal: 0 - 29 Moderately increased: 30 - 300 Severely increased: >300 6 Creatinine based est imated glomerular filtration (eGFR) in adults is calculated using the National Kidney Foundation recommended 2020 CKD-EPI equation. Estimates GFR from serum creatinine, age and sex. 7 Creatinine based est imated glomerular filtration (eGFR) in adults is calculated using the National Kidney Foundation recommended 202 CKD-EPI equation. Estimates GFR from serum creatinine, age and sex. 8 Patient not fasting 9 Creatinine based est imated glomerular filtration (eGFR) in adults is calculated using the National Kidney Foundation recommended 2020 CKD-EPI equation. Estimates GFR from serum creatinine, age and sex. 10 Patient not fasting 11 CLEAR 12 MONITORING: In known diabetic patients, hemoglobin A1c targets should be discussed with health care provider. DIAGNOSTIC USE: The [place] Diabetes Association (ADA) and the World Health [...] Research and Education Volume 43, Supplement 1 13 The urine microalbum in test is designed to monitor renal function. When screening for Bence Carrillo proteinuria, urine electrophoresis is recommended. Procedures Date Code Description Status 06/20/2023 S9982 Medical Records Copying Fee, Per Page Completed 01/23/2023 G0180 Physician Certification Serv ices, Per Certification Period Completed 12/26/2022 68736 Electrocardiogram Complete C ompleted Medical Devices Description No Information Available Encounters Type Date Location Provider Dx Diagnosis Office Visit 07/31/2025 9:54a Main Office Rodolfo Mathews M.D. E11.9 Type 2 diabetes mellitus without complications I10 Essential (primary) hypertension Assessments Date Code Description Provider 07/31/2025 E11.9 Type 2 diabetes mellitus without complications Rodolfo Mathews M.D. 07/31/2025 I10 Essential (primary) hyperten rosa Mathews M.D. Plan of Treatment Future Appointment(s):* 10/07/2025 2:45 pm - Rodolfo Mathews M.D. at Main Office 07/14/2025 - Rodolfo Mathews M.D.* E11.9 Type 2 diabetes mellitus without complications Functional Status Description No Information Available Mental Status Description No Information Available Referrals Refer to Dr Reason for Referral Status Appt Donnell e [facility] Cardiology (N ew Patients) Palpitations Patient Declined [address] [facility] [address] [place], [place] [id number] [phone] [facility] ABNORMAL TIBIA/? METASTATIC DI SEASE Closed 10/01/2023 [address] [place] [address] [phone] [facility] LEFT LEG WOUND Closed [address] [place] [address] [phone]
--- OUTSIDE RECORDS SUMMARY | 2025-08-24 14:20 | XMS_ITS | Clinical Summary ---
Author Organization [facility] Address [address] [place] [phone] Phone Care Team Providers Care Account Resolution Expert Name Role Phone Rodolfo Mathews MD Primary Care Provider Allergies Active Allergy Reactions Criticality Noted Date Comments Oxycodone Swelling 01/31/2019 Trouble breathing Medications enalapril (VASOTEC) 20 MG tablet Take 20 mg by mouth daily. Active fenofibrate (LOFIBRA) 160 MG tablet Take 160 mg by mouth daily. Active finasteride (PROSCAR) 5 mg tablet Take 1 tablet by mouth every morning. 09/06/2023 Active flaxseed oiL 1,000 mg Cap Take by mouth daily. Active furosemide (LASIX) 40 MG tablet Take 1 tablet by mouth every morning. 09/03/2023 Active gabapentin (NEURONTIN) 300 MG capsule Take 300 mg by mouth. Active glyBURIDE-metFO RMIN (GLUCOVANCE) 5-500 mg per tablet Take 1 tablet by mouth 2 (two) times a day. Active levothyroxine (SYNTHROID, LEVOTHROID) 200 MCG tablet Take 200 mcg by mouth daily. Active metoprolol succinate (TOPROL-XL) 50 MG 24 hr tablet 08/02/2023 Act greg pioglitazone (ACTOS) 30 MG tablet Take 30 mg by mouth daily. Active KLOR-CON M20 20 mEq ER tablet 10/16/2023 Activ e pravastatin (PRAVACHOL) 40 MG tablet Take 40 mg by mouth daily. Active tamsulosin (FLOMAX) 0.4 mg Cap Take 0.8 mg by mouth nightly at bedtime. Active traMADoL (ULTRAM) 50 mg tablet Take 100 mg by mouth 2 (two) times a day. Active triamcinolone acetonide 0.1 % cream APPLY TO AFFECTED AREA ON LEG TWICE DAILY FOR UP TO 2 WEEKS ON, 1 WEEK OFF NEEDED 08/09/2023 Active Social History Tobacco Use Types Packs/Day Years Used Date Smoking Tobacco: Never Assessed Education Answer Date Recorded Are you interested in more education? Not on josey e 10/08/2023 Are you concerned about learning? Not on file 10/08/2023 No 10/08/2023 No 10/08/2023 Digital Access Answer Date Recorded No 10/08/2023 No 10/08/2023 Reliable internet access at home? Not on file 10/08/2023 Device with a working camera? Not on file Sex and Gender Information Value Date Recorded Sex Assigned at Male 10/05/2023 12:15 PM EST Legal Sex Male 12:07 PM EST Gender Identity Male 10/05/2023 12:15 PM EST Sexual Orientation Straight 10/05/2023 12 :15 PM EST Last Filed Vital Signs Vital Sign Reading Time Taken Comments Blood Pressure - - Pulse - - Temperature - - Respiratory Rate - - Oxygen Saturation - - Inhaled Oxygen Concentration - - Weight 135 kg (297 lb 9.6 oz) 11/19/2023 1:23 PM EDT Height 172.7 cm (5' 8 ) 11/19/2023 1:23 PM EDT Body Mass Index 45.25 11/19/2023 1:23 PM EDT Plan of Treatment Health Maintenance Due Date Last Done Comments CREATININE LEVEL 1940 POTASSIUM LEVEL 1940 TSH LEVEL 1940 DEPRESSION SCREENING 1952 PNEUMOCOCCAL VACCINES (50+ years) (1 of 1 - PCV) 1990 ZOSTER VACCINES (1 of 2) 1990 RSV VACCINE (1 - 1-dose 75+ series) 12/23/2015 INFLUENZA VACCINE (#1) 2025 05/25/2021 COVID-19 VACCINE ( - season) 2025 05/22/2022, 11/16/2021, 05/25/2021, Additional history exists Adult Td,Tdap Booster 11/12/2032 11/12/2022 HEPATITIS A VACCINES Aged Out No long er eligible based on patient's age to complete this topic HIB VACCINES Aged Out No longer eligi ble based on patient's age to complete this topic MENINGOCOCCAL VACCINES (ACWY) Aged Out No longer eligible based on patient's age to complete this topic MENINGOCOCCAL VACCINES (B) Aged Out N o longer eligible based on patient's age to complete this topic Medical Devices Not on file Insurance [employer]EX SUPPLEMENT MEDICARE PART A & B [employer] SUPP[employer]MENT MEDICARE PART A & B [employer] SUPPLEMENT MEDICARE PART A & B [employer] SUPPLEMENT MEDICARE PART A & B [employer] SUPPLEMENT MEDICARE PART A & B [employer] SUPPLEMENT MEDICARE PART A & B Care Teams Account Resolution Expert Relationship Specialty Start Date End Date Rodolfo Mathews MD [address] [place] [address] [place] [address] PCP - General Internal Medicine 10/05/23 Additional Source Comments The information contained in this document represents components of the legal health record. It is not the complete legal health record.[facility]
--- OUTSIDE RECORDS SUMMARY | 2025-08-24 14:20 | XMS_ITS | Encounter Summary ---
Author Organization [facility] Address [address] [place] [address] Phone Care Team Providers Care Completion Manager Name Role Phone Rodolfo Mathews MD Primary Care Provider [phone] Encounter Details Date Type Department Care Team (Late st Contact Info) Description 10/25/2023 Procedure Pass [facility] [address] [place] [address] Social History Tobacco Use Types Packs/Day Years [...] Orientation Straight 10/05/2023 12 :15 PM EST documented as of this encounter Plan of Treatment Not on file documented as of this encounter Visit Diagnoses Not on filedocumented in this encounter Care Teams Completion Manager Relationship Specialty Start Date End Date Rodolfo Mathews MD [address] [place] [address] [place] [address] PCP - General Internal Medicine 10/05/23 documented as of this encounter Additional Source Comments The information contained in this document represents components of the legal health record. It is not the complete legal health record.[facility]
--- OUTSIDE RECORDS SUMMARY | 2025-08-24 14:20 | XMS_ITS | Clinical Summary ---
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 Social History Tobacco Use Types Packs/Day [...] series) 12/23/2015 Cholesterol Screening (Lipid Panel) 07/30/2022 Falls Risk Assessment 07/30/2022 Medicare Annual Wellness Visit 07/30/2022 Social Influencers of Health Screening 07/30/2022 Diabetes: Annual Urine Albumin-Creatinine Ratio (uACR) 08/07/2024 Diabetes: Blood Sugar Contro l Test (HGBA1C) 08/25/2024 02/24/2024 Depression Screening 08/27/2024 Diabetes: Annual GFR (Glomerular Filtration Rate) 02/26/2025 02/27/2024 Hypertension/CHF/CAD Annual BMP Blood Test 02/26/2025 02/27/2024 COVID-19 Vaccine (4 - 2024-2 6 season) 2025 05/22/2022, 11/16/2021, 05/25/2021 Influenza Vaccine (#1) 2025 05/25/2021 DTaP,Tdap,and Td [...] age to complete this topic Insurance MEDICARE [facility] Advance Directives Documents on File Type Date 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
== END 2025-08-24 12:23 ==
LOC: HO.CT 12:22
PROVIDERS: PCP Pediatrics Pediatric Cardiology; Visit Provider Hospitalist
DX: R91.1 Solitary pulmonary nodule (principal); C34.90 Malignant neoplasm of unspecified part of unspecified bronchus or lung
CPT/HCPCS: 71250

== ENCOUNTER → 2025-08-24 12:26 | Outpatient (BNV) | payer MEDICARE, SELFPAY | PROVIDERS: PCP Pediatrics Pediatric Cardiology; Visit Provider Radiology Diagnostic Radiology | DX: D35.02 Benign neoplasm of left adrenal gland (principal); R91.8 Other nonspecific abnormal finding of lung field | CPT/HCPCS: 71250 ==